=== PATIENT | female | born 1975 | race Two or more races ===

== ENCOUNTER → 2023-02-02 09:50 | Outpatient (BNVA) | payer SELFPAY | PROVIDERS: PCP Physician Assistant Medical; Visit Provider Physician Assistant Surgical | DX: Z13.89 Encounter for screening for other disorder (principal) ==

== ENCOUNTER → 2023-03-03 07:59 | Outpatient (BNVA) | payer MEDICARE, MEDICAID, SELFPAY | PROVIDERS: PCP Physician Assistant Medical; Referring Provider Physician Assistant Medical; Visit Provider Physician Assistant Surgical | DX: L98.7 Excessive and redundant skin and subcutaneous tissue (principal); E66.3 Overweight; Z68.28 Body mass index [BMI] 28.0-28.9, adult | CPT/HCPCS: 99202 ==

== ENCOUNTER → 2023-04-08 08:34 | Outpatient (BNVA) | payer MEDICARE, MEDICAID, SELFPAY | PROVIDERS: Visit Provider Physician Assistant Surgical | DX: E66.3 Overweight (principal); L98.7 Excessive and redundant skin and subcutaneous tissue; K59.00 Constipation, unspecified; Z68.27 Body mass index [BMI] 27.0-27.9, adult | CPT/HCPCS: 99212 ==

== ENCOUNTER 2023-06-01 11:57 | Outpatient (AMB) | payer MEDICARE, MEDICAID, SELFPAY ==
--- NOTE | 2023-06-01 11:58 | MHC.OFFVISWM ---
Intake VS Expanded 06/01/23 12:05 Height 5 ft 1 in Weight 144 lb 12.8 oz BMI 27.4 BP 112/64 Blood Pressure Location Rt brachial Blood Pressure Position Sitting Pulse 69 Pulse Source Pulse Oximeter Temp 98.2 F Temperature Source Temporal Artery Scan Pulse Oximetry 98 Oxygen Delivery Method Room Air Body Fat 39.6 Body Fat Percentage 27.4 Free Fat Mass 105.0 Muscle Mass 99.6 Visceral Mass 5.0 Water Mass 74.8 BMR 1,404 Intake Visit Reasons: (OV) F/U Panniculectomy Chief Controller Station Required: No Allergies acetaminophen [From Percocet] Allergy (Mild, Verified 06/01/23 12:02) OVERDOSE oxycodone [From Percocet] Allergy (Mild, Verified 06/01/23 12:02) OVERDOSE Medication List - Last Reconciled 06/01/23 by TESSA Ludwig bisacodyl (Dulcolax (bisacodyl)) 10 mg SD DAILY 2 days clonazepam 0.5 mg PO TID PRN diclofenac sodium 75 mg PO BID doxepin 50 mg PO BEDTIME famotidine 40 mg PO DAILY gabapentin 300 mg PO DAILY levalbuterol tartrate 45 mcg/actuation 0 mcg inhalation DAILY sennosides (Senna Laxative) 17.2 mg (2 x 8.6 mg) PO BEDTIME PRN 90 days HPI HPI Comments History of Present Illness Details 47 year old female presents to the office for evaluation for possible panniculectomy due to excess skin.? She underwent gastric surgery, gastric bypass on 06/16/[address] Michael Morgan at [facility] in [place], [place].? Initial weight upon presenting to their program was 217 pounds.? She has lost a total of 64.4 pounds since the surgery and as a result has excess skin.? She states she had a lowest weight of 135 pounds and maintained a steady weight for approximately 2 years.? She states that over the last 2 years she has had a 20 pound weight gain.? She had a rash in April 2022 requiring Nystatin powder but has had recurrences.? She reports she was recently in [place] and developed a rash under her pannus due to the heat and this was not only painful but itchy as well.? She applied powder and cream and the rash resolved after 4-5 days.??? The excess skin has interfered with her ADL activities such as bending over, tying shoes and putting on socks/shoes. ? The extra skin has caused a functional deficit due to the physical deformity.? She reports the extra skin to her abdomen is causing her significant difficulty with hygene of her genitals as well. The surgery is expected to restore and improve the functional deficit. She returns to the office today in follow up for the above issue.? Current weight is 144.8 pounds with a BMI of 27.3.? She has lost 9.6 pounds since her appointment.? She denies any current rashes but she applies deoderant to the skin fold under her pannus daily as well as doing her best to keep a fabric barrier between her skin folds. ? She also reports resolution of her constipation.?? Continues MVI daily? Meal plan: 2 Premier Protein shakes, (1.5 scoop in 8 oz low fat unsweetened almond milk each) First shake at 8am-10am Second shake at? 12pm-2pm Dinner at 5pm (5 forks of protein and 5 forks of salad/vegetables). welsh yogurt? at 7-9 pm Drinking 32 oz water daily Exercise plan: Walking outside 4 days per week, 30 minutes, not tracking calories.? PFSH Medical History Pulmonary embolism Right leg DVT Surgical History Hx of breast reduction, elective Hx of section Hx of gastric bypass Family History Mother Diabetes Father No problems noted. Daughter No problems noted. Son No problems noted. Son Prediabetes Social History Alcohol intake: never Patient Tobacco Use Status: Never used Tobacco Physical Exam Vital Signs: Last Vital Signs Temp 98.2 F 06/01/23 12:05 Pulse 69 06/01/23 12:05 BP 112/64 06/01/23 12:05 Pulse Ox 98 06/01/23 12:05 Oxygen Delivery Method Room Air 06/01/23 12:05 BMI result Body Mass Index 27.4 Skin Other: grade 2 pannus, no current dermatitis Assessment & Plan Assessment & Plan (1) Excess skin: Code(s): L98.7 - Excessive and redundant skin and subcutaneous tissue Plan: submit for approval for excess skin removal which is medically necessary to restore function and reduce impact on ADLs and hygiene. Coding Level of Care Code Est Pt Level 3 (39715) Diagnoses Excess skin L98.7
[2023-06-01 12:05] VITALS: BP 112/64; PULSE 69; TEMP 36.8; O2SAT 98; BMI 27.4
== END 2023-06-01 13:07 | disposition home or self-care (01) ==
PROVIDERS: PCP Physician Assistant Medical; Visit Provider Physician Assistant Surgical
DX: L98.7 Excessive and redundant skin and subcutaneous tissue (principal)
CPT/HCPCS: 99213

== ENCOUNTER → 2023-06-01 11:57 | Outpatient (BNVA) | payer MEDICARE, MEDICAID, SELFPAY | PROVIDERS: PCP Physician Assistant Medical; Visit Provider Physician Assistant Surgical | DX: L98.7 Excessive and redundant skin and subcutaneous tissue (principal); Z98.84 Bariatric surgery status | CPT/HCPCS: 99212 ==

== ENCOUNTER 2024-03-06 18:41 | Emergency (ER) | payer MEDICARE, MEDICAID, SELFPAY ==
[2024-03-06 18:58] VITALS: BP 163/64; PULSE 81; RESP 18; TEMP 36.6; O2SAT 97; BMI 28.2
[2024-03-06 20:50] LABS: MANUAL DIFF FLAG NO
[2024-03-06 20:52] LABS: Basophils Percent Auto 0.4 % (0-2); Eosinophils Absolute Auto 0.1 X10*3/uL (0.0-0.4); Eosinophils Percent Auto 1.2 % (0-4); Hematocrit 33.2 % (37.0-47.0); Hemoglobin 10.3 g/dl (12.0-16.0); Imm Gran Abs Auto 0.02 X10*3/uL (0.00-0.03); Imm Gran Pct Auto 0.2 % (0.0-0.4); Lymphocytes Absolute Auto 3.9 X10*3/uL (1.2-4.9); Lymphocytes Percent Auto 47.4 % (20-40); Mean Corpuscular Hemoglobin 27.7 pg (27.0-33.0); Mean Corpuscular Volume 89.2 fL (80.0-98.0); Mean Platelet Volume 9.2 fL (9.4-12.3); Monocytes Absolute Auto 0.7 X10*3/uL (0.1-1.2); Neutrophils Absolute Auto 3.5 x10*3/uL (2.0-8.3); Neutrophils Percent Auto 42.8 % (45-73); Platelet Count 323 X10*3/uL (160-400); Red Blood Count 3.72 X10*6/uL (4.20-5.50); Red Cell Distribution Width 16.4 % (11.0-16.0); White Blood Count 8.1 X10*3/uL (4.8-10.8)
[2024-03-06 21:12] LABS: Alanine Aminotransferase 13 U/L (0-31); Albumin Level 4.1 g/dL (3.5-5.0); Alkaline Phosphatase 93 U/L (39-117); Anion Gap 14 (12-20); Aspartate Amino Transferase 16 U/L (5-31); Bilirubin Total 0.2 mg/dL (0.0-1.0); Blood Urea Nitrogen 13 mg/dL (9-16); Calcium 9.2 mg/dL (8.4-10.2); Carbon Dioxide 19 mmol/L (22-29); Chloride 111 mmol/L (96-108); Creatinine Clr Calc Pharmacy 73.7; Estimated Glomerular Filt Rate > 60; Glucose Random 78 mg/dL (60-115); Potassium 3.8 mmol/L (3.3-5.1); Sodium 140 mmol/L (135-145); Total Protein 6.7 g/dL (6.5-8.0)
[2024-03-07 02:00] VITALS: BP 120/79; PULSE 99; RESP 15; TEMP 36.8; O2SAT 98
[2024-03-07 04:00] VITALS: BP 104/67; PULSE 81; RESP 16; TEMP 36.4; O2SAT 98
--- NOTE | 2024-03-07 04:28 | ED_ITS ---
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 burning sensation on the face multiple complaints denies any significant depression/SI Related Data Home Medications ?Medication ?Instructions ?Recorded ?Confirmed clonazepam 0.5 mg tablet 0.5 mg PO TID PRN 03/03/23 06/01/23 diclofenac sodium 75 mg 75 mg PO BID 03/03/23 06/01/23 tablet,delayed release doxepin 50 mg capsule 50 mg PO BEDTIME 03/03/23 06/01/23 famotidine 40 mg tablet 40 mg PO DAILY 03/03/23 06/01/23 gabapentin 300 mg capsule 300 mg PO DAILY 03/03/23 06/01/23 levalbuterol tartrate 45 0 mcg inhalation DAILY 03/03/23 06/01/23 mcg/actuation aerosol inhaler Previous Rx's ?Medication ?Instructions ?Recorded bisacodyl 10 mg rectal suppository 10 mg GA DAILY 2 days #12 ea 04/08/23 (Dulcolax (bisacodyl)) sennosides 8.6 mg tablet (Senna 17.2 mg (2 x 8.6 mg) PO BEDTIME 11/27/23 Laxative) PRN constipation 90 days #90 tabs Allergies Allergy/AdvReac Type Severity Reaction Status Date / Time acetaminophen [From Percocet] Allergy Mild OVERDOSE Verified 03/06/24 19:02 oxycodone [From Percocet] Allergy Mild OVERDOSE Verified 03/06/24 19:02 Review of Systems 2 Review of Systems: Yes all other systems are reviewed and are negative PMFSH Past Medical History Medical History Pulmonary embolism Right leg DVT Surgical History Hx of section Hx of breast reduction, elective Hx of gastric bypass Family History Family History Mother Diabetes Father No problems noted. Daughter No problems noted. Son No problems noted. Son Prediabetes Social History Social History Alcohol intake: never Patient Tobacco Use Status: Never used Tobacco Smoked in Last 30 Days: No Use of substances other than those prescribed or required for medical reasons: No Advance Directives: No Advance Directives Information Provided: No Do you have a plan to hurt others: No Plan Physical Exam ED Vital Signs: Vital Signs - 24 hr 03/06/24 18:58 03/07/24 02:00 03/07/24 04:00 Temperature 97.9 F 98.2 F 97.6 F Pulse Rate 81 99 81 Respiratory Rate 18 15 16 Blood Pressure 163/64 H 120/79 104/67 Pulse Oximetry 97 98 98 Oxygen Delivery Method Room Air Room Air Room Air 03/07/24 06:00 Temperature 98.2 F Pulse Rate 90 Respiratory Rate 16 Blood Pressure 111/76 Pulse Oximetry 97 Oxygen Delivery Method Room Air BMI result Body Mass Index 28.2 Appearance: Alert. Oriented X3. No acute distress. Anxious Eyes: PERRLA, No Nystagmus ENT: Pharynx normal. Oral Mucosa moist thinning of the hair in the frontal area Neck: Normal inspection. Neck supple. CVS: Normal heart rate and rhythm. Pulses normal. Respiratory: No respiratory distress. Equal air entry bilateral, no wheezing/rales/rhonchi Abdomen: Soft and nontender. Bowel sounds are present, no mass palpable, no CVA tenderness Skin: Skin warm and dry. Normal skin color. Normal skin turgor. Extremities: No lower extremity edema. No calf tenderness Neuro: Oriented X 3. Medical Decision Making Medical Decision Making MDM Narrative: Patient with increased anxiety with multiple complaints felt better after staying in the ER will discharge patient home advised to follow with therapist and PCP Lab Data MDM Lab Attestation statement: I reviewed the patient's lab results. 03/06/24 20:46 03/06/24 20:46 Labs: Lab Results 03/06/24 Range/Units 20:46 WBC 8.1 (4.8-10.8) X10*3/uL RBC 3.72 L (4.20-5.50) X10*6/uL Hgb 10.3 L (12.0-16.0) g/dl Hct 33.2 L (37.0-47.0) % MCV 89.2 (80.0-98.0) fL MCH 27.7 (27.0-33.0) pg MCHC 31.0 (31.0-35.0) g/dl RDW 16.4 H (11.0-16.0) % Plt Count 323 (160-400) X10*3/uL MPV 9.2 L (9.4-12.3) fL Immature Gran % (Auto) 0.2 (0.0-0.4) % Neut % (Auto) 42.8 L (45-73) % Lymph % (Auto) 47.4 H (20-40) % Converse % (Auto) 8.0 (2-11) % Eos % (Auto) 1.2 (0-4) % Baso % (Auto) 0.4 (0-2) % Lymph # (Auto) 3.9 (1.2-4.9) X10*3/uL Converse # (Auto) 0.7 (0.1-1.2) X10*3/uL Eos # (Auto) 0.1 (0.0-0.4) X10*3/uL Baso # (Auto) 0.0 (0.0-0.2) X10*3/uL Abs Immat Gran (auto) 0.02 (0.00-0.03) X10*3/uL Absolute Neuts (auto) 3.5 (2.0-8.3) x10*3/uL Absolute Nucleated RBC 0.000 (0.0-0.012) X10*3/uL Nucleated RBC % (auto) 0.0 (0.0-0.2) /100WBC Sodium 140 (135-145) mmol/L Potassium 3.8 (3.3-5.1) mmol/L Chloride 111 H (96-108) mmol/L Carbon Dioxide 19 L (22-29) mmol/L Anion Gap 14 (12-20) BUN 13 (9-16) mg/dL Creatinine 0.83 (0.5-1.4) mg/dL Estim Creat Clear Calc 73.7 Estimated GFR > 60 Random Glucose 78 (60-115) mg/dL Calcium 9.2 (8.4-10.2) mg/dL Total Bilirubin 0.2 (0.0-1.0) mg/dL AST 16 (5-31) U/L ALT 13 (0-31) U/L Alkaline Phosphatase 93 (39-117) U/L Total Protein 6.7 (6.5-8.0) g/dL Albumin 4.1 (3.5-5.0) g/dL Discharge Plan Discharge Clinical Impression: Anxiety Patient Disposition: Home, Self-Care Instructions: Anxiety (ED) Additional Instructions: Continue medication for anxiety as prescribed by your therapist/PCP Follow with your delivery motorcycle driver for your hair loss Prescriptions: No Action sennosides [Senna Laxative] 8.6 mg tablet 17.2 mg PO BEDTIME PRN (Reason: constipation) 90 Days Qty: 90 0RF gabapentin 300 mg capsule 300 mg PO DAILY diclofenac sodium 75 mg tablet,delayed release (DR/EC) 75 mg PO BID doxepin 50 mg capsule 50 mg PO BEDTIME famotidine 40 mg tablet 40 mg PO DAILY clonazepam 0.5 mg tablet 0.5 mg PO TID PRN levalbuterol tartrate 45 mcg/actuation HFA aerosol inhaler 0 mcg inhalation DAILY bisacodyl [Dulcolax (bisacodyl)] 10 mg suppository 10 mg GA DAILY 2 Days Qty: 12 0RF Print Language: Cambodian
[2024-03-07 06:00] VITALS: BP 111/76; PULSE 90; RESP 16; TEMP 36.8; O2SAT 97
[2024-03-07 06:41] VITALS: BP 111/76; PULSE 90; RESP 16; TEMP 36.8; O2SAT 97
== END 2024-03-07 06:41 | disposition home or self-care (01) ==
PROVIDERS: Emergency Provider Internal Medicine
DX: F41.9 Anxiety disorder, unspecified (principal); R20.8 Other disturbances of skin sensation; Z86.718 Personal history of other venous thrombosis and embolism
CPT/HCPCS: 36415; 80053; 85025; 99283; 99284

== ENCOUNTER 2024-03-09 12:37 | Outpatient (AMB) | payer MEDICARE, MEDICAID, SELFPAY ==
--- NOTE | 2024-03-09 13:30 | MHC.OFFVISWM ---
VS Expanded 03/09/24 13:37 BP 131/80 Blood Pressure Location Rt brachial Blood Pressure Position Sitting Pulse 96 Pulse Source Pulse Oximeter Temp 97.8 F Temperature Source Temporal Artery Scan Pulse Oximetry 99 Oxygen Delivery Method Room Air Height 5 ft 1 in Weight 141 lb 6.4 oz BMI 26.7 Body Fat % 25.9 Body Fat Mass 36.6 Fat Free Mass 104.8 Visceral Fat Rating 5.0 Body Water % 52.7 Body Water Mass 74.6 Muscle Mass/Score 99.4 Basal Metabolic Rate/Score 1,395 Intake Visit Reasons: (OV) Panniculectomy Consult Allergies acetaminophen [From Percocet] Allergy (Mild, Verified 03/09/24 13:33) OVERDOSE oxycodone [From Percocet] Allergy (Mild, Verified 03/09/24 13:33) OVERDOSE HPI Comments Details: 47 year old female presents to the office for evaluation for possible panniculectomy due to excess skin.? She underwent gastric surgery, gastric bypass on 06/16/[address] Michael Morgan at [facility] in [place], [place].? Initial weight upon presenting to their program was 217 pounds.? She has lost a total of 75.6 pounds since the surgery or 34.8 % total body weight loss and as a result has excess skin of her abdomen.? She reports she was recently in [place] and developed a rash under her pannus due to the heat and this was not only painful but itchy as well.? She applied powder and cream and the rash resolved after 4-5 days.???The excess skin has interfered with her ADL activities such as bending over, tying shoes and putting on socks/shoes. ? The extra skin has caused a functional deficit due to the physical deformity.? She reports the extra skin to her abdomen is causing her significant difficulty with hygene of her genitals as well. The surgery is expected to restore and improve the functional deficit. She was last seen in the office in May 2023. At that time, her weight was 144.8 lb with a BMI of 27.3. Weight today is 141.4 lb with a BMI of 26.7, indicating that she is remaining relatively stable in her weight over the last 10 months. She returns to the office today in follow up for the above issue.? She was away for the last 10 months helping her mother recover from illness in [place]. She denies any current rashes but she applies deoderant to the skin fold under her pannus daily as well as doing her best to keep a fabric barrier between her skin folds. She has been using Nystatin cream as needed when the rash recurrs. This has helped resolve the issue, only to recurr again. Worse with warmer weather andincreased activity. ? She also reports resolution of her constipation.?? Continues MVI daily? Meal plan: 2 Premier Protein shakes, (1.5 scoop in 8 oz low fat unsweetened almond milk each) First shake at 8am-10am Second shake at? 12pm-2pm Dinner at 5pm (6 forks of protein and 6 forks of salad/vegetables). Drinking 32 oz water daily Exercise plan: Walking outside 5 days per week, 20-30 minutes, not tracking calories.? PFSH Medical History Pulmonary embolism Right leg DVT Surgical History Hx of section Hx of breast reduction, elective Hx of gastric bypass Family History Mother Diabetes Father No problems noted. Daughter No problems noted. Son No problems noted. Son Prediabetes Social History Alcohol intake: never Patient Tobacco Use Status: Never used Tobacco Physical Exam Vital Signs: Last Vital Signs Temp 97.8 F 03/09/24 13:37 Pulse 96 03/09/24 13:37 BP 131/80 03/09/24 13:37 Pulse Ox 99 03/09/24 13:37 Oxygen Delivery Method Room Air 03/09/24 13:37 BMI result Body Mass Index 26.7 Const General: healthy appearing and no acute distress Resp Effort & Inspection: normal respiratory effort Auscultation: clear to auscultation bilaterally Cardio Rate: regular rate Rhythm: regular rhythm GI Auscultation: normal bowel sounds Skin Other: Grade 2 pannus without active rash. Evidence of old rash by way of slight skin discoloration underneath the abdominal pannus Extrem General: Yes normal to inspection Assessment & Plan Assessment & Plan (1) Excess skin: Code(s): L98.7 - Excessive and redundant skin and subcutaneous tissue Category: Medical Plan: Continue with p.r.n. antifungal. She has maintained a healthy and stable weight over the last 10 months and is experiencing multiple negative impacts to her ADLs with excess skin by way of grade 2 pannus. It is appropriate and medically necessary to have the excess skin surgically removed. Pictures were taken and we will submit to insurance for approval
[2024-03-09 13:37] VITALS: BP 131/80; PULSE 96; TEMP 36.6; O2SAT 99; BMI 26.7
== END 2024-03-09 14:32 | disposition home or self-care (01) ==
PROVIDERS: PCP Physician Assistant Medical; Visit Provider Physician Assistant Surgical
DX: L98.7 Excessive and redundant skin and subcutaneous tissue (principal)
CPT/HCPCS: 99213

== ENCOUNTER → 2024-03-09 12:37 | Outpatient (BNVA) | payer MEDICARE, MEDICAID, SELFPAY | PROVIDERS: PCP Physician Assistant Medical; Visit Provider Physician Assistant Surgical | DX: L98.7 Excessive and redundant skin and subcutaneous tissue (principal); E65 Localized adiposity | CPT/HCPCS: 99212 ==

== ENCOUNTER 2024-06-13 08:03 | Outpatient (AMB) | payer MEDICARE, MEDICAID, SELFPAY ==
[2024-06-13 11:56] VITALS: BMI 26.1
--- NOTE | 2024-06-13 11:56 | A.OFFVIS_ITS ---
VS Expanded 06/13/24 11:56 Height 5 ft 1 in Weight 138 lb 2 oz BMI 26.1 Intake Visit Reasons: TV Pre Op Panniculectomy 06/23/24 Allergies acetaminophen [From Percocet] Allergy (Mild, Verified 06/13/24 11:56) OVERDOSE oxycodone [From Percocet] Allergy (Mild, Verified 06/13/24 11:56) OVERDOSE Medication List - Last Reconciled 06/13/24 by Wilfrid Warren MD bisacodyl (Dulcolax (bisacodyl)) 10 mg [place] DAILY 2 days cephalexin 500 mg PO Q12H clonazepam 0.5 mg PO TID PRN diclofenac sodium 75 mg PO BID doxepin 50 mg PO BEDTIME famotidine 40 mg PO DAILY gabapentin 300 mg PO DAILY levalbuterol tartrate 45 mcg/actuation 0 mcg inhalation DAILY ondansetron 4 mg PO Q12H sennosides (Senna Laxative) 17.2 mg (2 x 8.6 mg) PO BEDTIME PRN 90 days HPI HPI TV Pre Op Panniculectomy 06/23/24: Details: Start time: 11.52am, End time: 12.22pm ?I spent 25 minutes speaking with the patient on the phone plus an additional 5 minutes reviewing and updating records for a total of 30 minutes HPI Comments Details: Overall weight loss: 78.8 lbs, or 36.3% TBWL Breakfast: eggs and toast Lunch: skips Powder Premier shake with 1% milk Dinner: meat and salad [facility] protein bar [facility] Medical History Pulmonary embolism Right leg DVT Surgical History Hx of section Hx of breast reduction, elective Hx of gastric bypass Family History Mother Diabetes Father No problems noted. Daughter No problems noted. Son No problems noted. Son Prediabetes Social History Alcohol intake: never Patient Tobacco Use Status: Never used Tobacco Physical Exam Vital Signs: BMI result Body Mass Index 26.1 Telehealth Telehealth Telehealth Platform: Telephone Location of provider rendering services: practice address Location of patient: address on file Patient Identification confirmed using: Name, : Yes Telehealth method: voice only Patient verbally consented to treatment: Yes Patient verbally consented to billing insurance company: Yes Patient informed of any privacy concerns related to visit: Yes Minutes spent on Phone/Video with Pt.: 30 Assessment & Plan Assessment & Plan (1) Excess skin: Code(s): L98.7 - Excessive and redundant skin and subcutaneous tissue Category: Medical Plan: 1. Plan for panniculectomy. Risks of infection, bleeding, asymmetry, wound dehiscence and blood clots were discussed with the patient. 2. You will have a drain the abdomen that may stay a few weeks before it may be removed 3. You will need to be doing sponge baths the first 1-2 weeks. No showers. You need to have help at home to get you up and limit your activities as much as possible for at least the 4-6 weeks after surgery 4. We will arrange for a visiting nurse to come at home to help you with dressing changes and send me pictures of the procedures. We will send at your home supplies for the dressing changes. 5. Change nutritional plan to TWO Premier shakes (HALF scoop each in 8oz almond milk) at 10am-12pm and 1pm-3pm, one [facility] protein bar at 4pm-6pm, one meal at 7pm (6 forks of protein and 6 forks of salad or vegetables) and one more [employer] protein bar at 9pm-11pm. This will improve weight loss and healing after surgery. 6. Continue all vitamins 7. Stop the Diclofenac as of today Thursday06/13/24 and the Gabapentin as of 06/20/24. 8. Do blood work not fasting any day between Thursday06/14/24 and Thursday06/17/24 and order picker the antibiotic prescription from your pharmacy 9. Risks and complications were discussed the possibility of bleeding that may require transfusion, loss of the umbilicus, wound dehiscence or infection, dog ears , flap asymmetry. We also discussed the importance of strict avoidance of weight lifting. 10. Avoid aspirin, motrin, ibuprofen, Aleve, Advil, Naproxyn. Only Tylenol is OK Orders: Orders Comprehensive Met. Panel Today K90.9 - Intestinal malabsorption, unspecified TSH reflex Free T4 Today K90.9 - Intestinal malabsorption, unspecified Vitamin A Today K90.9 - Intestinal malabsorption, unspecified Hemoglobin A1c Today K90.9 - Intestinal malabsorption, unspecified Prothrombin Time INR Today K90.9 - Intestinal malabsorption, unspecified Vitamin B1 Today K90.9 - Intestinal malabsorption, unspecified Lipid Panel Today K90.9 - Intestinal malabsorption, unspecified Type and Screen Today K90.9 - Intestinal malabsorption, unspecified Vitamin B12 Today K90.9 - Intestinal malabsorption, unspecified Partial Thromboplastin Time Today K90.9 - Intestinal malabsorption, unspecified Vitamin D 25-OH Total Today K90.9 - Intestinal malabsorption, unspecified Insulin Today K90.9 - Intestinal malabsorption, unspecified IRON PROFILE Today K90.9 - Intestinal malabsorption, unspecified C Reactive Protein Today K90.9 - Intestinal malabsorption, unspecified Complete Blood Count Auto Diff Today K90.9 - Intestinal malabsorption, unspecified Ferritin Today K90.9 - Intestinal malabsorption, unspecified Zinc Today K90.9 - Intestinal malabsorption, unspecified Medications: New cephalexin 500 mg PO Q12H 60 caps 2RF M79.3 - Panniculitis, unspecified ondansetron Only take one every 12 hours as needed if you have nausea 4 mg PO Q12H 20 tabs 0RF nausea and vomiting R11.0 - Nausea
== END 2024-06-13 12:23 | disposition home or self-care (01) ==
LOC: HO.HBS 08:03
PROVIDERS: PCP Physician Assistant Medical; Visit Provider Surgery
DX: L98.7 Excessive and redundant skin and subcutaneous tissue (principal)
CPT/HCPCS: 99499

== ENCOUNTER → 2024-06-13 08:03 | Outpatient (BNVA) | payer MEDICARE, MEDICAID, SELFPAY | PROVIDERS: PCP Physician Assistant Medical; Visit Provider Surgery ==

== ENCOUNTER 2024-06-15 10:53 | Outpatient (REF) | payer MEDICARE, MEDICAID, SELFPAY ==
[2024-06-15 11:28] LABS: MANUAL DIFF FLAG NO
[2024-06-15 11:56] LABS: Basophils Percent Auto 0.4 % (0-2); Eosinophils Absolute Auto 0.1 X10*3/uL (0.0-0.4); Eosinophils Percent Auto 0.7 % (0-4); Hematocrit 35.9 % (37.0-47.0); Imm Gran Abs Auto 0.02 X10*3/uL (0.00-0.03); Imm Gran Pct Auto 0.3 % (0.0-0.4); Lymphocytes Absolute Auto 2.6 X10*3/uL (1.2-4.9); Lymphocytes Percent Auto 36.9 % (20-40); Mean Corpuscular HGB Conc 30.6 g/dl (31.0-35.0); Mean Corpuscular Hemoglobin 26.5 pg (27.0-33.0); Mean Corpuscular Volume 86.5 fL (80.0-98.0); Mean Platelet Volume 9.2 fL (9.4-12.3); Monocytes Absolute Auto 0.5 X10*3/uL (0.1-1.2); Monocytes Percent Auto 6.9 % (2-11); Neutrophils Absolute Auto 3.8 x10*3/uL (2.0-8.3); Neutrophils Percent Auto 54.8 % (45-73); Platelet Count 472 X10*3/uL (160-400); Red Blood Count 4.15 X10*6/uL (4.20-5.50); Red Cell Distribution Width 17.4 % (11.0-16.0); White Blood Count 6.9 X10*3/uL (4.8-10.8)
[2024-06-15 12:00] LABS: Estimated Average Glucose 108 mg/dL; Hemoglobin A1c % 5.4 % (<6.0)
[2024-06-15 12:03] LABS: INTERNATIONAL NORM RATIO 0.9 (0.9-1.1); Prothrombin Time 11.1 SEC (11.1-13.3)
[2024-06-15 12:06] LABS: Partial Thromboplastin Time 29.6 SEC (26.0-36.8)
[2024-06-15 12:42] LABS: Alanine Aminotransferase 16 U/L (0-31); Albumin Level 4.1 g/dL (3.5-5.0); Alkaline Phosphatase 92 U/L (39-117); Anion Gap 13 (12-20); Aspartate Amino Transferase 19 U/L (5-31); Bilirubin Total 0.2 mg/dL (0.0-1.0); Blood Urea Nitrogen 13 mg/dL (9-16); C Reactive Protein < 0.10 mg/dL (< or = 0.50); Carbon Dioxide 23 mmol/L (22-29); Chloride 107 mmol/L (96-108); Cholesterol 201 mg/dL (<200); Estimated Glomerular Filt Rate > 60; Glucose Random 87 mg/dL (60-115); HDL Cholesterol 70 mg/dL (>40); Iron 22 mcg/dL (30-160); LDL Cholesterol Calculated 108 mg/dL (<100); Percent Iron Saturation 6 % (15-50); Potassium 3.9 mmol/L (3.3-5.1); Sodium 139 mmol/L (135-145); Total Iron Binding Capacity 381 mcg/dL (228-428); Total Protein 6.9 g/dL (6.5-8.0); Triglycerides 119 mg/dL (<150); Unsaturated Iron Binding 359 ug/dL
[2024-06-15 12:51] LABS: Ferritin 6 ng/mL (10-250); Insulin 5 uU/mL (2-29); TSH reflex Free T4 1.56 uIU/mL (0.32-4.0); Vitamin D 25-OH Total 12.6 ng/mL (>30)
[2024-06-15 12:57] LABS: Vitamin B12 304 pg/mL (200-900)
[2024-06-19 10:29] LABS: Vitamin A 69 mcg/dL (38-98)
[2024-06-20 03:09] LABS: Zinc 76 mcg/dL (60-130)
[2024-06-21 13:13] LABS: Vitamin B1 21 nmol/L (8-30)
== END 2024-06-15 10:54 | disposition home or self-care (01) ==
LOC: HO.LAB 10:53
PROVIDERS: PCP Registered Nurse; Visit Provider Surgery
DX: K90.9 Intestinal malabsorption, unspecified (principal); Z13.1 Encounter for screening for diabetes mellitus
CPT/HCPCS: 36415; 80053; 80061; 82306; 82607; 82728; 83036; 83525; 83540; 84425; 84443; 84590; 84630; 85025; 85610; 85730; 86140

== ENCOUNTER → 2024-06-16 08:35 | Outpatient (BNVA) | payer MEDICARE, MEDICAID, SELFPAY | PROVIDERS: PCP Physician Assistant Medical; Visit Provider Surgery ==

== ENCOUNTER → 2024-06-21 12:25 | Outpatient (REF) | payer MEDICARE, SELFPAY ==
--- NOTE | 2024-06-21 12:32 | ECG_ITS ---
Test Reason : PREOP Blood Pressure : / mmHG Vent. Rate : 104 BPM Atrial Rate : 104 BPM P-R Int : 150 ms QRS Dur : 080 ms QT Int : 338 ms P-R-T Axes : 047 059 025 degrees QTc Int : 444 ms Sinus tachycardia with Premature atrial complexes Otherwise normal ECG No previous ECGs available Referred By: Levi Rivera Electronically Signed By:HOWARD FARRIS
== END ==
LOC: HO.CARD 12:25
PROVIDERS: PCP Internal Medicine; Visit Provider Physician Assistant Surgical
DX: Z01.818 Encounter for other preprocedural examination (principal)
CPT/HCPCS: 93005

== ENCOUNTER 2024-06-23 09:07 | Day surgery (SDC) | payer MEDICARE, SELFPAY ==
[2024-06-14 10:32] VITALS: BMI 26.6
--- NOTE | 2024-06-21 13:49 | HO.ANESPROP2 ---
Documented by User: Gayla Kirk NP 06/21/24 13:50 [facility] Active Problems Active Problems: All Active Problems Pre-op evaluation (Acute) Constipation (Acute) Excess skin (Acute) Overweight (BMI 25.0-29.9) (Acute) Past Medical History Medical History Regularly irregular pulse rhythym Anxiety GERD (gastroesophageal reflux disease) Former smoker Pulmonary embolism Right leg DVT Family History Family History Mother Diabetes Father No problems noted. Daughter No problems noted. Son No problems noted. Son Prediabetes Surgical History Surgical History Hx of section Hx of breast reduction, elective Hx of gastric bypass Social History Social History Household Members: Family Housing: Apartment Are you a primary caregivers non medical to a significant other at home: Yes (son 15 yr old) Do you presently have visiting nurse or other home services: No Alcohol intake: never Patient Tobacco Use Status: Never used Tobacco Tobacco use type: Cigarette Smoked in Last 30 Days: No Use of substances other than those prescribed or required for medical reasons: No Have you been hit, kicked, punched, or otherwise hurt by someone within the past year? If so, by whom?: No Are you DNR?: No Advance Directives: No Advance Directives Information Provided: Yes Advance Directives on File: No Recently lost weight without trying: No Patient : No FDLMP: 06/05/2024 : No Meds Allergies Allergy/AdvReac Type Severity Reaction Status Date / Time oxycodone [From Percocet] Allergy Severe severe Verified 06/14/24 10:37 vomiting, dizziness Home Medications ?Medication ?Instructions ?Recorded ?Confirmed ?Last Taken ?Type clonazepam 0.5 mg tablet 0.5 mg PO TID PRN Anxiety 03/03/23 06/14/24 Unknown History diclofenac sodium 75 mg 75 mg PO BID 03/03/23 06/14/24 Unknown History tablet,delayed release doxepin 50 mg capsule 50 mg PO BEDTIME 03/03/23 06/14/24 Unknown History famotidine 40 mg tablet 40 mg PO DAILY 03/03/23 06/14/24 Unknown History gabapentin 300 mg capsule 300 mg PO DAILY 03/03/23 06/14/24 Unknown History levalbuterol tartrate 45 0 mcg inhalation DAILY 03/03/23 06/14/24 Unknown History mcg/actuation aerosol inhaler Exam Height,Weight and Vital Signs: Height 5 ft 1 in Weight 63.957 kg Pertinent Lab Results Pertinent Lab Results: Laboratory Tests 06/15/24 11:20 Blood Type A Positive Antibody Screen NEGATIVE Laboratory Tests 06/15/24 11:20 WBC 6.9 Hgb 11.0 L Hct 35.9 L Plt Count 472 H D Sodium 139 Potassium 3.9 Chloride 107 Carbon Dioxide 23 BUN 13 Creatinine 0.88 Narrative Narrative: EKG 06/2024 Vent. Rate : 104 BPM Atrial Rate : 104 BPM P-R Int : 150 ms QRS Dur : 080 ms QT Int : 338 ms P-R-T Axes : 047 059 025 degrees QTc Int : 444 ms Sinus tachycardia with Premature atrial complexes Otherwise normal ECG No previous ECGs available Assessment and Plan Assessment Anesthesia Assessment: Chart Reviewed Documented by User: Mirta Palma MD 06/23/24 11:36 HPI - Anesthesia Eval Consult details Narrative: panniculectomy PMFSH Past Medical History Medical History Regularly irregular pulse rhythym Anxiety GERD (gastroesophageal reflux disease) Former smoker Pulmonary embolism Right leg DVT Family History Family History Mother Diabetes Father No problems noted. Daughter No problems noted. Son No problems noted. Son Prediabetes Family history of problems with anesthesia: No Surgical History Surgical History Hx of section Hx of breast reduction, elective Hx of gastric bypass History of Problems with Anesthesia: No Social History Social History Household Members: Family Housing: Apartment Are you a primary caregivers non medical to a significant other at home: Yes (son 15 yr old) Do you presently have visiting nurse or other home services: No Alcohol intake: never Patient Tobacco Use Status: Never used Tobacco Tobacco use type: Cigarette Smoked in Last 30 Days: No Use of substances other than those prescribed or required for medical reasons: No Have you been hit, kicked, punched, or otherwise hurt by someone within the past year? If so, by whom?: No Are you DNR?: No Advance Directives: No Advance Directives Information Provided: Yes Advance Directives on File: No Recently lost weight without trying: No Patient : No FDLMP: 06/05/2024 : No Meds Allergies Allergy/AdvReac Type Severity Reaction Status Date / Time oxycodone [From Percocet] Allergy Severe severe Verified 06/14/24 10:37 vomiting, dizziness Home Medications ?Medication ?Instructions ?Recorded ?Confirmed ?Last Taken ?Type clonazepam 0.5 mg tablet 0.5 mg PO TID PRN Anxiety 03/03/23 06/14/24 Unknown History diclofenac sodium 75 mg 75 mg PO BID 03/03/23 06/14/24 Unknown History tablet,delayed release doxepin 50 mg capsule 50 mg PO BEDTIME 03/03/23 06/14/24 Unknown History famotidine 40 mg tablet 40 mg PO DAILY 03/03/23 06/14/24 Unknown History gabapentin 300 mg capsule 300 mg PO DAILY 03/03/23 06/14/24 Unknown History levalbuterol tartrate 45 0 mcg inhalation DAILY 03/03/23 06/14/24 Unknown History mcg/actuation aerosol inhaler Exam Airway Mallampati Class: II TM Dist: >3cm Neck ROM: Full Heart: rrr Lungs: cta Assessment and Plan Assessment Anesthesia Assessment: Anesthesia Plan Discussed Final Anesthetic Review Family History of Problems with Anesthesia: No History of Problems with Anesthesia: No NPO: Yes ASA Class: III Final Preanesthetic Review: No Changes in Pt Med Stat, Meds/Allgs Chart Reviewed, Consent Obtained/Reviewed and Anes Risks/Benef Reviewed Patient Risk: Intermediate Procedure Risk: Intermediate Anesthetic Plan Anesthetic Plan: GA Disposition: Standard PACU
[2024-06-23] VITALS (10 sets, daily range): BP systolic 103–122; BP diastolic 62–78; PULSE 94–111; RESP 16–18; TEMP 36.4–37; O2SAT 97–99
--- NOTE | 2024-06-23 10:51 | W.MHC.F2F ---
Service Date Service Date: 06/23/24 Encounter Date of encounter: 06/23/24 Reasons for Services Signs and symptoms assessed: s/p panniculectomy with drain placement Reason for jail: wound care Homebound: Leaving the home is medically contraindicated at this time without the asist of a device and/or another person due th the listed conditions above and below. Reason homebound: unable to drive Certification: Based on the above findings, I certify that this patient is confined to the home and needs intermittent jail care, physical therapy and/or speech therapy, or continues to need occupational therapy. The patient is under my care, and I have initiated the establishment of the plan of care. The patient will be followed by a physician who will periodically review the plan of care. Time Spent With Patient Time: Total time managing care of this patient today __30__ minutes.
[2024-06-23 11:27] LABS: UPreg QC Valid YES; Urine Pregnancy NEGATIVE (NEGATIVE)
[2024-06-23] MEDS: Aprepitant 32 MG/4.4 ML VIAL IVPUSH (11:29)
[2024-06-23] MEDS: Lactated Ringers 1,000 ML 100 ML IVCONT (11:29)
--- NOTE | 2024-06-23 11:59 | MHC.SHP ---
Pre-Procedural Eval Section A - 24 Hr Update-Section A only Date of Service: 06/23/24 The patient is an INPATIENT: No The patient has been examined within 24 hours of the surgical procedure. The History & Physical has been completed within 30 days and I have reviewed it.: Yes Section B - Complete if H&P > 30 days Chief Complaint: Excessive and redundant skin and subcutaneous tiss Relevant Family History (Specify if Yes): No Relevant Social History: None Present Medications: None Medical History: No relevant PMH History of Previous Operations: Relevant previous surgery/procedure and date(s) (laparoscopic gastric bypass) Allergies: Allergies Allergy/AdvReac Type Severity Reaction Status Date / Time oxycodone [From Percocet] Allergy Severe severe Verified 06/14/24 10:37 vomiting, dizziness Review of Systems Sugical H&P ROS: Negative: Constitution, Cardiovascular, Respiratory, Neurological, Psychiatric, Hem-Onc, Allergic/Immunologic, Gastrointestinal, Genitourinary, Musculoskeletal, Integumentary, Endocrine and Eyes/Ears/Nose/Throat Exam Surgical H&P Exam: Normal: HEENT, Normal: Heart, Normal: Lungs, Normal: Extremities, Normal: Skin and Normal: Neurological and Significant Findings: Abdomen (large abdominal pannus) Plan Diagnosis/Plan: Unchanged I have reviewed the history and physical and performed a pertinent physical examination on my patient. No changes have occurred unless specified. Time Spent With Patient Time: Total time managing care of this patient today ____ minutes.
--- NOTE | 2024-06-23 12:06 | PM.OP ---
Brief Operative Note Date of Service: 06/23/24 Pre-op diagnosis: Excess skin Post-op diagnosis: same Procedure: PROCEDURE: Panniculectomy with umbilical transposition and bilateral subcutaneous fat flaps INDICATION: This a 48 year old female who underwent laparoscopic gastric bypass elsewhere. She had an excellent result achieving a BMI of 26.1 kg/m2 with a total weight loss of 78.8lbs, or 36.3% of her TBWL. As a result, she has developed panniculitis with foul odor which has not resolved despite continuous use of clotrimazole ointment as well as skin irritation. On exam she has significant skin laxity due to massive weight loss, with the abdominal pannus completely hanging 4cm below the pubis. Panniculectomy was recommended. We discussed the two options for the panniculectomy of using a combined vertical and horizontal incisions or just a horizontal (bikini) incision. It was my recommendation to do only horizontal incision based on her body habitus and skin laxity. The patient agreed with this. Risks and complications were discussed with the patient including bleeding, infection, umbilical loss, flap necrosis, asymmetry, dehiscence, seroma, VTE. The patient understood the risks and was in agreement to proceed with surgery. PROCEDURE: The incisions were appropriately marked at the preop area with the patient standing and laying down. After induction of general anesthesia a Perea catheter and pneumatic compression devices were placed. The patient was prepped and draped in the usual sterile manner and the incisions were marked again and confirmed. The skin was infiltrated with lidocaine and epinephrine. The #10 blade scalpel was used for the large incisions and the #15 blade scalpel for the umbilicus. Cautery was used to divide the subcutaneous tissues until the fascia was identified. Then I used the cautery to separate the pannus from the fascia. The inferior incision was made initially and I mobilized the flap for a several centimeters cephalad to the umbilicus. The umbilicus was incised circumferentially and detached from the surrounding tissues all the way to the fascia while its stalk was preserved. With the patient in reflex position I confirmed that the skin flaps were appropriate and would allow for the tissues to come together with reasonable tension. At that point a horizontal incision was made 4 cm above the umbilicus. #10 blade was used for the skin, cautery for the dermis and for the remaining tissues. A subcutaneous fat flap was raised from the upper skin flap in order to fill the space under the skin and support the closure of the two flaps. In addition the inferior flap was mobilized caudally for a few centimeters to create a space for the subcutaneous fat flap as well as relieve tension from the closure. A circumferential incision was made at the area where the umbilicus would be re-implanted. The umbilicus was appropriately oriented and was delivered through the defect and was secured in place with a [place]. No bleeding was noted anywhere. One DIANE drain was placed from the left corner of the horizontal incision across the wound and was secured in place with a silk suture. A total of 7ml of Zynrelef was applied on top of the fascia and under the subcutaneous fat flaps. The subcutaneous fat flap was secured under the inferior flap with several interrupted 3.0 Monocryl sutures. The two flaps were brought together and were attached at the midline of the horizontal incision with a #3.0 Monocryl suture. At that point the umbilicus was properly oriented and was re-approximated to the skin with 8 interrupted 3.0 Monocryl sutures. In a similar fashion the skin flaps were re-approximated with multiple 3.0 Monocryl sutures. The skin was closed in all incisions and umbilicus with 4.0 Monocryl sutures. Steri-strips, xeroform gauzes and gauzes were used to cover the incisions. An abdominal binder was also placed. The was awaken and was transferred to the recover room in a stable condition. I was present and performed the entire procedure. Ms. Alexander was the first mate. Emmanuel Warren MD, PhD, FACS Surgeon: Wilfrid Warren MD Surgeon: Wilfrid Warren MD Anesthesia: GETA, local and other (7ml Zynrelef) Was an [employer] used for this Procedure?: No [employer]: Glenis Gomez Estimated blood loss (mL): 10 IV fluids (mL): 1,500 Urine output (mL): 150 Pathology: other (Abdominal pannus) Condition: stable Disposition: PACU
== END 2024-06-23 19:04 | disposition home or self-care (01) ==
PROVIDERS: Nurse Practitioner; PCP Registered Nurse; Visit Provider Surgery
PROC: 0JB80ZZ Excision of Abdomen Subcutaneous Tissue and Fascia, Open Approach (ICD-10-PCS; CPT 15830; principal; 2024-06-23 12:20)
DX: L98.7 Excessive and redundant skin and subcutaneous tissue (principal); M79.3 Panniculitis, unspecified; E65 Localized adiposity; K90.9 Intestinal malabsorption, unspecified; R11.0 Nausea; Z98.84 Bariatric surgery status; E55.9 Vitamin D deficiency, unspecified; L65.9 Nonscarring hair loss, unspecified; I26.99 Other pulmonary embolism without acute cor pulmonale; I82.5Z1 Chronic embolism and thrombosis of unspecified deep veins of right distal lower extremity; Z79.899 Other long term (current) drug therapy; Z88.5 Allergy status to narcotic agent
CPT/HCPCS: 15830; 15847; 81025; 86850; 86900; 86901; 88304; C9088; C9145; J0131; J0690; J1100; J1170; J2250; J2371; J2405; J2704; J3010; J3370

== ENCOUNTER → 2024-06-23 09:07 | Outpatient (BNV) | payer MEDICARE, SELFPAY | PROVIDERS: PCP Registered Nurse; Visit Provider Physician Assistant Surgical | DX: M79.3 Panniculitis, unspecified (principal); L98.7 Excessive and redundant skin and subcutaneous tissue | CPT/HCPCS: 15830; G0180 ==

== ENCOUNTER 2024-06-30 11:38 | Outpatient (AMB) | payer MEDICARE, SELFPAY ==
--- NOTE | 2024-06-30 11:46 | MHC.OFFVISWM ---
VS Expanded 06/30/24 12:07 BP 127/70 Blood Pressure Location Rt brachial Blood Pressure Position Sitting Pulse 97 Pulse Source Pulse Oximeter Temp 97.6 F Temperature Source Temporal Artery Scan Pulse Oximetry 95 Oxygen Delivery Method Room Air Intake Visit Reasons: (OV) s/p Panniculectomy 06/23/24 Allergies oxycodone [From Percocet] Allergy (Severe, Verified 06/30/24 12:08) severe vomiting, dizziness HPI Comments Details: Patient is a 48-year-old female who returns to the office today in follow-up. She is status post panniculectomy performed on 06/1924. She reports taking the antibiotics and following her meal plan as recommended. She did have difficulty with constipation that has since resolved. She has a longstanding history of chronic constipation for which she is going to pursue gastroenterology she reports proximally 50-60 mL of serosanguineous fluid from the collection bulb [facility] Medical History Regularly irregular pulse rhythym Anxiety GERD (gastroesophageal reflux disease) Former smoker Pulmonary embolism Right leg DVT Surgical History Hx of section Hx of breast reduction, elective Hx of gastric bypass Family History Mother Diabetes Father No problems noted. Daughter No problems noted. Son No problems noted. Son Prediabetes Social History Household Members: Family Housing: Apartment Are you a primary manager intensive care unit to a significant other at home: Yes (son 15 yr old) Do you presently have visiting nurse or other home services: No 75 years or older and lives alone: No Alcohol intake: never Patient Tobacco Use Status: Former Tobacco user Tobacco use type: Cigarette Physical Exam Vital Signs: Last Vital Signs Temp 97.6 F 06/30/24 12:07 Pulse 97 06/30/24 12:07 BP 127/70 06/30/24 12:07 Pulse Ox 95 06/30/24 12:07 Oxygen Delivery Method Room Air 06/30/24 12:07 Skin Other: Transverse abdominal incision healing very nicely. Umbilicus is viable with a very small wedge of ecchymosis in the 6 o'clock position Assessment & Plan Assessment & Plan (1) S/P panniculectomy: Code(s): Z98.890 - Other specified postprocedural states Category: Surgical Plan: Continue meal plan per Dr. Warren. Continue antibiotics. Continue dressing changes. Continue to monitor drain output. Continue to wear abdominal binder. Continue bowel regimen as she has been doing.
[2024-06-30 12:07] VITALS: BP 127/70; PULSE 97; TEMP 36.4; O2SAT 95
== END 2024-06-30 14:03 | disposition home or self-care (01) ==
PROVIDERS: PCP Registered Nurse; Visit Provider Physician Assistant Surgical
DX: Z98.890 Other specified postprocedural states (principal)
CPT/HCPCS: 99024

== ENCOUNTER → 2024-06-30 11:38 | Outpatient (BNVA) | payer MEDICARE, SELFPAY | PROVIDERS: PCP Registered Nurse; Visit Provider Physician Assistant Surgical | DX: Z48.817 Encounter for surgical aftercare following surgery on the skin and subcutaneous tissue (principal); Z98.890 Other specified postprocedural states | CPT/HCPCS: 99212 ==

== ENCOUNTER 2024-07-06 09:25 | Outpatient (AMB) | payer MEDICARE, SELFPAY ==
[2024-07-06 09:51] VITALS: BP 116/70; PULSE 95; TEMP 36.6; O2SAT 97
--- NOTE | 2024-07-06 09:51 | MHC.OFFVISWM ---
VS Expanded 07/06/24 09:51 BP 116/70 Blood Pressure Location Rt brachial Blood Pressure Position Sitting Pulse 95 Pulse Source Pulse Oximeter Temp 97.9 F Temperature Source Temporal Artery Scan Pulse Oximetry 97 Oxygen Delivery Method Room Air Intake Visit Reasons: (OV) s/p Panniculectomy 06/23/24 Allergies oxycodone [From Percocet] Allergy (Severe, Verified 07/06/24 09:52) severe vomiting, dizziness HPI Comments Details: 48-year-old female returns to the office today in follow-up. She is status post panniculectomy on 06/21/2024. She was asked to come into the office to evaluate her umbilicus which has dehisced in the 3 to 6 o'clock position, reporting 50-60 mL serosanguinois fluid in the collection bulb daily. Doing 3 ensure shakes per day. Continuing her antibiotics. [facility] Medical History Regularly irregular pulse rhythym Anxiety GERD (gastroesophageal reflux disease) Former smoker Pulmonary embolism Right leg DVT Surgical History Hx of section Hx of breast reduction, elective Hx of gastric bypass Family History Mother Diabetes Father No problems noted. Daughter No problems noted. Son No problems noted. Son Prediabetes Social History Household Members: Family Housing: Apartment Are you a primary cna caregiver to a significant other at home: Yes (son 15 yr old) Do you presently have visiting nurse or other home services: No 75 years or older and lives alone: No Alcohol intake: never Patient Tobacco Use Status: Former Tobacco user Tobacco use type: Cigarette Physical Exam Vital Signs: Last Vital Signs Temp 97.9 F 07/06/24 09:51 Pulse 95 07/06/24 09:51 BP 116/70 07/06/24 09:51 Pulse Ox 97 07/06/24 09:51 Oxygen Delivery Method Room Air 07/06/24 09:51 Skin Other: Dehisced area from 3:00 to 6:00. Umbilicus remained viable although ecchymosis noted in the 6:00 to 9:00 area. No purulent drainage. Assessment & Plan Assessment & Plan (1) S/P panniculectomy: Code(s): Z98.890 - Other specified postprocedural states Category: Surgical Plan: Continue meal plan as discussed with Dr. Warren. Encouraged to avoid any activity. Continue antibiotics. Return to the office on Thursday. (2) External incisional dehiscence: Code(s): T81.31XA - Disruption of external operation (surgical) wound, not elsewhere classified, initial encounter Category: Medical Plan: The area was prepped and draped in standard sterile surgical fashion. One 3-0 nylon vertical mattress suture was placed after infiltration of 3 cc of lidocaine with epinephrine. There was no bleeding and patient tolerated the procedure well. The patient was then dressed with Xeroform within the umbilicus, 2 x 2 gauze and tape. She was told to avoid any showers or getting the area wet. She will follow-up in the office on Thursday.
== END 2024-07-06 15:24 | disposition home or self-care (01) ==
LOC: HO.HBS 09:25
PROVIDERS: PCP Registered Nurse; Visit Provider Physician Assistant Surgical
DX: T81.31XA Disruption of external operation (surgical) wound, not elsewhere classified, initial encounter (principal); Z98.890 Other specified postprocedural states
CPT/HCPCS: 99024

== ENCOUNTER → 2024-07-06 09:25 | Outpatient (BNVA) | payer MEDICARE, SELFPAY | PROVIDERS: PCP Registered Nurse; Visit Provider Physician Assistant Surgical | DX: Z48.817 Encounter for surgical aftercare following surgery on the skin and subcutaneous tissue (principal); T81.31XA Disruption of external operation (surgical) wound, not elsewhere classified, initial encounter; S31.105A Unspecified open wound of abdominal wall, periumbilic region without penetration into peritoneal cavity, initial encounter | CPT/HCPCS: 99212 ==

== ENCOUNTER 2024-07-08 10:26 | Outpatient (AMB) | payer MEDICARE, MEDICAID, SELFPAY ==
--- NOTE | 2024-07-08 10:31 | A.OFFVIS_ITS ---
VS Expanded 07/08/24 10:36 BP 130/77 Blood Pressure Location Rt brachial Blood Pressure Position Sitting Pulse 101 H Pulse Source Pulse Oximeter Temp 98.1 F Temperature Source Temporal Artery Scan Pulse Oximetry 98 Oxygen Delivery Method Room Air Intake Visit Reasons: (OV) s/p Panniculectomy 06/23/24 Allergies oxycodone [From Percocet] Allergy (Severe, Verified 07/08/24 10:37) severe vomiting, dizziness HPI Comments Details: 48-year-old female returns to the office today in follow-up. She was last seen 2 days ago when a 3-0 nylon suture was placed at the umbilical dehiscence in the left lateral position. Since then, she reports she has been up and moving around although has tried to minimize her activity. She reports approximately 25-30 mL of drainage from the collection bulb serosanguineous fluid. She continues antibiotics and following the meal plan. She is complaining of some constipation. [facility] Medical History Regularly irregular pulse rhythym Anxiety GERD (gastroesophageal reflux disease) Former smoker Pulmonary embolism Right leg DVT Surgical History Hx of section Hx of breast reduction, elective Hx of gastric bypass Family History Mother Diabetes Father No problems noted. Daughter No problems noted. Son No problems noted. Son Prediabetes Social History Household Members: Family Housing: Apartment Are you a primary healthcare management consultant to a significant other at home: Yes (son 15 yr old) Do you presently have visiting nurse or other home services: No 75 years or older and lives alone: No Alcohol intake: never Patient Tobacco Use Status: Former Tobacco user Tobacco use type: Cigarette Physical Exam Vital Signs: Last Vital Signs Temp 98.1 F 07/08/24 10:36 Pulse 101 H 07/08/24 10:36 BP 130/77 07/08/24 10:36 Pulse Ox 98 07/08/24 10:36 Oxygen Delivery Method Room Air 07/08/24 10:36 Skin Other: Left lateral suture of the umbilicus remains in place. Umbilicus appears viable. There is dehiscence noted on the right lateral edge although no evidence of infection. Assessment & Plan Assessment & Plan (1) External incisional dehiscence: Code(s): T81.31XA - Disruption of external operation (surgical) wound, not elsewhere classified, initial encounter Category: Medical Plan: Continue current meal plan, antibiotics, abdominal binder, minimal activity. We will have her return to the office in 3 days' time. She may have the umbilical dressing change by nursing on Thursday. Encouraged to increase the Metamucil to 2 tbsp daily and increase MiraLax to 2 packets daily, increasing to 3 packets daily on Thursday or Thursday if no bowel movement.
[2024-07-08 10:36] VITALS: BP 130/77; PULSE 101; TEMP 36.7; O2SAT 98
== END 2024-07-08 10:53 | disposition home or self-care (01) ==
PROVIDERS: PCP Physician Assistant Medical; Visit Provider Physician Assistant Surgical
DX: T81.31XA Disruption of external operation (surgical) wound, not elsewhere classified, initial encounter (principal)
CPT/HCPCS: 99024

== ENCOUNTER → 2024-07-08 10:26 | Outpatient (BNVA) | payer MEDICARE, MEDICAID, SELFPAY | PROVIDERS: PCP Physician Assistant Medical; Visit Provider Physician Assistant Surgical | DX: T81.31XD Disruption of external operation (surgical) wound, not elsewhere classified, subsequent encounter (principal); X58.XXXD Exposure to other specified factors, subsequent encounter; Z79.2 Long term (current) use of antibiotics; Z98.890 Other specified postprocedural states | CPT/HCPCS: 99212 ==

== ENCOUNTER 2024-07-11 12:36 | Outpatient (AMB) | payer MEDICARE, MEDICAID, SELFPAY ==
--- NOTE | 2024-07-11 13:03 | MHC.OFFVISWM ---
VS Expanded 07/11/24 13:16 BP 122/79 Blood Pressure Location Rt brachial Blood Pressure Position Sitting Pulse 99 Pulse Source Pulse Oximeter Temp 97.6 F Temperature Source Temporal Artery Scan Pulse Oximetry 100 Oxygen Delivery Method Room Air Intake Visit Reasons: (OV) s/p Panniculectomy 06/23/24 Allergies oxycodone [From Percocet] Allergy (Severe, Verified 07/11/24 13:17) severe vomiting, dizziness HPI Comments Details: 48-year-old female returns to the office today in follow-up. She has history of panniculectomy performed on 06/1924. She had dehiscence of her umbilicus in the 9 o'clock position. Suture placed last week with reapproximation. Since being seen on Thursday, she has had proximally 30 mL of serosanguineous fluid from the collection bulb. She denies significant activity however her umbilicus appears worse. She reports that she is continuing her meal plan and taking her antibiotics. [facility] Medical History (Updated 07/06/24 @ 15:21 by TESSA Ludwig) Regularly irregular pulse rhythym Anxiety GERD (gastroesophageal reflux disease) Former smoker Pulmonary embolism Right leg DVT Surgical History (Updated 07/11/24 @ 13:17 by Sonia Long CMA) S/P panniculectomy Hx of section Hx of breast reduction, elective Hx of gastric bypass Family History Mother Diabetes Father No problems noted. Daughter No problems noted. Son No problems noted. Son Prediabetes Social History Household Members: Family Housing: Apartment Are you a primary vp care management to a significant other at home: Yes (son 15 yr old) Do you presently have visiting nurse or other home services: No 75 years or older and lives alone: No Alcohol intake: never Patient Tobacco Use Status: Former Tobacco user Tobacco use type: Cigarette Physical Exam Skin Other: New area of dehiscence in the 10-2 position, no evidence of infection. Umbilicus still appears to be viable. Assessment & Plan Assessment & Plan (1) S/P panniculectomy: Code(s): Z98.890 - Other specified postprocedural states Category: Surgical Plan: Umbilical dehiscence. Continue antibiotics, gentle packing with Xeroform, monitoring drain output. Minimal activity. Return to clinic 3 days
[2024-07-11 13:16] VITALS: BP 122/79; PULSE 99; TEMP 36.4; O2SAT 100
== END 2024-07-11 13:45 | disposition home or self-care (01) ==
PROVIDERS: PCP Physician Assistant Medical; Visit Provider Physician Assistant Surgical
DX: Z98.890 Other specified postprocedural states (principal)
CPT/HCPCS: 99024

== ENCOUNTER → 2024-07-11 12:36 | Outpatient (BNVA) | payer MEDICARE, MEDICAID, SELFPAY | PROVIDERS: PCP Physician Assistant Medical; Visit Provider Physician Assistant Surgical | DX: Z98.890 Other specified postprocedural states (principal) | CPT/HCPCS: 99212 ==

== ENCOUNTER 2024-07-14 12:54 | Outpatient (AMB) | payer MEDICARE, MEDICAID, SELFPAY ==
--- NOTE | 2024-07-14 13:20 | A.OFFVIS_ITS ---
VS Expanded 07/14/24 13:21 BP 139/83 Blood Pressure Location Rt brachial Blood Pressure Position Sitting Pulse 105 H Pulse Source Pulse Oximeter Temp 97.6 F Temperature Source Temporal Artery Scan Pulse Oximetry 95 Oxygen Delivery Method Room Air Intake Visit Reasons: (OV) s/p Panniculectomy 06/23/24 Allergies oxycodone [From Percocet] Allergy (Severe, Verified 07/14/24 13:22) severe vomiting, dizziness HPI Comments Details: 48-year-old female returns to the office today in follow-up. She has history of panniculectomy performed on 06/1924. She had dehiscence of her umbilicus in the 9 o'clock position. Suture placed with reapproximation. Since being seen on thursday, she has had approximally 25-30 mL of serosanguineous fluid from the randi ection bulb. She denies significant activity however her umbilicus appears worse. She reports that she is continuing her meal plan and taking her antibiotics. [facility] Medical History (Updated 07/06/24 @ 15:21 by TESSA Ludwig) Regularly irregular pulse rhythym Anxiety GERD (gastroesophageal reflux disease) Former smoker Pulmonary embolism Right leg DVT Surgical History (Updated 07/11/24 @ 13:17 by Sonia Long CMA) S/P panniculectomy Hx of section Hx of breast reduction, elective Hx of gastric bypass Family History Mother Diabetes Father No problems noted. Daughter No problems noted. Son No problems noted. Son Prediabetes Social History Household Members: Family Housing: Apartment Are you a primary manager care management to a significant other at home: Yes (son 15 yr old) Do you presently have visiting nurse or other home services: No 75 years or older and lives alone: No Alcohol intake: never Patient Tobacco Use Status: Former Tobacco user Tobacco use type: Cigarette Physical Exam Skin Other: Dehiscence of the original suture line around the umbilicus except at the postoperative suture placed in the 9 o'clock position. There is no evidence of infection. Granulation tissue is forming. Assessment & Plan Assessment & Plan (1) External incisional dehiscence: Code(s): T81.31XA - Disruption of external operation (surgical) wound, not elsewhere classified, initial encounter Category: Medical Plan: Continue meal plan. Continue antibiotics. Continue gentle packing with Xeroform gauze. Keep the area clean, dry, covered. Return to clinic Thursday
[2024-07-14 13:21] VITALS: BP 139/83; PULSE 105; TEMP 36.4; O2SAT 95
== END 2024-07-14 13:22 | disposition home or self-care (01) ==
PROVIDERS: PCP Physician Assistant Medical; Visit Provider Physician Assistant Surgical
DX: T81.31XA Disruption of external operation (surgical) wound, not elsewhere classified, initial encounter (principal)
CPT/HCPCS: 99024

== ENCOUNTER → 2024-07-14 12:54 | Outpatient (BNVA) | payer MEDICARE, MEDICAID, SELFPAY | PROVIDERS: PCP Physician Assistant Medical; Visit Provider Physician Assistant Surgical | DX: T81.31XA Disruption of external operation (surgical) wound, not elsewhere classified, initial encounter (principal); Z87.19 Personal history of other diseases of the digestive system; Z98.890 Other specified postprocedural states | CPT/HCPCS: 99212 ==

== ENCOUNTER 2024-07-21 11:00 | Outpatient (AMB) | payer MEDICARE, MEDICAID, SELFPAY ==
[2024-07-21 11:27] VITALS: BP 129/64; PULSE 76; TEMP 36.6; O2SAT 100
--- NOTE | 2024-07-21 11:27 | MHC.OFFVISWM ---
VS Expanded 07/21/24 11:27 BP 129/64 Blood Pressure Location Rt brachial Blood Pressure Position Sitting Pulse 76 Pulse Source Pulse Oximeter Temp 97.8 F Temperature Source Temporal Artery Scan Pulse Oximetry 100 Oxygen Delivery Method Room Air Intake Visit Reasons: (OV) s/p Panniculectomy 06/23/24 Allergies oxycodone [From Percocet] Allergy (Severe, Verified 07/21/24 11:27) severe vomiting, dizziness HPI Comments Details: 48-year-old female returns to the office today in follow-up. She is approximately 1 month post panniculectomy performed on 06/1924. She did have umbilicus dehiscence although appears to remain somewhat viable. She denies any complaints. Reports proximally 15-20 mL of serous fluid from the collection bulb on a daily basis. Continues meal plan and antibiotics as directed by Dr. Warren. [facility] Medical History (Updated 07/06/24 @ 15:21 by TESSA Ludwig) Regularly irregular pulse rhythym Anxiety GERD (gastroesophageal reflux disease) Former smoker Pulmonary embolism Right leg DVT Surgical History S/P panniculectomy Hx of section Hx of breast reduction, elective Hx of gastric bypass Family History Mother Diabetes Father No problems noted. Daughter No problems noted. Son No problems noted. Son Prediabetes Social History Household Members: Family Housing: Apartment Are you a primary intensive care specialist to a significant other at home: Yes (son 15 yr old) Do you presently have visiting nurse or other home services: No 75 years or older and lives alone: No Alcohol intake: never Patient Tobacco Use Status: Former Tobacco user Tobacco use type: Cigarette Physical Exam Vital Signs: Last Vital Signs Temp 97.8 F 07/21/24 11:27 Pulse 76 07/21/24 11:27 BP 129/64 07/21/24 11:27 Pulse Ox 100 07/21/24 11:27 Oxygen Delivery Method Room Air 07/21/24 11:27 Skin Other: Transverse abdominal incision healing nicely. Umbilicus reveals almost circumferential dehiscence with granulation tissue. Base is not easily visualized despite using hemostats to spread the tissue. No evidence of infection. Assessment & Plan Assessment & Plan (1) S/P panniculectomy: Code(s): Z98.890 - Other specified postprocedural states Category: Surgical Plan: Continue abdominal binder, drain, antibiotics, meal plan (2) External incisional dehiscence: Code(s): T81.31XA - Disruption of external operation (surgical) wound, not elsewhere classified, initial encounter Category: Medical Plan: Place quarter-inch packing strip twice daily, cover with dry clean dressing. Return to clinic 1 week.
== END 2024-07-21 11:51 | disposition home or self-care (01) ==
PROVIDERS: PCP Physician Assistant Medical; Visit Provider Physician Assistant Surgical
DX: Z98.890 Other specified postprocedural states (principal); T81.31XA Disruption of external operation (surgical) wound, not elsewhere classified, initial encounter
CPT/HCPCS: 99024

== ENCOUNTER → 2024-07-21 11:00 | Outpatient (BNVA) | payer MEDICARE, MEDICAID, SELFPAY | PROVIDERS: PCP Physician Assistant Medical; Visit Provider Physician Assistant Surgical | DX: T81.31XA Disruption of external operation (surgical) wound, not elsewhere classified, initial encounter (principal); X58.XXXA Exposure to other specified factors, initial encounter; Y93.9 Activity, unspecified; Y92.9 Unspecified place or not applicable; Y99.9 Unspecified external cause status; Z98.890 Other specified postprocedural states | CPT/HCPCS: 99212 ==

== ENCOUNTER 2024-07-28 09:36 | Outpatient (AMB) | payer MEDICARE, MEDICAID, SELFPAY ==
[2024-07-28 09:48] VITALS: BP 134/94; PULSE 110; TEMP 36.6; O2SAT 98
--- NOTE | 2024-07-28 09:48 | MHC.OFFVISWM ---
VS Expanded 07/28/24 09:48 BP 134/94 H Blood Pressure Location Rt brachial Blood Pressure Position Sitting Pulse 110 H Pulse Source Pulse Oximeter Temp 97.8 F Temperature Source Temporal Artery Scan Pulse Oximetry 98 Oxygen Delivery Method Room Air Intake Visit Reasons: (OV) s/p Panniculectomy 06/23/24 Allergies oxycodone [From Percocet] Allergy (Severe, Verified 07/28/24 09:49) severe vomiting, dizziness HPI Comments Details: Patient is a 48-year-old female who returns to the office today in follow-up. She is status post panniculectomy on 06/1924. She states that yesterday she stepped on her drain accidentally and dislodged it. It is no longer holding suction. The black dot is out of the body. She states that prior to this she was having approximately 20 mL of serous fluid in the collection bulb daily. Additionally, she continues to cover her umbilicus which had completely dehisced. It has involuted and she states she did have bleeding from the area but no significant pain. [facility] Medical History (Updated 07/06/24 @ 15:21 by TESSA Ludwig) Regularly irregular pulse rhythym Anxiety GERD (gastroesophageal reflux disease) Former smoker Pulmonary embolism Right leg DVT Surgical History S/P panniculectomy Hx of section Hx of breast reduction, elective Hx of gastric bypass Family History Mother Diabetes Father No problems noted. Daughter No problems noted. Son No problems noted. Son Prediabetes Social History Household Members: Family Housing: Apartment Are you a primary client care manager to a significant other at home: Yes (son 15 yr old) Do you presently have visiting nurse or other home services: No 75 years or older and lives alone: No Alcohol intake: never Patient Tobacco Use Status: Former Tobacco user Tobacco use type: Cigarette Physical Exam Vital Signs: Last Vital Signs Temp 97.8 F 07/28/24 09:48 Pulse 110 H 07/28/24 09:48 BP 134/94 H 07/28/24 09:48 Pulse Ox 98 07/28/24 09:48 Oxygen Delivery Method Room Air 07/28/24 09:48 Skin Other: Panniculectomy incision healing nicely. The umbilicus shows granulation tissue circumferentially although the base can not be clearly seen Assessment & Plan Assessment & Plan (1) External incisional dehiscence: Code(s): T81.31XA - Disruption of external operation (surgical) wound, not elsewhere classified, initial encounter Category: Medical Plan: Granulation tissue is coming in nicely. Continue to monitor closely. Apply wick wet to dry.
== END 2024-07-28 10:43 | disposition home or self-care (01) ==
PROVIDERS: PCP Physician Assistant Medical; Visit Provider Physician Assistant Surgical
DX: T81.31XA Disruption of external operation (surgical) wound, not elsewhere classified, initial encounter (principal)
CPT/HCPCS: 99024

== ENCOUNTER → 2024-07-28 09:36 | Outpatient (BNVA) | payer MEDICARE, MEDICAID, SELFPAY | PROVIDERS: PCP Physician Assistant Medical; Visit Provider Physician Assistant Surgical | DX: T81.31XA Disruption of external operation (surgical) wound, not elsewhere classified, initial encounter (principal); X58.XXXA Exposure to other specified factors, initial encounter; Z98.890 Other specified postprocedural states | CPT/HCPCS: 99212 ==

== ENCOUNTER 2024-08-04 09:55 | Outpatient (AMB) | payer MEDICARE, MEDICAID, SELFPAY ==
[2024-08-04 10:08] VITALS: BP 124/85; PULSE 97; TEMP 36.7; O2SAT 100
--- NOTE | 2024-08-04 10:08 | A.OFFVIS_ITS ---
VS Expanded 08/04/24 10:08 BP 124/85 Blood Pressure Location Rt brachial Blood Pressure Position Sitting Pulse 97 Pulse Source Pulse Oximeter Temp 98.1 F Temperature Source Temporal Artery Scan Pulse Oximetry 100 Oxygen Delivery Method Room Air Intake Visit Reasons: (OV) s/p Panniculectomy 06/23/24 Allergies oxycodone [From Percocet] Allergy (Severe, Verified 08/04/24 10:09) severe vomiting, dizziness HPI Comments Details: Patient is a 48-year-old female who returns to the office today in follow-up. She is status post panniculectomy on 06/1924. She did have complete dehiscence of her umbilicus. This has shown slow but steady improvement with granulation. The base of the umbilicus can not be seen and I suspect this may have involuted. There is no significant drainage per patient report. She denies any significant pain. She is continuing to place slight packing within the umbilicus. She continues the meal plan and antibiotics as directed by Dr. Warren. COUNT INCLUDES THE [facility] Medical History (Updated 07/06/24 @ 15:21 by TESSA Ludwig) Regularly irregular pulse rhythym Anxiety GERD (gastroesophageal reflux disease) Former smoker Pulmonary embolism Right leg DVT Surgical History S/P panniculectomy Hx of section Hx of breast reduction, elective Hx of gastric bypass Family History Mother Diabetes Father No problems noted. Daughter No problems noted. Son No problems noted. Son Prediabetes Social History Household Members: Family Housing: Apartment Are you a primary care information associate to a significant other at home: Yes (son 15 yr old) Do you presently have visiting nurse or other home services: No 75 years or older and lives alone: No Alcohol intake: never Patient Tobacco Use Status: Former Tobacco user Tobacco use type: Cigarette Physical Exam Vital Signs: Last Vital Signs Temp 98.1 F 08/04/24 10:08 Pulse 97 08/04/24 10:08 BP 124/85 08/04/24 10:08 Pulse Ox 100 08/04/24 10:08 Oxygen Delivery Method Room Air 08/04/24 10:08 Skin Other: Transverse abdominal incision is healing nicely. The umbilicus is granulating in, this is measuring approximately 3 x 3 mm with a depth of approximately 3 mm. No evidence of infection. Assessment & Plan Assessment & Plan (1) S/P panniculectomy: Code(s): Z98.890 - Other specified postprocedural states Category: Surgical Plan: Continue abdominal binder. Continue meal plan and antibiotics as recommended by Dr. Warren. (2) External incisional dehiscence: Code(s): T81.31XA - Disruption of external operation (surgical) wound, not elsewhere classified, initial encounter Category: Medical Plan: Healing by secondary intention with granulation. Unclear whether the [place] umbilical skin has involuted, been absorbed or granulated over. She is not having any significant drainage and no evidence of abscess formation at this point. Continue to follow clinically.
== END 2024-08-04 10:36 | disposition home or self-care (01) ==
PROVIDERS: PCP Physician Assistant Medical; Visit Provider Physician Assistant Surgical
DX: Z98.890 Other specified postprocedural states (principal); T81.31XA Disruption of external operation (surgical) wound, not elsewhere classified, initial encounter
CPT/HCPCS: 99024

== ENCOUNTER → 2024-08-04 09:55 | Outpatient (BNVA) | payer MEDICARE, MEDICAID, SELFPAY | PROVIDERS: PCP Physician Assistant Medical; Visit Provider Physician Assistant Surgical | DX: Z48.817 Encounter for surgical aftercare following surgery on the skin and subcutaneous tissue (principal); T81.31XD Disruption of external operation (surgical) wound, not elsewhere classified, subsequent encounter; Z98.890 Other specified postprocedural states | CPT/HCPCS: 99212 ==

== ENCOUNTER 2024-08-07 15:31 | Inpatient (IN) | payer MEDICARE, MEDICAID, SELFPAY ==
--- NOTE | 2024-08-07 | ECG_ITS ---
Test Reason : chest pain Blood Pressure : / mmHG Vent. Rate : 082 BPM Atrial Rate : 082 BPM P-R Int : 148 ms QRS Dur : 078 ms QT Int : 392 ms P-R-T Axes : 037 061 035 degrees QTc Int : 457 ms Sinus rhythm with Blocked Premature atrial complexes Otherwise normal ECG When compared with ECG of 21-JUN-2024 12:37, No significant change was found Referred By: Generic ED Physician Electronically Signed By:HERACLIO SOL MD
--- NOTE | ~2024-08-07 | CT_ITS ---
EXAMINATION: CT ABDOMEN AND PELVIS WITHOUT CONTRAST CLINICAL INFORMATION: Abdominal swelling. Recent pediculectomy. Evaluate for seroma. COMPARISON: None available. TECHNIQUE: Multidetector volumetric imaging was performed from the superior aspect of the liver through the pubic symphysis. Sagittal and coronal reformatted images were obtained on the technologist's workstation. This CT examination was performed using dose optimization techniques as appropriate, variously including the following: *Automated exposure control *Adjustment of mA and/or kV according to patient size (this includes techniques or standardized protocols for targeted exams where dose is matched to indication/reason for exam; i.e. extremities or head) *Use of iterative reconstruction technique DLP: 405 mGy-cm FINDINGS: LUNG BASES: The visualized lung bases are unremarkable. LIVER, GALLBLADDER, AND BILIARY TREE: The liver is normal in size, shape, and attenuation. No focal hepatic lesion or biliary ductal dilatation is present. The gallbladder is unremarkable with no evidence of radiopaque gallstones, gallbladder wall thickening, or obvious pericholecystic inflammatory changes. PANCREAS: Unremarkable. SPLEEN: Unremarkable. ADRENAL GLANDS: Unremarkable. KIDNEYS AND URETERS: Tiny 1 mm nonobstructing right renal calculus. No hydronephrosis. Kidneys otherwise unremarkable. Ureters normal. BLADDER: Unremarkable. GASTROINTESTINAL TRACT: Appendix not seen. No inflammatory changes in the right lower quadrant. Colon normal. Small bowel normal. Postsurgical changes in the stomach. ABDOMINAL WALL: There is a prominent fluid collection surrounding most of the anterior aspect of the abdominal wall beginning in the upper abdomen extending almost to the level of the symphysis pubis overlying the fascia. This fluid collection measures up to 25 cm transverse 3 cm AP and 18 cm craniocaudal There is a small fat-containing umbilical hernia. LYMPH NODES: Normal. VASCULAR: Unremarkable. PELVIC VISCERA: Unremarkable. OSSEOUS STRUCTURES: No acute abnormality. Degenerative disc changes present at the T 11-[address]/CT abdomen pelvis wo IV con IMPRESSION: 1. Large fluid collection surrounding most of the anterior aspect of the abdominal wall overlying the fascia. This could reflect a postoperative seroma. 2. Tiny nonobstructing right renal calculus. 3. Postsurgical changes in the stomach. 4. Small fat-containing umbilical hernia. Fleischner guidelines were followed. Electronically signed by: Bay Broussard MD 08/07/2024 05:01 PM TRAN [facility]
--- NOTE | ~2024-08-07 | US_ITS ---
ULTRASOUND-GUIDED DRAINAGE OF ABDOMINAL WALL SEROMA. History: Abdominal wall seroma status post panniculectomy Procedure: Ultrasound-guided drainage of abdominal wall seroma. Risks and benefits and possible complications were discussed with the patient and consent form was signed. The abdomen was prepped and draped in usual sterile fashion. 1% lidocaine was used for anesthesia. A 5 Kyrgyz Yuehe needle/catheter was inserted through the skin and soft tissues of the left abdominal wall and into the fluid collection. Clear jh fluid was aspirated. A 0.035 wire was inserted through the catheter and coiled into the abdominal wall fluid collection. The tract was serially dilated. Over the wire, a 10 Kyrgyz all-purpose drainage catheter was advanced into the abdominal wall fluid collection. A total of 350 mL of jh fluid was removed. The drainage catheter was secured to the skin with a 3-0 Ethilon suture. A dry sterile dressing was applied. The drainage catheter was then connected to a DIANE bulb. The patient tolerated the procedure well. There were no immediate complications. This procedure was performed by Alex Peacock PA-C, and directly supervised by Dr. Babcock. US/US drain soft tissue w imaging Impression: Ultrasound-guided drainage of abdominal wall fluid collection. Electronically signed by: Gavin Brooks MD 08/09/2024 01:44 PM [facility]
[2024-08-07 15:45] VITALS: BP 125/97; PULSE 116; RESP 18; TEMP 37; O2SAT 99; BMI 27.3
--- NOTE | 2024-08-07 15:45 | ED.ABDPAIN ---
HPI - Abdominal Pain General Chief Complaint: Abdominal Pain Stated Complaint: abd pain, constipation? Time Seen by Provider: 08/07/24 17:26 Source: patient and RN notes reviewed Mode of arrival: ambulatory Limitations: no limitations History of Present Illness ED Provider: Shena Myers PA-C HPI narrative: This is a 48-year-old female who presents emergency department with complaints of abdominal bloating for the last 4-5 days. Patient recently had a panniculectomy performed by Dr. Warren on 06/23. Patient has been following up with her surgeon's office, last seen on August 04. Patient reports that she noticed that since this visit, she has had increased abdominal bloating, and constipation. She has been using [id number] laxatives, suppositories without any relief. She denies any fevers, chills, chest pain, shortness of breath, vomiting or diarrhea. No bloody or black stool. She called her surgeon's office today and was told to the report to the emergency room as she may have a seroma and needs to be admitted. She is urinating without difficulty. No other complaints or concerns at this time. Onset (ago): day(s) Pain Consistency: constant Location: none Severity: moderate Quality: fullness Radiation: none Migration to: no migration Exacerbating factors: nothing Relieving factors: nothing Associated symptoms: denies other symptoms Related Data Home Medications ?Medication ?Instructions ?Recorded ?Confirmed clonazepam 0.5 mg tablet 0.5 mg PO BID PRN Anxiety 03/03/23 08/08/24 levalbuterol tartrate 45 2 puff inhalation DAILY PRN COPD 03/03/23 08/08/24 mcg/actuation aerosol inhaler buspirone 7.5 mg tablet 7.5 mg PO TID 08/08/24 08/08/24 melatonin 3 mg tablet 3 - 6 mg PO BEDTIME PRN Sleep 08/08/24 08/08/24 ondansetron 4 mg disintegrating 4 mg PO Q12H PRN nausea and 08/08/24 08/08/24 tablet vomiting Previous Rx's ?Medication ?Instructions ?Recorded ciprofloxacin HCl 500 mg tablet 500 mg PO Q12H #60 tabs 08/08/24 (Cipro) docusate sodium 100 mg capsule 100 mg PO DAILY #90 caps 08/08/24 (Dulcolax Stool Softener (docusate)) Allergies Allergy/AdvReac Type Severity Reaction Status Date / Time oxycodone [From Percocet] Allergy Severe severe Verified 08/07/24 15:51 vomiting, dizziness Review of Systems Review of Systems Yes all other systems are reviewed and are negative Constitutional: Reports as per [facility] Past Medical History Medical History (Updated 08/08/24 @ 07:51 by Wilfrid Warren MD) Regularly irregular pulse rhythym Anxiety GERD (gastroesophageal reflux disease) Former smoker Pulmonary embolism Right leg DVT Surgical History S/P panniculectomy Hx of section Hx of breast reduction, elective Hx of gastric bypass Family History Family History Mother Diabetes Father No problems noted. Daughter No problems noted. Son No problems noted. Son Prediabetes Social History Social History Household Members: Family and Children Housing: Apartment Are you a primary ocular care aide to a significant other at home: Yes (son 15 yr old) Do you presently have visiting nurse or other home services: No 75 years or older and lives alone: No Alcohol intake: never Patient Tobacco Use Status: Former Tobacco user Tobacco use type: Cigarette Second Hand Smoke Exposure: Yes service: No Physical Exam ED Vital Signs: Vital Signs - 24 hr 08/07/24 18:58 08/07/24 19:58 Temperature 97.9 F 98.0 F Pulse Rate 92 100 Respiratory Rate 18 16 Blood Pressure 95/57 L 104/57 L Pulse Oximetry 98 97 Oxygen Delivery Method Room Air Room Air BMI result Body Mass Index 27.3 Const General: cooperative, comfortable and no acute distress Orientation/consciousness: patient oriented x3 Limitations: no limitations HENMT Head: Yes normal to inspection, Yes normocephalic and Yes atraumatic Ears: hearing grossly normal bilaterally General nose exam: Normal external nose present Face and sinus: Yes normal facial exam Mouth: Normal oral and palatal mucosa present, oropharynx normal and moist mucous membranes Throat: Yes posterior oropharynx normal Eyes General: appearance normal, both eyes and all related structures Eyelids: Yes eyelids normal Conjunctivae: conjunctivae normal Sclerae: sclerae normal Pupils: Equal, round and reactive pupils present EOM: EOMs intact bilaterally Neck Neck: Yes normal visual inspection, Yes full ROM and Yes no lymphadenopathy Lymphatic: no lymphadenopathy noted Chest Chest palpation & inspection: normal inspection of the chest Resp Effort & Inspection: normal respiratory effort and able to speak in complete sentences Auscultation: clear to auscultation bilaterally, no crackles, no rales, no rhonchi and no wheezes Cardio Rate: regular rate Rhythm: regular rhythm Heart sounds: S1 normal heart sound present and S2 normal heart sound present GI Other: Transverse abdominal incision noted, well healed, no wound dehiscence. Umbilicus with granulation, no evidence of infection. Abdomen is distended and firm, no guarding or tenderness. Inspection: Yes normal to inspection Skin General skin exam: no rashes or lesions noted Trauma: no lacerations or abrasions Wounds: no wounds Neuro General: patient oriented x3 and moves all extremities Cranial nerves: Yes Equal, round and reactive pupils present Extrem General: Yes normal to inspection Right upper extremity: normal to inspection Left upper extremity: normal to inspection Right lower extremity: normal to inspection Left lower extremity: normal to inspection Medical Decision Making Medical Decision Making MDM Narrative: This is a 15-cple-gwf-female, with a hx of anxiety, GERD, PE/DVT after gastric bypass 6 years ago (not on anticoagulation), who presents to the ER with complaints of abdominal pain. Pt had a recent panniculectomy by Dr. Warren on 06/23, and has had increased swelling to abdomen. Also endorsing constipation. Had drain removed [address] Gomez called in expect requested CT abd/pelvis without contrast, CBC and CMP. There is a question on whether not patient had a seroma therefore CT scan was ordered. Labs were performed, patient has a normocytic anemia with an H&H of 9.2/29.4, chemistry revealing hyperglycemia at 131, lipase within normal limits. Beta hCG negative. CT scan revealing large fluid collection surrounding most of the anterior aspect of the abdominal wall or overlying the fascia. This could reflect a possible operative seroma. There is also a tiny nonobstructing right renal calculus. Discussed findings with patient. Dr. Paige admitting patient to his service for intervention of seroma. Patient made NPO at midnight. Transfer of care initiated Differential Diagnosis Differential Diagnoses: The differential diagnosis associated with the presentation includes Seroma, abscess, postoperative changes, constipation Admission/Observation Consideration of admission/observation: Escalation of care including admission/observation considered Patient requiring admission secondary to seroma requiring surgical intervention Consult Healthcare Provider Management of the patient was discussed with: Slitting Machine Operator Dr. Willson Lab Data [facility] Lab Attestation statement: I reviewed the patient's lab results. See [facility] 08/07/24 15:54 08/07/24 15:54 Labs: Lab Results 08/07/24 Range/Units 15:54 WBC 9.7 (4.8-10.8) X10*3/uL RBC 3.39 L (4.20-5.50) X10*6/uL Hgb 9.2 L (12.0-16.0) g/dl Hct 29.4 L (37.0-47.0) % MCV 86.7 (80.0-98.0) fL MCH 27.1 (27.0-33.0) pg MCHC 31.3 (31.0-35.0) g/dl RDW 17.9 H (11.0-16.0) % Plt Count 430 H (160-400) X10*3/uL MPV 8.7 L (9.4-12.3) fL Immature Gran % (Auto) 0.3 (0.0-0.4) % Neut % (Auto) 59.4 (45-73) % Lymph % (Auto) 30.2 (20-40) % [place] % (Auto) 9.1 (2-11) % Eos % (Auto) 0.8 (0-4) % Baso % (Auto) 0.2 (0-2) % Lymph # (Auto) 2.9 (1.2-4.9) X10*3/uL [place] # (Auto) 0.9 (0.1-1.2) X10*3/uL Eos # (Auto) 0.1 (0.0-0.4) X10*3/uL Baso # (Auto) 0.0 (0.0-0.2) X10*3/uL Abs Immat Gran (auto) 0.03 (0.00-0.03) X10*3/uL Absolute Neuts (auto) 5.7 (2.0-8.3) x10*3/uL Absolute Nucleated RBC 0.000 (0.0-0.012) X10*3/uL Nucleated RBC % (auto) 0.0 (0.0-0.2) /100WBC Sodium 141 (135-145) mmol/L Potassium 3.7 (3.3-5.1) mmol/L Chloride 106 (96-108) mmol/L Carbon Dioxide 23 (22-29) mmol/L Anion Gap 16 (12-20) BUN 12 (9-16) mg/dL Creatinine 0.89 (0.5-1.4) mg/dL Estim Creat Clear Calc 67.7 Estimated GFR > 60 Random Glucose 131 H (60-115) mg/dL Calcium 9.5 (8.4-10.2) mg/dL Total Bilirubin 0.1 (0.0-1.0) mg/dL AST 30 (5-31) U/L ALT 26 (0-31) U/L Alkaline Phosphatase 108 (39-117) U/L Total Protein 7.0 (6.5-8.0) g/dL Albumin 3.9 (3.5-5.0) g/dL Lipase 31 (8-78) U/L Beta HCG, Quant < 2 mIU/mL Radiology Impression Discussion of test interpretation with radiology: I have reviewed the radiologist's reading. Radiologist Impression: EXAMINATION: CT ABDOMEN AND PELVIS WITHOUT CONTRAST CLINICAL INFORMATION: Abdominal swelling. Recent pediculectomy. Evaluate for seroma. COMPARISON: None available. TECHNIQUE: Multidetector volumetric imaging was performed from the superior aspect of the liver through the pubic symphysis. Sagittal and coronal reformatted images were obtained on the technologist's workstation. This CT examination was performed using dose optimization techniques as appropriate, variously including the following: *Automated exposure control *Adjustment of mA and/or kV according to patient size (this includes techniques or standardized protocols for targeted exams where dose is matched to indication/reason for exam; i.e. extremities or head) *Use of iterative reconstruction technique DLP: 405 mGy-cm FINDINGS: LUNG BASES: The visualized lung bases are unremarkable. LIVER, GALLBLADDER, AND BILIARY TREE: The liver is normal in size, shape, and attenuation. No focal hepatic lesion or biliary ductal dilatation is present. The gallbladder is unremarkable with no evidence of radiopaque gallstones, gallbladder wall thickening, or obvious pericholecystic inflammatory changes. PANCREAS: Unremarkable. SPLEEN: Unremarkable. ADRENAL GLANDS: Unremarkable. KIDNEYS AND URETERS: Tiny 1 mm nonobstructing right renal calculus. No hydronephrosis. Kidneys otherwise unremarkable. Ureters normal. BLADDER: Unremarkable. GASTROINTESTINAL TRACT: Appendix not seen. No inflammatory changes in the right lower quadrant. Colon normal. Small bowel normal. Postsurgical changes in the stomach. ABDOMINAL WALL: There is a prominent fluid collection surrounding most of the anterior aspect of the abdominal wall beginning in the upper abdomen extending almost to the level of the symphysis pubis overlying the fascia. This fluid collection measures up to 25 cm transverse 3 cm AP and 18 cm craniocaudal There is a small fat-containing umbilical hernia. LYMPH NODES: Normal. VASCULAR: Unremarkable. PELVIC VISCERA: Unremarkable. OSSEOUS STRUCTURES: No acute abnormality. Degenerative disc changes present at the T 11-[address]/CT abdomen pelvis wo IV con IMPRESSION: 1. Large fluid collection surrounding most of the anterior aspect of the abdominal wall overlying the fascia. This could reflect a postoperative seroma. 2. Tiny nonobstructing right renal calculus. 3. Postsurgical changes in the stomach. 4. Small fat-containing umbilical hernia. Fleischner guidelines were followed. Electronically signed by: Bay Broussard MD 08/07/2024 05:01 PM [facility] Dictated By: Bay Broussard MD Medications Administered Discontinued Medications Generic Name Dose Route Start Last Admin Trade Name Freq PRN Reason Stop Dose Admin Clonazepam 0.5 mg 08/07/24 23:59 08/08/24 00:16 Clonazepam 0.5 Mg Tablet PO 0.5 mg BEDTIME PRN Administration Anxiety Lactated Ringer's 1,000 mls @ 100 mls/hr 08/07/24 17:00 08/08/24 11:54 Lr IVCONT 100 mls/hr .Q10H [facility] Infusion Cefazolin Sodium/Dextrose 2 gm in 50 mls @ 100 mls/hr 08/07/24 18:46 08/07/24 21:09 Ancef IV Infused Q8H [facility] Infusion Acetaminophen 1,000 mg in 100 mls @ 400 mls/hr 08/07/24 18:45 08/08/24 06:52 Ofirmev IV Infused Q6H [facility] Infusion Cefazolin Sodium/Dextrose 2 gm in 50 mls @ 100 mls/hr 08/08/24 03:00 08/08/24 11:54 Ancef IV Infused Q8H [facility] Infusion Lidocaine HCl 10 ml 08/08/24 11:05 08/08/24 11:05 Lidocaine Hcl 1 % Mpf 5 Ml Vial SUBCUT 08/08/24 11:06 10 ml ONCE ONE Administration Sodium Chloride 3 ml 08/08/24 00:00 08/08/24 09:20 0.9 % Sodium Chloride Flush 3 Ml Syringe IVFLUSH Not Given QSHIFT [facility] Discharge Plan Discharge Clinical Impression: Abdominal wall seroma Qualifiers: Encounter type: initial encounter Qualified Code(s): S30.1XXA - Contusion of abdominal wall, initial encounter Patient Disposition: Admitted As Inpatient Interventions: Admission Worksheet (ED) Last Done: 08/07/24 20:34 Discharge Date/Time: 08/08/24 03:25
[2024-08-07 15:56] LABS: MANUAL DIFF FLAG NO
[2024-08-07 16:06] LABS: Basophils Percent Auto 0.2 % (0-2); Eosinophils Absolute Auto 0.1 X10*3/uL (0.0-0.4); Eosinophils Percent Auto 0.8 % (0-4); Hematocrit 29.4 % (37.0-47.0); Hemoglobin 9.2 g/dl (12.0-16.0); Imm Gran Abs Auto 0.03 X10*3/uL (0.00-0.03); Imm Gran Pct Auto 0.3 % (0.0-0.4); Lymphocytes Absolute Auto 2.9 X10*3/uL (1.2-4.9); Lymphocytes Percent Auto 30.2 % (20-40); Mean Corpuscular HGB Conc 31.3 g/dl (31.0-35.0); Mean Corpuscular Hemoglobin 27.1 pg (27.0-33.0); Mean Corpuscular Volume 86.7 fL (80.0-98.0); Mean Platelet Volume 8.7 fL (9.4-12.3); Monocytes Absolute Auto 0.9 X10*3/uL (0.1-1.2); Monocytes Percent Auto 9.1 % (2-11); Neutrophils Absolute Auto 5.7 x10*3/uL (2.0-8.3); Neutrophils Percent Auto 59.4 % (45-73); Platelet Count 430 X10*3/uL (160-400); Red Blood Count 3.39 X10*6/uL (4.20-5.50); Red Cell Distribution Width 17.9 % (11.0-16.0); White Blood Count 9.7 X10*3/uL (4.8-10.8)
[2024-08-07 16:13] LABS: Alanine Aminotransferase 26 U/L (0-31); Albumin Level 3.9 g/dL (3.5-5.0); Alkaline Phosphatase 108 U/L (39-117); Anion Gap 16 (12-20); Aspartate Amino Transferase 30 U/L (5-31); Bilirubin Total 0.1 mg/dL (0.0-1.0); Blood Urea Nitrogen 12 mg/dL (9-16); Calcium 9.5 mg/dL (8.4-10.2); Carbon Dioxide 23 mmol/L (22-29); Chloride 106 mmol/L (96-108); Creatinine Clr Calc Pharmacy 67.7; Estimated Glomerular Filt Rate > 60; Glucose Random 131 mg/dL (60-115); Lipase 31 U/L (8-78); Potassium 3.7 mmol/L (3.3-5.1); Sodium 141 mmol/L (135-145)
[2024-08-07 16:44] LABS: HCG Quantitative < 2 mIU/mL
[2024-08-07] MEDS: Lactated Ringers 1,000 ML 100 ML IVCONT (18:04)
[2024-08-07 18:58] VITALS: BP 95/57; PULSE 92; RESP 18; TEMP 36.6; O2SAT 98
[2024-08-07] MEDS: ceFAZolin Sodium/Dextrose,Iso 2 GM/50 ML PIGGYBACK IV (19:04)
[2024-08-07] MEDS: Acetaminophen 1,000 MG/100 ML PIGGYBACK 400 MG IV (19:04)
[2024-08-07 19:58] VITALS: BP 104/57; PULSE 100; RESP 16; TEMP 36.7; O2SAT 97
[2024-08-07 21:49] VITALS: BP 119/77; PULSE 98; RESP 18; TEMP 36.8; O2SAT 97
[2024-08-07 22:12] LABS: Partial Thromboplastin Time 33.8 SEC (26.0-36.8)
--- NOTE | 2024-08-08 | MHC.EDTECH ---
This pct assumed care of Patient at 2300 ,Patient c/o of chest Pain ,ekg taken and was read by Provider ,Patient was hooked up to environmental monitoring technician ,vitals Taken ,Call karimi within Pt reach .
[2024-08-08] MEDS: clonazePAM 0.5 MG TABLET PO (00:16)
[2024-08-08] MEDS: Acetaminophen 1,000 MG/100 ML PIGGYBACK 400 MG IV ×2 (00:18→06:31)
--- NOTE | 2024-08-08 00:23 | PC.NURSE ---
Took over care from LIZ Lugo, medicated per dec, pt reposition for comfort. Plan is to plan drain in am.
[2024-08-08 01:00] VITALS: BP 95/59; PULSE 77; RESP 18; TEMP 36.8; O2SAT 97
--- NOTE | 2024-08-08 02:30 | PC.NURSE ---
Medicated per mar.
[2024-08-08] MEDS: Lactated Ringers 1,000 ML 100 ML IVCONT (02:34)
[2024-08-08] MEDS: ceFAZolin Sodium/Dextrose,Iso 2 GM/50 ML PIGGYBACK IV ×2 (02:34→11:12)
--- NOTE | 2024-08-08 02:38 | PC.NURSE ---
pt reports tingling in hands and feet, neuro intact and appropriate extremely movement. pt abd distended hypactive bowel, last bowel movement was two days ago small scant amount of diarrhea.
[2024-08-08 03:12] VITALS: BP 97/56; PULSE 53; RESP 16; TEMP 36; O2SAT 95
[2024-08-08 03:27] VITALS: BMI 28.6
--- NOTE | 2024-08-08 05:39 | PC.NURSE ---
Pt came from the ED around 4am, , alert and oriented, verbalized feeling tired and sleepy, NPO instructed and understood, IVF cont'd.
--- NOTE | 2024-08-08 07:46 | P.HPGS_ITS ---
History of Present Illness History of Present Illness Date of Service: 08/08/24 Chief complaint: Seroma Narrative: Ashley Boggs is a 48 year old female who is s/p panniculectomy. Unfortunately she has not been very compliant with her treatment. Initially she did not follow the proper nutritional plan I recommended and was consuming salty foods that let to edema and eventual separation of the umbilicus. This has now healed but recently she dislodged the drain which came out and additionally she went to work althouh we had recommended home rest. As a result she has noticed a significant increase of the abdominal girth and discomfort over the last 2-3 days suggestive of seroma. Denies any fever or erythema. Review of Systems Constitutional: Constitutional: Reports as per HPI Gastrointestinal: Gastrointestinal: Reports other (increased abdominal girth) [facility] Past Medical History Medical History (Updated 08/08/24 @ 07:51 by Wilfrid Warren MD) Regularly irregular pulse rhythym Anxiety GERD (gastroesophageal reflux disease) Former smoker Pulmonary embolism Right leg DVT Family History Family History Mother Diabetes Father No problems noted. Daughter No problems noted. Son No problems noted. Son Prediabetes Surgical History Surgical History S/P panniculectomy Hx of section Hx of breast reduction, elective Hx of gastric bypass Social History Social History Household Members: Family and Children Housing: Apartment Are you a primary senior care manager to a significant other at home: Yes (son 15 yr old) Do you presently have visiting nurse or other home services: No Alcohol intake: never Patient Tobacco Use Status: Former Tobacco user Tobacco use type: Cigarette Smoked in Last 30 Days: No Patient Interested in Nicotine Replacement: No Patient Given Instructions on How to Stop Smoking: No Second Hand Smoke Exposure: Yes Use of substances other than those prescribed or required for medical reasons: No Currently Displaying Signs/Symptoms of Drug Intoxication Withdrawal: No Any prior treatment program specific to substance use: No Have you been hit, kicked, punched, or otherwise hurt by someone within the past year? If so, by whom?: No Do you feel safe in your current relationship?: Yes Is there a partner from a previous relationship who is making you feel unsafe now?: No Are you made to feel afraid or neglected: No Advance Directives: No Advance Directives Information Provided: Yes Do you have a plan to hurt others: No Plan Recently lost weight without trying: No Eating poorly because of decreased appetite: No Nutrition Risks: No Nutritional Risk Patient : No : No Poor oral hygiene: No Meds Allergies Allergy/AdvReac Type Severity Reaction Status Date / Time oxycodone [From Percocet] Allergy Severe severe Verified 08/07/24 15:51 vomiting, dizziness Active Medications: Current Medications Clonazepam (Clonazepam 0.5 Mg Tablet) 0.5 mg PO BEDTIME PRN PRN Reason: Anxiety Last Admin: 08/08/24 00:16 Dose: 0.5 mg Lactated Ringer's (Lr) 1,000 mls @ 100 mls/hr IVCONT .Q10H [facility] Last Admin: 08/08/24 02:34 Dose: 100 mls/hr Acetaminophen (Ofirmev) 1,000 mg in 100 mls @ 400 mls/hr IV Q6H [facility] Last Infusion: 08/08/24 06:52 Dose: Infused Cefazolin Sodium/Dextrose (Ancef) 2 gm in 50 mls @ 100 mls/hr IV Q8H [facility] Last Infusion: 08/08/24 03:19 Dose: Infused Sodium Chloride (0.9 % Sodium Chloride Flush 3 Ml Syringe) 3 ml IVFLUSH QSHIFT [facility] Last Admin: 08/08/24 02:16 Dose: Not Given Home Medications ?Medication ?Instructions ?Recorded ?Confirmed ?Last Taken ?Type clonazepam 0.5 mg tablet 0.5 mg PO TID PRN Anxiety 03/03/23 06/14/24 Unknown History diclofenac sodium 75 mg 75 mg PO BID 03/03/23 06/14/24 Unknown History tablet,delayed release doxepin 50 mg capsule 50 mg PO BEDTIME 03/03/23 06/14/24 Unknown History famotidine 40 mg tablet 40 mg PO DAILY 03/03/23 06/14/24 Unknown History gabapentin 300 mg capsule 300 mg PO DAILY 03/03/23 06/14/24 Unknown History levalbuterol tartrate 45 0 mcg inhalation DAILY 03/03/23 06/14/24 Unknown History mcg/actuation aerosol inhaler Physical Exam Vital Signs: Vital Signs: Last Vital Signs Temp 96.8 F 08/08/24 03:12 Pulse 53 08/08/24 03:12 Resp 16 08/08/24 03:12 BP 97/56 L 08/08/24 03:12 Pulse Ox 95 08/08/24 03:12 O2 Del Method Room Air 08/08/24 03:12 BMI result Body Mass Index 28.6 GI: Inspection: Yes incision (well healed) and Yes other (umbilical area completely closed) Palpation (GI): Soft to palpation (fluid palpated under the skin throughout the area of panniculectomy) Results Results Labs: Short CBC 08/07/24 Range/Units 15:54 WBC 9.7 (4.8-10.8) X10*3/uL Hgb 9.2 L (12.0-16.0) g/dl Hct 29.4 L (37.0-47.0) % Plt Count 430 H (160-400) X10*3/uL BMP 08/07/24 15:54 Sodium 141 Potassium 3.7 Chloride 106 Carbon Dioxide 23 BUN 12 Creatinine 0.89 Calcium 9.5 Liver Function 08/07/24 Range/Units 15:54 Total Bilirubin 0.1 (0.0-1.0) mg/dL AST 30 (5-31) U/L ALT 26 (0-31) U/L Alkaline Phosphatase 108 (39-117) U/L Albumin 3.9 (3.5-5.0) g/dL Abdomen CT scan report/results: report reviewed and image reviewed Assessment and Plan (1) Seroma of skin or subcutaneous tissue after non-dermatologic procedure: Status: Acute Plan IR was consulted for a drain placement. The patient could be discharged if she tolerates the procedure well. IV antibiotics Plan was discussed with the patient and her nurse Total time managing care of this patient today: 30 minutes. Quality Stroke Does the patient have a stroke diagnosis?: No VTE Prior VTE?: No VTE Risk Level:: Surgical - low VTE Device Contraindication: N/A - Device Ordered VTE Drug Contraindication: Treatment Not Indicated Procedures Date of Service Date of Service: 08/08/24
[2024-08-08 07:51] VITALS: BP 106/58; PULSE 87; RESP 18; TEMP 36.8; O2SAT 98
--- NOTE | 2024-08-08 09:15 | PHA.MEDREC ---
Addendum entered by Joann Stroud [facility] 08/08/24 11:29: Reviewed by [facility]. Addendum entered by Ben Pozo 08/08/24 11:11: Spoke with patient and confirmed she is still taking Busprione 7.5mg 1 tab TID, Melatonin 3mg tab 1-2 tab as needed for sleep and I confirmed the patient is now taking her Clonazepam 0.5mg tab BID. Original Note: Pharmacy Consult ? Medication Reconciliation Pharmacy has completed the medication reconciliation. Confirmed medications with patient. Patient confirmed she is taking Dulcolax tablets and states in the last 2 days she has taken 10 of those tablets and has not gotten any relief from using them. She states she is not taking the Cephalexin 500mg tabs anymore even tho it was filled 07/13 for 30 days or the Diclofenac Sodium 75mg tab which was filled 07/28 for 30 days and states she has not taken them in about a month. She confirmed she stopped the Doxepin 50mg tab 6 days ago on her own due to her feeling like she does not need to take it as much. She also stated she has Gabapentin 300mg tabs at home but has not taken them since 07/23 due to a surgery she had and she has not gotten a chance to see her Dr to be put back on it. She confirmed she has not taken any medications in about 2 days she thinks.
[2024-08-08] MEDS: Lidocaine HCl 1 % MPF 5 ML VIAL 10 ML SUBCUT (11:05)
[2024-08-08 11:44] VITALS: BP 121/73; PULSE 86; RESP 17; TEMP 36.6; O2SAT 96
--- NOTE | 2024-08-08 12:49 | MHC.CM.PN ---
Patient s/p Paniculectomy She is independent with all functional mobility. She lives with her spouse. She is discharged to home today self care. Her spouse is providing transportation home.
--- NOTE | 2024-09-07 13:39 | P.DS_ITS ---
DS: Providers Provider Date of Service: 08/08/24 Date of admission: 08/07/24 20:06 Primary care physician: TESSA Ludwig DS: Diagnosis Discharge Diagnosis (1) Seroma of skin or subcutaneous tissue after non-dermatologic procedure: Status: Acute DS: Summary Hospital Course Hospital Course: Ashley Boggs is a 48 year old female who is s/p panniculectomy. Unfortunately she has not been very compliant with her treatment. Initially she did not follow the proper nutritional plan I recommended and was consuming salty foods that let to edema and eventual separation of the umbilicus. This has now healed but recently she dislodged the drain which came out and additionally she went to work althouh we had recommended home rest. As a result she has noticed a significant increase of the abdominal girth and discomfort over the last 2-3 days suggestive of seroma. She was admitted to the hospital, IR was consulted for pigtail drain placement. This was performed on 08/08 24 and she was discharged home that day. Time Attestation Total time managing care of this patient today: 20 mintues. Discharge Coordination Time (in mins): 25 Quality: Safe Use of Opioids Does Pt have an Active Cancer Diagnosis on the Problem List?: No Quality: Stroke Does the patient have a stroke diagnosis?: No Physical Exam Vital Signs: Vital Signs: Last Vital Signs Temp 97.9 F 08/08/24 11:44 Pulse 86 08/08/24 11:44 Resp 17 08/08/24 11:44 BP 121/73 08/08/24 11:44 Pulse Ox 96 08/08/24 11:44 O2 Del Method Room Air 08/08/24 11:44 BMI result Body Mass Index 28.6 DS: Data Data Completed and Pending Completed studies during hospitalization [Text1]: Procedures Drainage of Abdominal Wall with Drainage Device, Percutaneous Approach (08/07/24) Discharge Plan Discharge Anticipated Discharge Date/Time: 08/08/24 12:08 Patient Disposition: Home, Self-Care Discharge Diagnosis: Abdominal wall seroma Referrals: Levi Rivera PA [Primary Care Provider] - 1 Week Discharge Medications: Continued docusate sodium [Dulcolax Stool Softener (dss)] 100 mg capsule 100 mg PO DAILY Qty: 90 0RF ciprofloxacin HCl [Cipro] 500 mg tablet 500 mg PO Q12H Qty: 60 2RF melatonin 3 mg tablet 3 - 6 mg PO BEDTIME PRN (Reason: Sleep) buspirone 7.5 mg tablet 7.5 mg PO TID ondansetron 4 mg tablet,disintegrating 4 mg PO Q12H PRN (Reason: nausea and vomiting) Rx Instructions: Only take one every 12 hours as needed if you have nausea clonazepam 0.5 mg tablet 0.5 mg PO BID PRN (Reason: Anxiety) levalbuterol tartrate 45 mcg/actuation HFA aerosol inhaler 2 puff inhalation DAILY PRN (Reason: COPD) Discharge Orders: Discharge Order (Routine); Ordered 08/08/24 Ordered By: Wilfrid Warren Activity on Discharge: Rest with bed elevated Stand Alone Forms: Patient Portal Discharge page Print Language: Estonian Care Plan Goals: Home rest to help prevent seroma recurrence Health Concerns: Seroma recurrence Plan of Treatment: 1) Continue antibiotics as prescribed 2) Colace for the constipation 3) No physical activities and work 4) Continue f/up appointments at my office as previously scheduled 5) Measure drain output daily 6) Follow the specific nutritional plan that we discussed Assessment: She feels better after 350ml of fluids were drained Discharge Date/Time: 08/08/24 13:13
== END 2024-08-08 13:13 | disposition home or self-care (01) | DRG 921 ==
LOC: HO.ED 19:16 → HO.EDOVER 20:08 → HO.S3 08-08 01:23
PROVIDERS: Physician Assistant Medical; Admitting Provider Surgery; Emergency Provider Emergency Medicine; PCP Physician Assistant Surgical; Visit Provider Surgery
DX: L76.33 Postprocedural seroma of skin and subcutaneous tissue following a dermatologic procedure (principal); Z87.891 Personal history of nicotine dependence; Z98.84 Bariatric surgery status; Z91.199 Patient's noncompliance with other medical treatment and regimen due to unspecified reason; Z79.899 Other long term (current) drug therapy
CPT/HCPCS: 10030; 36415; 74176; 80053; 83690; 84702; 85025; 85610; 85730; 93005; 99212; 99285; J0131; J0690; J2003; J7120; Q4186

== ENCOUNTER 2024-08-07 20:06 | Outpatient (BNV) | payer MEDICARE, MEDICAID, SELFPAY | END 2024-08-08 09:30 | PROVIDERS: Admitting Provider Surgery; Emergency Provider Emergency Medicine; PCP Physician Assistant Surgical; Visit Provider Physician Assistant Surgical | DX: L76.34 Postprocedural seroma of skin and subcutaneous tissue following other procedure (principal) | CPT/HCPCS: 10030 ==

== ENCOUNTER 2024-08-07 20:06 | Outpatient (BNV) | payer MEDICARE, MEDICAID, SELFPAY | END 2024-08-07 23:42 | PROVIDERS: Admitting Provider Surgery; Emergency Provider Emergency Medicine; PCP Physician Assistant Surgical; Visit Provider Internal Medicine Cardiovascular Disease | DX: R07.9 Chest pain, unspecified (principal) | CPT/HCPCS: 93010 ==

== ENCOUNTER → 2024-08-07 20:06 | Outpatient (BNV) | payer MEDICARE, MEDICAID, SELFPAY | PROVIDERS: Admitting Provider Surgery; Emergency Provider Emergency Medicine; PCP Physician Assistant Surgical; Visit Provider Surgery | DX: L76.34 Postprocedural seroma of skin and subcutaneous tissue following other procedure (principal) | CPT/HCPCS: 99222; 99238 ==

== ENCOUNTER 2024-08-11 09:36 | Outpatient (AMB) | payer MEDICARE, MEDICAID, SELFPAY ==
[2024-08-11 10:00] VITALS: BP 130/81; PULSE 109; TEMP 37; O2SAT 98
--- NOTE | 2024-08-11 10:00 | A.OFFVIS_ITS ---
VS Expanded 08/11/24 10:00 BP 130/81 Blood Pressure Location Rt brachial Blood Pressure Position Sitting Pulse 109 H Pulse Source Pulse Oximeter Temp 98.6 F Temperature Source Temporal Artery Scan Pulse Oximetry 98 Oxygen Delivery Method Room Air Intake Visit Reasons: (OV) s/p Panniculectomy 06/23/24 Allergies oxycodone [From Percocet] Allergy (Severe, Verified 08/11/24 10:00) severe vomiting, dizziness HPI Comments Details: 48-year-old female returns to the office today status post panniculectomy. She did have her drain dislodged accidentally at home prior to it being ready to be removed. As a result, she developed a seroma. She was admitted to the hospital with abdominal distention and subsequent IR placement of drain. She states that she had a proximally 120 mL 2 days ago and 80 mL yesterday. She continues meal plan and antibiotics as recommended by Dr. Warren. She offers no complaints. Her umbilicus has healed nicely. [facility] Medical History (Updated 08/11/24 @ 10:08 by Sonia Long CMA) Regularly irregular pulse rhythym Anxiety GERD (gastroesophageal reflux disease) Former smoker Pulmonary embolism Right leg DVT Surgical History S/P panniculectomy Hx of section Hx of breast reduction, elective Hx of gastric bypass Family History Mother Diabetes Father No problems noted. Daughter No problems noted. Son No problems noted. Son Prediabetes Social History Household Members: Family and Children Housing: Apartment Are you a primary progressive care manager to a significant other at home: Yes (son 15 yr old) Do you presently have visiting nurse or other home services: No 75 years or older and lives alone: No Alcohol intake: never Patient Tobacco Use Status: Former Tobacco user Tobacco use type: Cigarette Second Hand Smoke Exposure: Yes service: No Physical Exam Vital Signs: Last Vital Signs Temp 98.6 F 08/11/24 10:00 Pulse 109 H 08/11/24 10:00 BP 130/81 08/11/24 10:00 Pulse Ox 98 08/11/24 10:00 Oxygen Delivery Method Room Air 11/07/24 10:00 Skin Other: Umbilicus remained scabbed over. Transverse abdominal incision has healed nicely. The drain is in place with a proximally 35 mL serous fluid within the collection bulb Assessment & Plan Assessment & Plan (1) Seroma of skin or subcutaneous tissue after non-dermatologic procedure: Code(s): L76.34 - Postprocedural seroma of skin and subcutaneous tissue following other procedure Category: Medical Plan: Patient was educated on dressing changes and making sure there was no tension on the drain. Continue to monitor output. Return to clinic 1 week.
== END 2024-08-11 10:39 | disposition home or self-care (01) ==
LOC: HO.HBS 09:36
PROVIDERS: PCP Physician Assistant Surgical; Visit Provider Physician Assistant Surgical
DX: L76.34 Postprocedural seroma of skin and subcutaneous tissue following other procedure (principal)
CPT/HCPCS: 99024

== ENCOUNTER → 2024-08-11 09:36 | Outpatient (BNVA) | payer MEDICARE, MEDICAID, SELFPAY | PROVIDERS: PCP Physician Assistant Surgical; Visit Provider Physician Assistant Surgical | DX: L76.34 Postprocedural seroma of skin and subcutaneous tissue following other procedure (principal); Z98.890 Other specified postprocedural states | CPT/HCPCS: 99212 ==

== ENCOUNTER 2024-08-12 08:25 | Outpatient (AMB) | payer MEDICARE, MEDICAID, SELFPAY ==
[2024-08-12 08:34] VITALS: BP 131/94; PULSE 104; TEMP 36.3; O2SAT 97
--- NOTE | 2024-08-12 08:34 | MHC.OFFVISWM ---
VS Expanded 08/12/24 08:34 BP 131/94 H Blood Pressure Location Rt brachial Blood Pressure Position Sitting Pulse 104 H Temp 97.4 F Temperature Source Temporal Artery Scan Pulse Oximetry 97 Oxygen Delivery Method Room Air Intake Visit Reasons: (OV) s/p Panniculectomy 06/23/24 Allergies oxycodone [From Percocet] Allergy (Severe, Verified 08/11/24 10:00) severe vomiting, dizziness HPI Comments Details: 48-year-old female status post panniculectomy on 06/21/2024. She was seen in the office yesterday although reports increased abdominal distention and inability to sleep due to this over the last 24 hours. She has noted approximately 80 mL of serous fluid from the collection bulb. Given the significant increase in distention, we will repeat CT scan this morning. She continues antibiotics and meal plan per Dr. Warren. [facility] Medical History (Updated 08/12/24 @ 00:03 by Background Danickolas) Regularly irregular pulse rhythym Anxiety GERD (gastroesophageal reflux disease) Former smoker Pulmonary embolism Right leg DVT Surgical History (Updated 08/12/24 @ 00:03 by Background Danickolas) S/P panniculectomy Hx of section Hx of breast reduction, elective Hx of gastric bypass Family History Mother Diabetes Father No problems noted. Daughter No problems noted. Son No problems noted. Son Prediabetes Social History Household Members: Family and Children Housing: Apartment Are you a primary manager home healthcare to a significant other at home: Yes (son 15 yr old) Do you presently have visiting nurse or other home services: No 75 years or older and lives alone: No Alcohol intake: never Patient Tobacco Use Status: Former Tobacco user Tobacco use type: Cigarette Second Hand Smoke Exposure: Yes service: No Physical Exam Vital Signs: Last Vital Signs Temp 97.4 F 08/12/24 08:34 Pulse 104 H 08/12/24 08:34 BP 131/94 H 08/12/24 08:34 Pulse Ox 97 08/12/24 08:34 Oxygen Delivery Method Room Air 08/12/24 08:34 Skin Other: Firm this and fluctuance noted underneath the midline abdomen. Approximately 25 mL serous fluid within the collection bulb. Assessment & Plan Assessment & Plan (1) Seroma of skin or subcutaneous tissue after non-dermatologic procedure: Code(s): L76.34 - Postprocedural seroma of skin and subcutaneous tissue following other procedure Category: Medical Plan: Stat CT scan for evaluation of the abdominal seroma, may need IR intervention for manipulation of the drain. Orders: Orders CT abdomen pelvis wo IV con Today L76.34 - Postprocedural seroma of skin and subcutaneous tissue following other procedure, S30.1XXA - Contusion of abdominal wall, initial encounter, Z98.890 - Other specified postprocedural states
== END 2024-08-12 08:48 | disposition home or self-care (01) ==
LOC: HO.HBS 08:25
PROVIDERS: PCP Physician Assistant Surgical; Visit Provider Physician Assistant Surgical
DX: L76.34 Postprocedural seroma of skin and subcutaneous tissue following other procedure (principal)
CPT/HCPCS: 99024

== ENCOUNTER 2024-08-12 09:28 | Outpatient (REF) | payer MEDICARE, SELFPAY ==
--- NOTE | ~2024-08-12 | CT_ITS ---
EXAMINATION: CT ABDOMEN AND PELVIS WITHOUT CONTRAST CLINICAL INFORMATION: Postprocedural seroma of the skin and subcutaneous tissues. Recent panniculectomy. COMPARISON: CT abdomen/pelvis dated 08/07/2024 and ultrasound-guided soft tissue drain placement dated 08/07/2024. TECHNIQUE: Multidetector volumetric imaging was performed from the superior aspect of the liver through the pubic symphysis. Sagittal and coronal reformatted images were obtained on the technologist's workstation. This CT examination was performed using dose optimization techniques as appropriate, variously including the following: *Automated exposure control *Adjustment of mA and/or kV according to patient size (this includes techniques or standardized protocols for targeted exams where dose is matched to indication/reason for exam; i.e. extremities or head) *Use of iterative reconstruction technique DLP: 393 mGy-cm FINDINGS: LUNG BASES: The visualized lung bases are unremarkable. LIVER, GALLBLADDER, AND BILIARY TREE: The liver is normal in size, shape, and attenuation. No focal hepatic lesion or biliary ductal dilatation is present. The gallbladder is unremarkable with no evidence of radiopaque gallstones, gallbladder wall thickening, or obvious pericholecystic inflammatory changes. PANCREAS: Unremarkable. SPLEEN: Unremarkable. ADRENAL GLANDS: Unremarkable. KIDNEYS AND URETERS: The kidneys are normal in size, shape, and attenuation. Redemonstration of right-sided renal stones measuring up to 0.2 cm within the lower pole, unchanged. No ureteral stone. No hydronephrosis or hydroureter. BLADDER: Nondistended. GASTROINTESTINAL TRACT: Postsurgical change consistent with sleeve gastrectomy. Unremarkable gastrojejunal and jejunojejunal anastomoses. No small or large bowel obstruction. No bowel wall thickening or inflammatory change. Moderate stool burden throughout the colon. Unremarkable appendix. PERITONEAL CAVITY: No intra-abdominal free air or free fluid. ABDOMINAL WALL: Redemonstration of postsurgical change along the lower anterior abdominal wall. Interval placement of a subcutaneous surgical drain from the left side. Complete resolution of the previously seen soft tissue fluid collection along the anterior lower pelvic wall. No persistent fluid collection. No evidence of abscess formation. No soft tissue mass. LYMPH NODES: No significant lymphadenopathy. Evaluation somewhat limited without contrast. VASCULAR: Unremarkable. PELVIC VISCERA: The uterus and adnexa are unremarkable. OSSEOUS STRUCTURES: Unremarkable. CT/CT abdomen pelvis wo IV con IMPRESSION: 1. Redemonstration of postsurgical change along the lower anterior abdominal wall. Interval placement of a subcutaneous surgical drain from the left side. Complete resolution of the previously seen soft tissue fluid collection along the anterior lower pelvic wall. No persistent fluid collection. No evidence of abscess formation. No soft tissue mass. 2. Additional chronic findings are unchanged. Fleischner guidelines were followed. Electronically signed by: Jame Mitchell MD 08/12/2024 11:37 AM TRAN [facility]
== END 2024-08-12 09:29 | disposition home or self-care (01) ==
LOC: HO.CT 09:28
PROVIDERS: Visit Provider Physician Assistant Surgical
DX: L76.34 Postprocedural seroma of skin and subcutaneous tissue following other procedure (principal); S30.1XXA Contusion of abdominal wall, initial encounter; Z98.890 Other specified postprocedural states
CPT/HCPCS: 74176; 99212

== ENCOUNTER 2024-08-24 12:49 | Outpatient (AMB) | payer MEDICARE, SELFPAY ==
[2024-08-24 13:12] VITALS: BP 120/78; PULSE 97; TEMP 37.5; O2SAT 97
--- NOTE | 2024-08-24 13:12 | A.OFFVIS_ITS ---
VS Expanded 08/24/24 13:12 BP 120/78 Blood Pressure Location Rt brachial Blood Pressure Position Sitting Pulse 97 Pulse Source Pulse Oximeter Temp 99.5 F Temperature Source Temporal Artery Scan Pulse Oximetry 97 Oxygen Delivery Method Room Air Intake Visit Reasons: (OV) s/p Panniculectomy 06/23/24 -see note Allergies oxycodone [From Percocet] Allergy (Severe, Verified 08/24/24 13:14) severe vomiting, dizziness HPI Comments Details: Patient is a pleasant 48-year-old female who returns to the office today in follow-up. She is status post panniculectomy on 06/1924. She did have a drain that she had dislodged accidentally with reaccumulation of fluid requiring IR placement of a pigtail catheter. She reports 20th 30 mL serous fluid on a daily basis. She denies any pain. She denies any abdominal distention. [facility] Medical History (Updated 08/12/24 @ 00:03 by Dante Daanthonyon) Regularly irregular pulse rhythym Anxiety GERD (gastroesophageal reflux disease) Former smoker Pulmonary embolism Right leg DVT Surgical History S/P panniculectomy Hx of section Hx of breast reduction, elective Hx of gastric bypass Family History Mother Diabetes Father No problems noted. Daughter No problems noted. Son No problems noted. Son Prediabetes Social History Household Members: Family and Children Housing: Apartment Are you a primary home care coordinator to a significant other at home: Yes (son 15 yr old) Do you presently have visiting nurse or other home services: No 75 years or older and lives alone: No Alcohol intake: never Patient Tobacco Use Status: Former Tobacco user Tobacco use type: Cigarette Second Hand Smoke Exposure: Yes service: No Physical Exam Vital Signs: Last Vital Signs Temp 99.5 F 08/24/24 13:12 Pulse 97 08/24/24 13:12 BP 120/78 08/24/24 13:12 Pulse Ox 97 08/24/24 13:12 Oxygen Delivery Method Room Air 08/24/24 13:12 GI Other: Incision is healed nicely. Umbilicus has healed as well. There continues to be approximately 22 mL of serous fluid within the collection bulb. Assessment & Plan Assessment & Plan (1) Seroma of skin or subcutaneous tissue after non-dermatologic procedure: Code(s): L76.34 - Postprocedural seroma of skin and subcutaneous tissue following other procedure Category: Medical Plan: Continue monitoring drain output. Continue antibiotics. Continue meal plan. Return to the office in 1 week.
== END 2024-08-24 13:57 | disposition home or self-care (01) ==
PROVIDERS: PCP Physician Assistant Surgical; Visit Provider Physician Assistant Surgical
DX: L76.34 Postprocedural seroma of skin and subcutaneous tissue following other procedure (principal)
CPT/HCPCS: 99024

== ENCOUNTER → 2024-08-24 12:49 | Outpatient (BNVA) | payer MEDICARE, SELFPAY | PROVIDERS: PCP Physician Assistant Surgical; Visit Provider Physician Assistant Surgical | DX: L76.34 Postprocedural seroma of skin and subcutaneous tissue following other procedure (principal) | CPT/HCPCS: 99212 ==

== ENCOUNTER 2024-09-19 11:54 | Inpatient (IN) | payer MEDICARE, MEDICAID, SELFPAY ==
[2024-09-19] VITALS (9 sets, daily range): BP systolic 106–145; BP diastolic 65–84; PULSE 91–104; RESP 16–25; TEMP 36.2–37.3; O2SAT 99–100; BMI 26.4
--- NOTE | ~2024-09-19 | CT_ITS ---
EXAMINATION: CT ABDOMEN AND PELVIS WITHOUT CONTRAST CLINICAL INFORMATION: abdominal wall fluid drainage c/o fullness, s/p surgical procedure COMPARISON: CT abdomen/pelvis 09/19/2024 TECHNIQUE: Multidetector volumetric imaging was performed from the superior aspect of the liver through the pubic symphysis. Sagittal and coronal reformatted images were obtained on the technologist's workstation. This CT examination was performed using dose optimization techniques as appropriate, variously including the following: *Automated exposure control *Adjustment of mA and/or kV according to patient size (this includes techniques or standardized protocols for targeted exams where dose is matched to indication/reason for exam; i.e. extremities or head) *Use of iterative reconstruction technique DLP: 919 mGy-cm FINDINGS: LUNG BASES: The visualized lung bases are unremarkable. LIVER, GALLBLADDER, AND BILIARY TREE: The liver is normal in size, shape, and attenuation. No focal hepatic lesion or biliary ductal dilatation is present. The gallbladder is unremarkable with no evidence of radiopaque gallstones, gallbladder wall thickening, or obvious pericholecystic inflammatory changes. PANCREAS: Unremarkable. SPLEEN: Unremarkable. ADRENAL GLANDS: Unremarkable. KIDNEYS AND URETERS: There is a nonobstructing right renal interpole 0.2 cm calculus. The kidneys are normal in size, shape, and attenuation. No hydronephrosis, hydroureter, or left-sided calculi seen. No perinephric stranding. BLADDER: Unremarkable. GASTROINTESTINAL TRACT: William-en-Y gastric bypass anatomy with intact anastomotic sutures. The small and large bowel are nondilated. Normal appendix. ABDOMINAL WALL: There is a 7 x 0.5 x 11 cm collection along the anterior abdominal wall adjacent to the abdominal wall musculature without evidence for peritoneal extension, improved from 1.5 cm in AP dimension on 09/19/2024. Status post repositioning of the drainage catheter so that the pigtail is positioned across midline within the inferior aspect of the collection. No significant hernia is appreciated. LYMPH NODES: Normal. VASCULAR: Unremarkable. PELVIC VISCERA: Normal CT appearance of the uterus. Right ovarian 2.9 cm cystic lesion. Findings are overwhelmingly likely to represent a benign functional cyst and no followup imaging recommended. OSSEOUS STRUCTURES: Unremarkable. CT/CT abdomen pelvis wo IV con IMPRESSION: Anterior abdominal wall fluid collection is smaller status post repositioning of the drainage pigtail catheter. William-en-Y gastric bypass anatomy. No acute abnormality in the abdomen or pelvis. Fleischner guidelines were followed. Electronically signed by: Dina Lam DO 09/21/2024 01:06 PM TRAN RAMÍREZ
--- NOTE | ~2024-09-19 | CT_ITS ---
EXAMINATION: CT ABDOMEN AND PELVIS WITHOUT CONTRAST CLINICAL INFORMATION: Abdominal distention. History of seroma. COMPARISON: CT abdomen and pelvis August 12, 2024 TECHNIQUE: Multidetector volumetric imaging was performed from the superior aspect of the liver through the pubic symphysis. Sagittal and coronal reformatted images were obtained on the technologist's workstation. This CT examination was performed using dose optimization techniques as appropriate, variously including the following: *Automated exposure control *Adjustment of mA and/or kV according to patient size (this includes techniques or standardized protocols for targeted exams where dose is matched to indication/reason for exam; i.e. extremities or head) *Use of iterative reconstruction technique DLP: 550 mGy-cm FINDINGS: LUNG BASES: The visualized lung bases are unremarkable. LIVER, GALLBLADDER, AND BILIARY TREE: The liver is normal in size, shape, and attenuation. No focal hepatic lesion or biliary ductal dilatation is present. The gallbladder is unremarkable with no evidence of radiopaque gallstones, gallbladder wall thickening, or obvious pericholecystic inflammatory changes. PANCREAS: Unremarkable. SPLEEN: Unremarkable. ADRENAL GLANDS: Unremarkable. KIDNEYS AND URETERS: There is a 1 mm nonobstructive stone in the mid lower pole of the right kidney. No ureteral calculi. No hydronephrosis. No renal mass. BLADDER: Unremarkable. GASTROINTESTINAL TRACT: Status post gastric surgery, gastric bypass. There is no acute abnormality of the bowel. No bowel obstruction. No bowel wall thickening or edema. Moderate volume of stool in the colon. The appendix is not visualized. ABDOMINAL WALL: Fluid collection in the anterior abdominal wall just superficial to the abdominal wall musculature at the midline is a drainage catheter in place at the margin of the collection. This collection measures approximately 11 cm superior-inferior by 7 cm transverse by 1.5 cm AP. The volume of fluid has increased since CAT scan August 12, 2024. LYMPH NODES: Normal. VASCULAR: Unremarkable. PELVIC VISCERA: The uterus is anteverted. Hypodensity in the adnexa bilaterally related to the ovaries. These measure 2.5 cm bilaterally likely due to ovarian follicle. No further follow-up recommended. OSSEOUS STRUCTURES: Unremarkable. CT/CT abdomen pelvis wo IV con IMPRESSION: 1. Fluid collection in the anterior abdominal wall just superficial to the abdominal wall musculature at the midline. There is a drainage catheter in place at the margin of the collection. The volume of fluid has increased since CAT scan August 12, 2024. 2. Status post gastric bypass. No acute abnormality of the bowel. 3. Nonobstructive right renal calculus. Fleischner guidelines were followed. Electronically signed by: Elan Byrne MD 09/19/2024 03:50 PM EST RP
--- NOTE | ~2024-09-19 | US_ITS ---
Ultrasound-guided drain placement History: 48-year-old female status post percutaneous drainage of an abdominal wall seroma 1 month ago. The drain is partially and imaging. Patient presents for replacement of the drain. Procedure: Ultrasound-guided abdominal wall drainage catheter exchange. Risks and benefits and possible complications were discussed with the patient and consent form was signed. Preliminary ultrasound imaging demonstrated the distal end of the drainage catheter within the abdominal wall seroma.The abdomen was prepped and draped in usual sterile fashion. 1% lidocaine was used for anesthesia. The catheter was cut, and a 0.035 stiff Glidewire was inserted through the catheter and advanced into the wall fluid collection. The drainage catheter was removed over the wire. [id number], a new 10 Prydeinig drainage catheter was advanced the wire and positioned with the tip of the catheter located centrally in the abdominal wall fluid collection, under ultrasound guidance. The wire was removed. A total of 50 mL of nonclotting blood tinged fluid was then aspirated from the drainage catheter. Postprocedure imaging demonstrated near decompression of the abdominal wall fluid collection. The drainage catheter was then secured to the skin with a 3-0 Ethilon suture. A dressing was applied. The catheter was then connected to a DIANE bulb. The patient tolerated the procedure well. This procedure was performed by Alex Peacock PA-C, and directly supervised by Dr. Gómez. US/US drain soft tissue w imaging Impression: Ultrasound-guided replacement of abdominal wall seroma drain. Electronically signed by: Levi Gómez MD 09/26/2024 05:24 PM TRAN
--- NOTE | 2024-09-19 12:01 | ED_ITS ---
HPI - Abdominal Pain General Chief Complaint: General Medical Stated Complaint: abd pain, pressure Time Seen by Provider: 09/19/24 14:30 Related Data Home Medications ?Medication ?Instructions ?Recorded ?Confirmed clonazepam 0.5 mg tablet 0.5 mg PO BID PRN Anxiety 03/03/23 09/19/24 levalbuterol tartrate 45 2 puff inhalation TID PRN COPD 03/03/23 09/19/24 mcg/actuation aerosol inhaler buspirone 7.5 mg tablet 7.5 mg PO TID 08/08/24 09/19/24 melatonin 3 mg tablet 3 - 6 mg PO BEDTIME PRN Sleep 08/08/24 09/19/24 Previous Rx's ?Medication ?Instructions ?Recorded bisacodyl 10 mg/30 mL enema (Fleet 10 mg (30 mL) [place] DAILY PRN 09/17/24 Bisacodyl) constipation #90 mL ciprofloxacin HCl 500 mg tablet 500 mg PO BID 30 days #60 tabs 09/22/24 docusate sodium 100 mg capsule 100 mg PO BID Constipation 90 days 09/22/24 (Dulcolax Stool Softener #180 caps (docusate)) peg 3350-electrolytes 236 240 ml PO Q10M #4,000 mL 09/22/24 gram-22.74 gram-6.74 gram-5.86 gram solution (GaviLyte-G) psyllium husk 3.4 gram/5.4 gram 1 tbsp PO DAILY #660 grams 09/22/24 oral powder (Metamucil) Allergies Allergy/AdvReac Type Severity Reaction Status Date / Time oxycodone [From Percocet] Allergy Severe severe Verified 09/19/24 12:07 vomiting, dizziness PMFSH Past Medical History Medical History Regularly irregular pulse rhythym Anxiety GERD (gastroesophageal reflux disease) Former smoker Pulmonary embolism Right leg DVT Surgical History S/P panniculectomy Hx of section Hx of breast reduction, elective Hx of gastric bypass Family History Family History Mother Diabetes Father No problems noted. Daughter No problems noted. Son No problems noted. Son Prediabetes Social History Social History Household Members: Spouse Housing: Apartment Are you a primary career technical supervisor to a significant other at home: Yes (son 15 yr old) Do you presently have visiting nurse or other home services: No 75 years or older and lives alone: No Alcohol intake: never Patient Tobacco Use Status: Former Tobacco user Tobacco use type: Cigarette Second Hand Smoke Exposure: Yes service: No Physical Exam ED Vital Signs: Vital Signs - 24 hr 09/19/24 12:05 Temperature 97.3 F Pulse Rate 101 H Respiratory Rate 18 Blood Pressure 145/78 H Pulse Oximetry 99 Oxygen Delivery Method Room Air BMI result Body Mass Index 26.4 Course Course Course Narrative: This is an RME: Additional HPI, ROS, PE not included below will be deferred to primary provider. RME assessment and note performed by: Shena Myers PA-C This is a 15-shg[age]-mgo-female, hx of anxiety, GERD, PE/DVT after gastric bypass 6 years ago (not on anticoagulation), who presents to the ER with complaints to the ER with complaints of abdominal bloating and concerns for increased drainage from surgical site. Patient recently had a panniculectomy performed by Dr. Warren on 06/23. Patient has been following up with her surgeon's office. She was admitted on 08/07 for large seroma and had pigtail catheter placed on 08/08. She has been seeing Levi Rivera outpatient. Reports that 3-4 days ago she pulled on the catheter and she noticed bloody discharge in the catheter. Dr. Strauss's PA called, instructing to obtain CT abd/pelvis w/o contrast Plan: Labs, UA, further ER eval needed Reevaluation(s) Reevaluation #1: See note from primary provider, Dr. Conner. Medical Decision Making Lab Data 09/22/24 05:32 09/22/24 05:32 Labs: Lab Results 09/19/24 Range/Units 12:23 WBC 12.8 H (4.8-10.8) X10*3/uL RBC 4.08 L D (4.20-5.50) X10*6/uL Hgb 10.7 L (12.0-16.0) g/dl Hct 34.8 L (37.0-47.0) % MCV 85.3 (80.0-98.0) fL MCH 26.2 L (27.0-33.0) pg MCHC 30.7 L (31.0-35.0) g/dl RDW 17.2 H (11.0-16.0) % Plt Count 506 H (160-400) X10*3/uL MPV 8.7 L (9.4-12.3) fL Immature Gran % (Auto) 0.3 (0.0-0.4) % Neut % (Auto) 71.2 (45-73) % Lymph % (Auto) 20.9 (20-40) % [place] % (Auto) 6.9 (2-11) % Eos % (Auto) 0.4 (0-4) % Baso % (Auto) 0.3 (0-2) % Lymph # (Auto) 2.7 (1.2-4.9) X10*3/uL [place] # (Auto) 0.9 (0.1-1.2) X10*3/uL Eos # (Auto) 0.1 (0.0-0.4) X10*3/uL Baso # (Auto) 0.0 (0.0-0.2) X10*3/uL Abs Immat Gran (auto) 0.04 H (0.00-0.03) X10*3/uL Absolute Neuts (auto) 9.1 H (2.0-8.3) x10*3/uL Absolute Nucleated RBC 0.000 (0.0-0.012) X10*3/uL Nucleated RBC % (auto) 0.0 (0.0-0.2) /100WBC Sodium 135 (135-145) mmol/L Potassium 2.4 L* D (3.3-5.1) mmol/L Chloride 111 H (96-108) mmol/L Carbon Dioxide 15 L (22-29) mmol/L Anion Gap 11 L (12-20) BUN 9 (9-16) mg/dL Creatinine 1.61 H (0.5-1.4) mg/dL Estim Creat Clear Calc 36.8 Estimated GFR 34 Random Glucose 170 H (60-115) mg/dL Calcium 8.7 D (8.4-10.2) mg/dL Magnesium 2.1 (1.6-2.6) mg/dL Total Bilirubin 0.3 (0.0-1.0) mg/dL AST 19 (5-31) U/L ALT 17 (0-31) U/L Alkaline Phosphatase 132 H (39-117) U/L Total Protein 7.9 (6.5-8.0) g/dL Albumin 4.2 (3.5-5.0) g/dL Lipase 30 (8-78) U/L Beta HCG, Quant < 2 mIU/mL Independent Interpretation I performed an independent interpretation of an: EKG Interpretation: NSR 100BPM with normal intervals, without ischemic changes Medications Administered Discontinued Medications Generic Name Dose Route Start Last Admin Trade Name Freq PRN Reason Stop Dose Admin Acetaminophen 650 mg 09/19/24 15:19 09/21/24 02:53 Acetaminophen 325 Mg Tablet PO 650 mg Q6H PRN Administration Pain, Mild (Pain Scale 1-3), fever or headache Buspirone HCl 7.5 mg 09/19/24 21:00 09/22/24 08:01 Buspirone Hcl 5 Mg Tablet PO 7.5 mg TID MULUGETA Administration Clonazepam 0.5 mg 09/19/24 15:35 09/21/24 21:23 Clonazepam 0.5 Mg Tablet PO 0.5 mg BID PRN Administration Anxiety Furosemide 10 mg 09/21/24 21:45 09/21/24 22:32 Furosemide 20 Mg/2 Ml Vial IVPUSH 09/21/24 21:46 10 mg ONCE ONE Administration Protocol Sodium Chloride 1,000 mls @ 999 mls/hr 09/19/24 14:45 09/19/24 16:34 Ns IV 09/19/24 15:45 Infused .Q1H1M MULUGETA Infusion Potassium Chloride 10 meq in 100 mls @ 100 mls/hr 09/19/24 14:45 09/19/24 21:42 Potassium Chloride/H20 IV 09/19/24 18:44 Infused Q1H MULUGETA Infusion Sodium Chloride 1,000 mls @ 100 mls/hr 09/19/24 15:30 09/20/24 07:31 Ns IVCONT Infused .Q10H MULUGETA Infusion Thiamine HCl 100 mg/ Sodium 101 mls @ 202 mls/hr 09/19/24 15:25 09/19/24 17:34 Chloride IV 09/19/24 15:54 Infused ONCE ONE Infusion Folic Acid 1 mg/ Sodium 50.2 mls @ 100.4 mls/hr 09/19/24 17:00 09/19/24 18:30 Chloride IV 09/19/24 17:29 Infused ONCE ONE Infusion Piperacillin Sod/Tazobactam 50 mls @ 100 mls/hr 09/19/24 16:00 09/22/24 08:36 Sod 3.375 gm/ Sodium Chloride IV Infused Q8H MULUGETA Infusion Potassium Chloride/Sodium Chloride 40 meq in 1,000 mls @ 100 mls/hr 09/20/24 07:30 09/22/24 04:27 Kcl 40 Meq In 0.9 % Sodium Chl IVCONT 100 mls/hr .Q10H MULUGETA Administration Potassium Chloride 10 meq in 100 mls @ 100 mls/hr 09/20/24 08:30 09/20/24 11:57 Potassium Chloride/H20 IV 09/20/24 10:29 Infused Q1H MULUGETA Infusion Potassium Chloride 10 meq in 100 mls @ 100 mls/hr 09/21/24 07:31 09/21/24 11:37 Potassium Chloride/H20 IV 09/21/24 08:30 Infused ONCE ONE Infusion Iron Sucrose 200 mg 09/20/24 12:30 09/20/24 12:52 Iron Sucrose Complex 200 Mg/10 Ml Vial IVPUSH 09/20/24 12:31 200 mg ONCE ONE Administration Lidocaine HCl 5 ml 09/20/24 14:18 09/20/24 14:18 Lidocaine Hcl 1 % Mpf 5 Ml Vial SUBCUT 09/20/24 14:19 5 ml ONCE ONE Administration Melatonin 3 mg 09/19/24 15:35 09/21/24 21:32 Melatonin 3 Mg Tablet PO 3 mg BEDTIME MRX1 PRN Administration Sleep Pantoprazole Sodium 40 mg 09/19/24 16:00 09/22/24 06:14 Pantoprazole Sodium 40 Mg/10 Ml Vial IVPUSH 40 mg DAILY@0630 MULUGETA Administration Polyethylene Glycol 17 gm 09/20/24 09:00 09/22/24 08:01 Polyethylene Glycol 3350 17 Gm Powd.Pack PO 17 gm DAILY MULUGETA Administration Polyethylene Glycol/Electrolytes 240 ml 09/21/24 21:45 09/21/24 23:53 Peg 3350/Na Sulf,Bicarb,Cl/Kcl 4,000 Ml Soln.Recon PO 09/21/24 22:36 240 ml Q10M MULUGETA Administration Sodium Chloride 3 ml 09/19/24 16:00 09/22/24 07:28 0.9 % Sodium Chloride Flush 3 Ml Syringe IVFLUSH Not Given QSHIFT [facility] Discharge Plan Discharge Clinical Impression: Acute hypokalemia, MAGI (acute kidney injury), Abdominal pain Patient Disposition: Admitted As Inpatient Interventions: Admission Worksheet (ED) Last Done: 09/19/24 19:30 Discharge Date/Time: 09/19/24 20:35
[2024-09-19 12:29] LABS: MANUAL DIFF FLAG NO
[2024-09-19 12:32] LABS: Basophils Percent Auto 0.3 % (0-2); Eosinophils Absolute Auto 0.1 X10*3/uL (0.0-0.4); Eosinophils Percent Auto 0.4 % (0-4); Hematocrit 34.8 % (37.0-47.0); Hemoglobin 10.7 g/dl (12.0-16.0); Imm Gran Abs Auto 0.04 X10*3/uL (0.00-0.03); Imm Gran Pct Auto 0.3 % (0.0-0.4); Lymphocytes Absolute Auto 2.7 X10*3/uL (1.2-4.9); Lymphocytes Percent Auto 20.9 % (20-40); Mean Corpuscular HGB Conc 30.7 g/dl (31.0-35.0); Mean Corpuscular Hemoglobin 26.2 pg (27.0-33.0); Mean Corpuscular Volume 85.3 fL (80.0-98.0); Mean Platelet Volume 8.7 fL (9.4-12.3); Monocytes Absolute Auto 0.9 X10*3/uL (0.1-1.2); Monocytes Percent Auto 6.9 % (2-11); Neutrophils Absolute Auto 9.1 x10*3/uL (2.0-8.3); Neutrophils Percent Auto 71.2 % (45-73); Platelet Count 506 X10*3/uL (160-400); Red Blood Count 4.08 X10*6/uL (4.20-5.50); Red Cell Distribution Width 17.2 % (11.0-16.0); White Blood Count 12.8 X10*3/uL (4.8-10.8)
[2024-09-19 12:49] LABS: Alanine Aminotransferase 17 U/L (0-31); Albumin Level 4.2 g/dL (3.5-5.0); Alkaline Phosphatase 132 U/L (39-117); Anion Gap 11 (12-20); Aspartate Amino Transferase 19 U/L (5-31); Bilirubin Total 0.3 mg/dL (0.0-1.0); Blood Urea Nitrogen 9 mg/dL (9-16); Calcium 8.7 mg/dL (8.4-10.2); Carbon Dioxide 15 mmol/L (22-29); Chloride 111 mmol/L (96-108); Creatinine Clr Calc Pharmacy 36.8; Estimated Glomerular Filt Rate 34; Glucose Random 170 mg/dL (60-115); Lipase 30 U/L (8-78); Magnesium 2.1 mg/dL (1.6-2.6); Potassium 2.4 mmol/L (3.3-5.1); Sodium 135 mmol/L (135-145); Total Protein 7.9 g/dL (6.5-8.0)
--- NOTE | 2024-09-19 12:50 | ECG_ITS ---
Test Reason : hypokalemia Blood Pressure : / mmHG Vent. Rate : 100 BPM Atrial Rate : 100 BPM P-R Int : 142 ms QRS Dur : 080 ms QT Int : 310 ms P-R-T Axes : 049 054 263 degrees QTc Int : 399 ms Normal sinus rhythm Nonspecific ST and T wave abnormality Abnormal ECG When compared with ECG of 07-AUG-2024 23:42, Premature atrial complexes are no longer Present Nonspecific T wave abnormality, worse in Inferior leads Nonspecific T wave abnormality, worse in Lateral leads Referred By: Shena Myers Electronically Signed By:JOSELIN CROCKER
[2024-09-19 12:52] LABS: HCG Quantitative < 2 mIU/mL
--- NOTE | 2024-09-19 14:30 | ED.GENADULT ---
HPI - General Adult General Chief complaint: General Medical Stated complaint: abd pain, pressure Time Seen by Provider: 09/19/24 14:30 History of Present Illness ED Provider: Dr. Conner HPI narrative: 48 y/o F patient; [facility] panniculoectomy on 06/2024; presents from home with report of abdominal pain, bloating and increased drainage. Chart review - patient was last seen by the Bariatric Surgery Department in this hospital on 09/07/2024. The patient had an IR placed pigtail drain placed 08/08/2024 for seroma. Related Data Home Medications ?Medication ?Instructions ?Recorded ?Confirmed clonazepam 0.5 mg tablet 0.5 mg PO BID PRN Anxiety 03/03/23 09/19/24 levalbuterol tartrate 45 2 puff inhalation TID PRN COPD 03/03/23 09/19/24 mcg/actuation aerosol inhaler buspirone 7.5 mg tablet 7.5 mg PO TID 08/08/24 09/19/24 melatonin 3 mg tablet 3 - 6 mg PO BEDTIME PRN Sleep 08/08/24 09/19/24 diclofenac sodium 75 mg 75 mg PO DAILY 09/19/24 09/19/24 tablet,delayed release docusate sodium 100 mg capsule 100 mg PO BEDTIME PRN Constipation 09/19/24 09/19/24 (Dulcolax Stool Softener (docusate)) Previous Rx's ?Medication ?Instructions ?Recorded bisacodyl 10 mg/30 mL enema (Fleet 10 mg (30 mL) [place] DAILY PRN 09/17/24 Bisacodyl) constipation #90 mL Allergies Allergy/AdvReac Type Severity Reaction Status Date / Time oxycodone [From Percocet] Allergy Severe severe Verified 09/19/24 12:07 vomiting, dizziness Review of Systems Review of Systems: Yes all other systems are reviewed and are negative PMFSH Past Medical History Attestation statement: The following information was validated with the patient. Source: old records reviewed Medical History (Updated 09/19/24 @ 15:23 by TESSA Ludwig) Regularly irregular pulse rhythym Anxiety GERD (gastroesophageal reflux disease) Former smoker Pulmonary embolism Right leg DVT Surgical History (Updated 09/19/24 @ 15:26 by TESSA Ludwig) S/P panniculectomy Hx of section Hx of breast reduction, elective Hx of gastric bypass Family History Family History Mother Diabetes Father No problems noted. Daughter No problems noted. Son No problems noted. Son Prediabetes Social History Social History Household Members: Family and Children Housing: Apartment Are you a primary campground caretaker to a significant other at home: Yes (son 15 yr old) Do you presently have visiting nurse or other home services: No Alcohol intake: never Patient Tobacco Use Status: Former Tobacco user Tobacco use type: Cigarette Smoked in Last 30 Days: No Second Hand Smoke Exposure: Yes Use of substances other than those prescribed or required for medical reasons: No Advance Directives: No Advance Directives Information Provided: Yes Do you have a plan to hurt others: No Plan Nutrition Risks: No Nutritional Risk service: No Physical Exam ED Vital Signs: Vital Signs - 24 hr 09/19/24 12:05 Temperature 97.3 F Pulse Rate 101 H Respiratory Rate 18 Blood Pressure 145/78 H Pulse Oximetry 99 Oxygen Delivery Method Room Air BMI result Body Mass Index 26.4 Patient is afebrile, tachycardic to 101, and mildly hypertensive. Const General: cooperative Orientation/consciousness: patient oriented x3 HENME Head: Yes normal to inspection and Yes atraumatic Eyes General: appearance normal, both eyes and all related structures Neck Neck: Yes normal visual inspection, Yes full ROM, Yes supple and No tender Chest Chest palpation & inspection: normal inspection of the chest and normal palpation of entire chest wall Resp Effort & Inspection: normal respiratory effort, able to speak in complete sentences, no cough and no respiratory distress Auscultation: clear to auscultation bilaterally Cardio Rate: tachycardic Rhythm: regular rhythm Peripheral pulses: Peripheral pulses 2+ throughout GI Inspection: Yes normal to inspection, No Abdominal wall edema and No distended Palpation (GI): Soft to palpation, Tenderness to palpation present (GI), no guarding and not rigid Auscultation: normal bowel sounds Back/Spine/Pelvis Back: No back tenderness Neuro General: patient oriented x3 Course Course Course Narrative: Patient is afebrile, tachycardic, and mildly hypertensive. Reviewed triage work up. Leukocytosis 12.8. Baseline anemia Hgb 10.7. Hypokalemia 2.4. Bicarb 15. Cr 1.61. (baseline 0.89). Consistent with MAGI. Given dehydration, MAGI, and abdominal pain - will plan on admission to bariatric surgery service. Condition: Stable Medications Administered Generic Name Dose Route Start Last Admin Trade Name Freq PRN Reason Stop Dose Admin Potassium Chloride 10 meq in 100 mls @ 100 mls/hr 09/19/24 14:45 09/19/24 15:02 Potassium Chloride/H20 IV 09/19/24 18:44 100 mls/hr Q1H MULUGETA Administration Discontinued Medications Generic Name Dose Route Start Last Admin Trade Name Freq PRN Reason Stop Dose Admin Sodium Chloride 1,000 mls @ 999 mls/hr 09/19/24 14:45 09/19/24 14:59 Ns IV 09/19/24 15:45 999 mls/hr .Q1H1M MULUGETA Administration Medical Decision Making Lab Data 09/19/24 12:23 09/19/24 12:23 Labs: Lab Results 09/19/24 Range/Units 12:23 WBC 12.8 H (4.8-10.8) X10*3/uL RBC 4.08 L D (4.20-5.50) X10*6/uL Hgb 10.7 L (12.0-16.0) g/dl Hct 34.8 L (37.0-47.0) % MCV 85.3 (80.0-98.0) fL MCH 26.2 L (27.0-33.0) pg MCHC 30.7 L (31.0-35.0) g/dl RDW 17.2 H (11.0-16.0) % Plt Count 506 H (160-400) X10*3/uL MPV 8.7 L (9.4-12.3) fL Immature Gran % (Auto) 0.3 (0.0-0.4) % Neut % (Auto) 71.2 (45-73) % Lymph % (Auto) 20.9 (20-40) % [place] % (Auto) 6.9 (2-11) % Eos % (Auto) 0.4 (0-4) % Baso % (Auto) 0.3 (0-2) % Lymph # (Auto) 2.7 (1.2-4.9) X10*3/uL [place] # (Auto) 0.9 (0.1-1.2) X10*3/uL Eos # (Auto) 0.1 (0.0-0.4) X10*3/uL Baso # (Auto) 0.0 (0.0-0.2) X10*3/uL Abs Immat Gran (auto) 0.04 H (0.00-0.03) X10*3/uL Absolute Neuts (auto) 9.1 H (2.0-8.3) x10*3/uL Absolute Nucleated RBC 0.000 (0.0-0.012) X10*3/uL Nucleated RBC % (auto) 0.0 (0.0-0.2) /100WBC Sodium 135 (135-145) mmol/L Potassium 2.4 L* D (3.3-5.1) mmol/L Chloride 111 H (96-108) mmol/L Carbon Dioxide 15 L (22-29) mmol/L Anion Gap 11 L (12-20) BUN 9 (9-16) mg/dL Creatinine 1.61 H (0.5-1.4) mg/dL Estim Creat Clear Calc 36.8 Estimated GFR 34 Random Glucose 170 H (60-115) mg/dL Calcium 8.7 D (8.4-10.2) mg/dL Magnesium 2.1 (1.6-2.6) mg/dL Total Bilirubin 0.3 (0.0-1.0) mg/dL AST 19 (5-31) U/L ALT 17 (0-31) U/L Alkaline Phosphatase 132 H (39-117) U/L Total Protein 7.9 (6.5-8.0) g/dL Albumin 4.2 (3.5-5.0) g/dL Lipase 30 (8-78) U/L Beta HCG, Quant < 2 mIU/mL Discharge Plan Discharge Clinical Impression: Acute hypokalemia, MAGI (acute kidney injury), Abdominal pain Patient Disposition: Admitted As Inpatient
[2024-09-19] MEDS: 0.9 % Sodium Chloride 1,000 ML 999 ML IV (14:59)
[2024-09-19] MEDS: Potassium Chloride/H20 10 MEQ/100 ML PIGGYBACK 100 MEQ IV ×2 (15:02→16:22)
--- NOTE | 2024-09-19 15:20 | PHA.MEDREC ---
Addendum entered by Rhina Gonzalez RPh 09/19/24 16:15: Med rec was reviewed by [facility]. Original Note: Pharmacy Consult ? Medication Reconciliation Pharmacy has completed the medication reconciliation. Spoke with patient and confirmed medications with her. She confirmed she finished the Antibiotic regimen she was taking 5 days ago. She also confirmed she is still taking the Bisacodyl Enema and states she uses it as needed but has not had to use it in a bit . She confirmed she has been taking her Diclofenac Sodium 75mg tab once daily instead of twice daily and its been working fine for her. She also confirmed she takes a Docusate 100mg tab at bedtime as needed and states she takes it with the Melatonin 3mg tab as needed and confirmed with the Melatonin 3mg tab she takes 1-2 tablets as needed for sleep. She confirmed she has been taking her Levalbuterol Tartrate 45mcg three times a days needed for the last few days and its been helping her. She states she took her morning medication this morning @0830.
--- NOTE | 2024-09-19 15:30 | PM.HPGS ---
History of Present Illness History of Present Illness Date of Service: 09/19/24 Chief complaint: hypokalemia Narrative: Ashley Boggs is a 48 year old female presenting to the hospital today with a several day history of abdominal fullness. She states that several days ago she did have an accidental pull on her drain with some bloody drainage. She discussed with Dr. Warren her constipation which she has had chronically, over the weekend, milk of magnesia and enemas were recommended. States she had multiple bowel movements since yesterday but abdominal fullness persists and she was instructed go to the emergency room for CT scan of her abdomen. In the emergency room she was found to have acute hypokalemia and acute kidney injury. Decision was made to admit her to the hospital for several days for fluid resuscitation, blood transfusion and antibiotics. She is status post panniculectomy on 06/1924. She did have a drain that she had dislodged accidentally with reaccumulation of fluid requiring IR placement of a pigtail catheter on 08/08/24. [facility] Past Medical History Medical History (Updated 09/19/24 @ 15:23 by TESSA Ludwig) Regularly irregular pulse rhythym Anxiety GERD (gastroesophageal reflux disease) Former smoker Pulmonary embolism Right leg DVT Family History Family History Mother Diabetes Father No problems noted. Daughter No problems noted. Son No problems noted. Son Prediabetes Surgical History Surgical History (Updated 09/19/24 @ 15:26 by TESSA Ludwig) S/P panniculectomy Hx of section Hx of breast reduction, elective Hx of gastric bypass Social History Social History Household Members: Family and Children Housing: Apartment Are you a primary spiritual care coordinator to a significant other at home: Yes (son 15 yr old) Do you presently have visiting nurse or other home services: No Alcohol intake: never Patient Tobacco Use Status: Former Tobacco user Tobacco use type: Cigarette Second Hand Smoke Exposure: Yes service: No Meds Allergies Allergy/AdvReac Type Severity Reaction Status Date / Time oxycodone [From Percocet] Allergy Severe severe Verified 09/19/24 12:07 vomiting, dizziness Active Medications: Current Medications Acetaminophen (Acetaminophen 325 Mg Tablet) 650 mg PO Q6H PRN PRN Reason: Pain, Mild (Pain Scale 1-3), fever or headache Cyanocobalamin (Cyanocobalamin (Vitamin B-12) 1,000 Mcg/Ml Vial) 1,000 mcg IM ONCE MULUGETA Diphenhydramine HCl (Diphenhydramine Hcl 50 Mg/Ml Vial) 25 mg IVPUSH ONCE PRN PRN Reason: Infusion reaction Sodium Chloride (Ns) 1,000 mls @ 999 mls/hr IV .Q1H1M MULUGETA Stop: 09/19/24 15:45 Last Admin: 09/19/24 14:59 Dose: 999 mls/hr Potassium Chloride (Potassium Chloride/H20) 10 meq in 100 mls @ 100 mls/hr IV Q1H MULUGETA Stop: 09/19/24 18:44 Last Admin: 09/19/24 15:02 Dose: 100 mls/hr Sodium Chloride (Ns) 1,000 mls @ 100 mls/hr IVCONT .Q10H MULUGETA Thiamine HCl 100 mg/ Sodium (Chloride) 101 mls @ 202 mls/hr IV ONCE ONE Stop: 09/19/24 15:54 Folic Acid 1 mg/ Sodium (Chloride) 50.2 mls @ 100.4 mls/hr IV ONCE ONE Stop: 09/19/24 15:54 Ondansetron HCl (Ondansetron Hcl 4 Mg/2 Ml Vial) 4 mg IVPUSH Q8H PRN PRN Reason: Nausea and Vomiting Polyethylene Glycol (Polyethylene Glycol 3350 17 Gm Powd.Pack) 17 gm PO DAILY MULUGETA Sodium Chloride (0.9 % Sodium Chloride Flush 3 Ml Syringe) 3 ml IVFLUSH QSHIFT MULUGETA Sodium Chloride (0.9 % Sodium Chloride Flush 10 Ml Syringe) 5 ml IVFLUSH ONCE PRN PRN Reason: Infusion Center Home Medications ?Medication ?Instructions ?Recorded ?Confirmed ?Last Taken ?Type clonazepam 0.5 mg tablet 0.5 mg PO BID PRN Anxiety 03/03/23 09/19/24 09/19/24 08:30 History levalbuterol tartrate 45 2 puff inhalation TID PRN COPD 03/03/23 09/19/24 09/18/24 History mcg/actuation aerosol inhaler buspirone 7.5 mg tablet 7.5 mg PO TID 1109/19/24 09/19/24 08:30 History melatonin 3 mg tablet 3 - 6 mg PO BEDTIME PRN Sleep 08/08/24 09/19/24 2 Days Ago History ~08/06/24 diclofenac sodium 75 mg 75 mg PO DAILY 09/19/24 09/19/24 09/19/24 08:30 History tablet,delayed release docusate sodium 100 mg capsule 100 mg PO BEDTIME PRN Constipation 09/19/24 09/19/24 Unknown History (Dulcolax Stool Softener (docusate)) Physical Exam Vital Signs: Vital Signs: Last Vital Signs Temp 97.6 F 09/19/24 15:18 Pulse 96 09/19/24 15:18 Resp 20 09/19/24 15:18 BP 120/80 09/19/24 15:18 Pulse Ox 100 09/19/24 15:18 O2 Del Method Room Air 09/19/24 15:18 BMI result Body Mass Index 26.4 Const: General: cooperative, healthy appearing and no acute distress Orientation/consciousness: patient oriented x3 HEENT: Head: Yes normal to inspection Ears: hearing grossly normal bilaterally General nose exam: Normal external nose present Face and sinus: Yes normal facial exam Eyes: General: appearance normal, both eyes and all related structures Resp: Effort & Inspection: normal respiratory effort Auscultation: clear to auscultation bilaterally Cardio: Rate: regular rate Rhythm: regular rhythm Heart sounds: S1 normal heart sound present and S2 normal heart sound present GI: Other: Drain with serosanguineous collection within the bulb Palpation (GI): Soft to palpation, Tenderness to palpation present (GI) (Mild infraumbilical tenderness) and no guarding Auscultation: normal bowel sounds Skin: General skin exam: no rashes or lesions noted Neuro: General: patient oriented x3 Extrem: General: No edema Psych: Appearance: grossly normal Mental Status: mental status grossly normal Speech and movement: Normal speech and movement present Affect: normal affect Attitude: cooperative Results Results Labs: Short CBC 09/19/24 Range/Units 12:23 WBC 12.8 H (4.8-10.8) X10*3/uL Hgb 10.7 L (12.0-16.0) g/dl Hct 34.8 L (37.0-47.0) % Plt Count 506 H (160-400) X10*3/uL BMP 09/19/24 12:23 Sodium 135 Potassium 2.4 L* D Chloride 111 H Carbon Dioxide 15 L BUN 9 Creatinine 1.61 H Calcium 8.7 D Liver Function 09/19/24 Range/Units 12:23 Total Bilirubin 0.3 (0.0-1.0) mg/dL AST 19 (5-31) U/L ALT 17 (0-31) U/L Alkaline Phosphatase 132 H (39-117) U/L Albumin 4.2 (3.5-5.0) g/dL Assessment and Plan (1) Abdominal pain: Status: Acute Likely in the setting of chronic constipation. Multiple bowel movements within the last 24 hours, we will continue to monitor closely. Certainly there is the consideration for reaccumulation of fluid within the previously noted seroma post panniculectomy. It appears as though the drain has dislodged somewhat and is not specifically within what appears to be some fluid reaccumulation. We will consult Interventional Radiology for evaluation of drain and possible repositioning. Patient has been getting Cipro as an outpatient. We will add Zosyn 3.375 IV q.8 hours. (2) Anemia: Status: Acute Likely with hemoconcentration given MAGI. Transfuse 2 units packed red cells, repeat CBC in the morning (3) MAGI (acute kidney injury): Status: Acute In the setting of dehydration. Patient will be given 2 units packed red cells, IV fluids, repeat labs in the morning. (4) Acute hypokalemia: Status: Acute Likely in the setting of multiple bowel movements. Replace IV. (5) Hx of gastric bypass: Status: Acute Add PPI. Shakes b.i.d.. Add B12 1000 mcg IM x1, thiamine 100 mg IV daily, folic acid 1 mg IV daily. Plan Discussed in entirety with Dr. Warren. Quality Stroke Does the patient have a stroke diagnosis?: No VTE Prior VTE?: No VTE Risk Level:: Medical - low VTE Device Contraindication: N/A - Device Ordered VTE Drug Contraindication: Treatment Not Indicated Procedures Date of Service Date of Service: 09/19/24
[2024-09-19] MEDS: 0.9 % Sodium Chloride Flush 3 ML SYRINGE IVFLUSH (16:26)
[2024-09-19] MEDS: 0.9 % Sodium Chloride 1,000 ML 100 ML IVCONT (16:26)
[2024-09-19] MEDS: Pantoprazole Sodium 40 MG/10 ML VIAL IVPUSH (16:26)
[2024-09-19] MEDS: Thiamine HCL 100 MG in 0.9 % Sodium Chloride 100 ML 202 MG IV (16:32)
[2024-09-19 16:55] LABS: Appearance Urine Clear; Color Urine Yellow; Glucose Urine UA 250 mg/dL (Negative); Leukocyte Esterase Urine Negative (Negative); Nitrite Urine Negative (Negative); PH 5.5 (5.0-9.0); UMIC TRIGGER UACC YES; Urine Blood Small (1+) (Negative); Urine Ketones Negative (Negative); Urine Protein 100 (2+) mg/dL (Neg-Trace)
[2024-09-19 17:16] LABS: Bacteria Urine None Seen (None Seen); Granular Casts Urine Present; RBC Urine 0-2 /HPF (0-2); WBC Urine 0-5 /HPF (0-5)
[2024-09-19 17:18] LABS: Folate 12.7 ng/mL (> or = 4.0); Vitamin B12 329 pg/mL (200-900)
--- NOTE | 2024-09-19 17:20 | PC.NURSE ---
abx delayed d/t needing to confirm with admitted provider no BC needed, Levi Rivera responded no need for BC at this time. Will hang abx
[2024-09-19] MEDS: Piperacillin Sodium/Tazobactam 3.375 GM in 0.9 % Sodium Chloride 50 ML IV ×2 (17:26→23:51)
[2024-09-19] MEDS: Folic Acid 1 MG in 0.9 % Sodium Chloride 50 ML 100.4 MG IV (17:33)
[2024-09-19] MEDS: Potassium Chloride/H20 10 MEQ/100 ML PIGGYBACK 60 MEQ IV ×2 (17:56→19:34)
[2024-09-19] MEDS: clonazePAM 0.5 MG TABLET PO (21:45)
[2024-09-19] MEDS: Melatonin 3 MG TABLET PO (21:45)
[2024-09-19] MEDS: busPIRone HCl 5 MG TABLET 7.5 MG PO (21:45)
[2024-09-20] VITALS (7 sets, daily range): BP systolic 107–126; BP diastolic 58–80; PULSE 63–100; RESP 16–18; TEMP 36.4–37.4; O2SAT 97–98
[2024-09-20] MEDS: Acetaminophen 325 MG TABLET 650 MG PO ×2 (03:46→10:35)
[2024-09-20] MEDS: Pantoprazole Sodium 40 MG/10 ML VIAL IVPUSH (05:45)
[2024-09-20 06:04] LABS: MANUAL DIFF FLAG NO
[2024-09-20 06:06] LABS: Basophils Percent Auto 0.3 % (0-2); Eosinophils Absolute Auto 0.1 X10*3/uL (0.0-0.4); Eosinophils Percent Auto 0.6 % (0-4); Hematocrit 33.5 % (37.0-47.0); Hemoglobin 11.1 g/dl (12.0-16.0); Imm Gran Abs Auto 0.03 X10*3/uL (0.00-0.03); Imm Gran Pct Auto 0.3 % (0.0-0.4); Lymphocytes Absolute Auto 2.7 X10*3/uL (1.2-4.9); Lymphocytes Percent Auto 27.5 % (20-40); Mean Corpuscular HGB Conc 33.1 g/dl (31.0-35.0); Mean Corpuscular Hemoglobin 27.5 pg (27.0-33.0); Mean Corpuscular Volume 82.9 fL (80.0-98.0); Mean Platelet Volume 9.4 fL (9.4-12.3); Monocytes Absolute Auto 0.8 X10*3/uL (0.1-1.2); Monocytes Percent Auto 8.4 % (2-11); Neutrophils Absolute Auto 6.1 x10*3/uL (2.0-8.3); Neutrophils Percent Auto 62.9 % (45-73); Platelet Count 301 X10*3/uL (160-400); Red Blood Count 4.04 X10*6/uL (4.20-5.50); Red Cell Distribution Width 17.1 % (11.0-16.0); White Blood Count 9.7 X10*3/uL (4.8-10.8)
[2024-09-20] MEDS: 0.9 % Sodium Chloride 1,000 ML 100 ML IVCONT (06:26)
[2024-09-20 06:32] LABS: Anion Gap 10 (12-20); Blood Urea Nitrogen 7 mg/dL (9-16); Calcium 7.2 mg/dL (8.4-10.2); Carbon Dioxide 15 mmol/L (22-29); Chloride 116 mmol/L (96-108); Creatinine Clr Calc Pharmacy 57.6; Estimated Glomerular Filt Rate 57; Glucose Random 104 mg/dL (60-115); Potassium 2.6 mmol/L (3.3-5.1); Sodium 138 mmol/L (135-145)
[2024-09-20] MEDS: Piperacillin Sodium/Tazobactam 3.375 GM in 0.9 % Sodium Chloride 50 ML IV ×3 (08:14→23:42)
[2024-09-20] MEDS: polyethylene glycoL 3350 17 GM POWD.PACK PO (08:15)
[2024-09-20] MEDS: busPIRone HCl 5 MG TABLET 7.5 MG PO ×3 (08:15→20:49)
[2024-09-20] MEDS: KCl 40 mEq in 0.9 % Sodium Chl 40 MEQ/1,000 ML IV.SOLN 125 MEQ IVCONT (08:16)
[2024-09-20] MEDS: 0.9 % Sodium Chloride Flush 3 ML SYRINGE IVFLUSH (08:28)
--- NOTE | 2024-09-20 08:38 | P.PNGS_ITS ---
Subjective Subjective Date of Service: 09/20/24 Interval history: Was admitted yesterday due to severe hypokalemia of 2.4. In addition she was anemic and it seems that the drain tip has moved to the periphery of the fluid collection and it is not well draining the fluid which has increased. I reviewed yeserday's and today's blood work as well as the CT. Received also 2 units of PRBCs. Patient feels better today and the fullness in the lower abdomen has improved. Physical Exam 2 Vital Signs: Vital Signs: Last Vital Signs Temp 99.1 F 09/20/24 07:23 Pulse 93 09/20/24 07:23 Resp 16 09/20/24 07:23 BP 119/67 09/20/24 07:23 Pulse Ox 97 09/20/24 07:23 O2 Del Method Room Air 09/20/24 07:23 BMI result Body Mass Index 26.4 GI: Inspection: Yes incision (well healed) and Yes other (drain with serosanguinous fluid) Palpation (GI): Other GI palpation findings present (some firmness at the midline inferior to umbilicus at the suprapubic region) Objective Data Active Medications Acetaminophen (Acetaminophen 325 Mg Tablet) 650 mg PO Q6H PRN PRN Reason: Pain, Mild (Pain Scale 1-3), fever or headache Last Admin: 09/20/24 03:46 Dose: 650 mg Documented By: JAKOB Buspirone HCl (Buspirone Hcl 5 Mg Tablet) 7.5 mg PO TID MULUGETA Last Admin: 09/20/24 08:15 Dose: 7.5 mg Documented By: COLTEN Clonazepam (Clonazepam 0.5 Mg Tablet) 0.5 mg PO BID PRN PRN Reason: Anxiety Last Admin: 09/19/24 21:45 Dose: 0.5 mg Documented By: JAKOB Cyanocobalamin (Cyanocobalamin (Vitamin B-12) 1,000 Mcg/Ml Vial) 1,000 mcg IM ONCE MULUGETA Diphenhydramine HCl (Diphenhydramine Hcl 50 Mg/Ml Vial) 25 mg IVPUSH ONCE PRN PRN Reason: Infusion reaction Docusate Sodium (Docusate Sodium 100 Mg Capsule) 100 mg PO BEDTIME PRN PRN Reason: Constipation Piperacillin Sod/Tazobactam (Sod 3.375 gm/ Sodium Chloride) 50 mls @ 100 mls/hr IV Q8H [facility] Last Admin: 09/20/24 08:14 Dose: 100 mls/hr Documented By: COLTEN Potassium Chloride/Sodium Chloride (Kcl 40 Meq In 0.9 % Sodium Chl) 40 meq in 1,000 mls @ 125 mls/hr IVCONT .Q8H [facility] Last Admin: 09/20/24 08:16 Dose: 125 mls/hr Documented By: COLTEN Potassium Chloride (Potassium Chloride/H20) 10 meq in 100 mls @ 100 mls/hr IV Q1H [facility] Stop: 09/20/24 10:29 Melatonin (Melatonin 3 Mg Tablet) 3 mg PO BEDTIME MRX1 PRN PRN Reason: Sleep Last Admin: 09/19/24 21:45 Dose: 3 mg Documented By: JAKOB Pt Own (Levalbuterol Tartrate 45 Mcg/Actuation Hfa Aerosol Inhaler) 2 puff INHALE TID PRN PRN Reason: COPD Ondansetron HCl (Ondansetron Hcl 4 Mg/2 Ml Vial) 4 mg IVPUSH Q8H PRN PRN Reason: Nausea and Vomiting Pantoprazole Sodium (Pantoprazole Sodium 40 Mg/10 Ml Vial) 40 mg IVPUSH DAILY@0630 [facility] Last Admin: 09/20/24 05:45 Dose: 40 mg Documented By: JAKOB Polyethylene Glycol (Polyethylene Glycol 3350 17 Gm Powd.Pack) 17 gm PO DAILY [facility] Last Admin: 09/20/24 08:15 Dose: 17 gm Documented By: COLTEN Sodium Chloride (0.9 % Sodium Chloride Flush 3 Ml Syringe) 3 ml IVFLUSH QSHIFT [facility] Last Admin: 09/20/24 08:28 Dose: 3 ml Documented By: COLTEN Sodium Chloride (0.9 % Sodium Chloride Flush 10 Ml Syringe) 5 ml IVFLUSH ONCE PRN PRN Reason: Infusion Center Labs 09/20/24 05:43 09/20/24 05:43 Labs: Laboratory Results - last 24 hr 09/19/24 09/19/24 09/19/24 12:23 16:11 16:37 MCV 85.3 MCH 26.2 L MCHC 30.7 L RDW 17.2 H Plt Count 506 H MPV 8.7 L Immature Gran % (Auto) 0.3 Neut % (Auto) 71.2 Lymph % (Auto) 20.9 [place] % (Auto) 6.9 Eos % (Auto) 0.4 Baso % (Auto) 0.3 Lymph # (Auto) 2.7 [place] # (Auto) 0.9 Eos # (Auto) 0.1 Baso # (Auto) 0.0 Abs Immat Gran (auto) 0.04 H Absolute Neuts (auto) 9.1 H Absolute Nucleated RBC 0.000 Nucleated RBC % (auto) 0.0 Anion Gap 11 L Estim Creat Clear Calc 36.8 Estimated GFR 34 Random Glucose 170 H Calcium 8.7 D Magnesium 2.1 Total Bilirubin 0.3 AST 19 ALT 17 Alkaline Phosphatase 132 H Total Protein 7.9 Albumin 4.2 Lipase 30 Vitamin B12 329 Folate 12.7 Beta HCG, Quant < 2 Urine Color Yellow Urine Appearance Clear Urine pH 5.5 Ur Specific [place] 1.010 Urine Protein 100 (2+) H Urine Glucose (UA) 250 H Urine Ketones Negative Urine Blood Small (1+) H Urine Nitrite Negative Ur Leukocyte Esterase Negative Urine RBC 0-2 Urine WBC 0-5 Ur Squamous Epith Cells 3-5 Urine Bacteria None Seen Hyaline Casts 3-5 Granular Casts Present Blood Type A Positive Antibody Screen NEGATIVE Crossmatch See Detail 09/20/24 05:43 MCV 82.9 MCH 27.5 MCHC 33.1 RDW 17.1 H Plt Count 301 D MPV 9.4 Immature Gran % (Auto) 0.3 Neut % (Auto) 62.9 Lymph % (Auto) 27.5 [place] % (Auto) 8.4 Eos % (Auto) 0.6 Baso % (Auto) 0.3 Lymph # (Auto) 2.7 [place] # (Auto) 0.8 Eos # (Auto) 0.1 Baso # (Auto) 0.0 Abs Immat Gran (auto) 0.03 Absolute Neuts (auto) 6.1 Absolute Nucleated RBC 0.000 Nucleated RBC % (auto) 0.0 Anion Gap 10 L Estim Creat Clear Calc 57.6 Estimated GFR 57 Random Glucose 104 Calcium 7.2 L D Magnesium Total Bilirubin AST ALT Alkaline Phosphatase Total Protein Albumin Lipase Vitamin B12 Folate Beta HCG, Quant Urine Color Urine Appearance Urine pH Ur Specific [place] Urine Protein Urine Glucose (UA) Urine Ketones Urine Blood Urine Nitrite Ur Leukocyte Esterase Urine RBC Urine WBC Ur Squamous Epith Cells Urine Bacteria Hyaline Casts Granular Casts Blood Type Antibody Screen Crossmatch Procedures Date of Service Date of Service: 09/20/24 Progress Note: A&P Assessment and plan (1) Acute hypokalemia: Status: Acute Plan 1) Change IV fluids to normal saline with 40meq of KCl 2) 20meq of KCl bolus 3) IV iron 4) Interventional Radiology to reposition the drain 5) Continue IV antibiotics 6) Bed rest as much as possible Plan was discussed with the patient in detail and she is in agreement. Time Spent With Patient Time: Total time managing care of this patient today ____ minutes. Quality Stroke Does the patient have a stroke diagnosis?: No VTE Prior VTE?: No VTE Risk Level:: Medical - low VTE Device Contraindication: N/A - Device Ordered VTE Drug Contraindication: Treatment Not Indicated
[2024-09-20] MEDS: Potassium Chloride/H20 10 MEQ/100 ML PIGGYBACK 100 MEQ IV ×2 (09:36→10:45)
[2024-09-20] MEDS: clonazePAM 0.5 MG TABLET PO (10:35)
[2024-09-20] MEDS: Iron Sucrose Complex 200 MG/10 ML VIAL IVPUSH (12:52)
--- NOTE | 2024-09-20 13:41 | PC.NURSE ---
Approximately 1300- patient picked up for transport to IR.
--- NOTE | 2024-09-20 13:55 | PM.PROC ---
Brief Operative Note Date of procedure: 09/20/24 Pre-op diagnosis: Poorly draining abdominal wall drain, ? dislodged Post-op diagnosis: same Procedure: US abdominal wall drainage catheter exchanged. US demonstrates drainage catheter has partially dislodged, however, drain is still within seroma cavity. Drainage catheter exchanged under US with a new 10 fr catheter. 50 cc serosanguinous fluid aspirated with near resolution of the fluid collection. No immediate complications. Anesthesia: local
[2024-09-20] MEDS: Lidocaine HCl 1 % MPF 5 ML VIAL SUBCUT (14:18)
--- NOTE | 2024-09-20 14:50 | MHC.CM.PN ---
IMM DELIVERED PT LIVES WITH FAMILY. INDEPENDENT WITH MOBILITY. NO SERVICES BUT OPEN TO [facility] IF REQUESTED. FIRST CHOICE [facility]. DECLINES NAMING A HCP AT THIS TIME. PCP AT THE [facility]: HOME VS HOME WITH SERVICES, FIRST CHOICE [facility]. PT HAS OWN RIDE HOME. CM WILL CONTINUE TO FOLLOW FOR ANY CHANGE TO DC PLAN/NEEDS.
--- NOTE | 2024-09-20 16:38 | PC.NURSE ---
Pt states her K IV is burning, IV running without s/s infiltrate. Educated that medication is strong. Pt stated I'm going to rip out the IV. This senior technical writer educated the patient not to rip out IV. Primary RN notified.
--- NOTE | 2024-09-20 17:06 | PC.NURSE ---
Patient complaining of burning at IV site with [id number] 0.9% of NS. TESSA Rivera notified. Okayed to administer concurrent bag of 0.9% NS for patient comfort. IV site intact.
[2024-09-20 18:58] LABS: Anion Gap 9 (12-20); Blood Urea Nitrogen 7 mg/dL (9-16); Calcium 7.8 mg/dL (8.4-10.2); Carbon Dioxide 19 mmol/L (22-29); Chloride 116 mmol/L (96-108); Creatinine Clr Calc Pharmacy 51.2; Estimated Glomerular Filt Rate 50; Glucose Random 88 mg/dL (60-115); Potassium 3.2 mmol/L (3.3-5.1); Sodium 141 mmol/L (135-145)
[2024-09-20] MEDS: KCl 40 mEq in 0.9 % Sodium Chl 40 MEQ/1,000 ML IV.SOLN 100 MEQ IVCONT (19:09)
[2024-09-21] MEDS: Acetaminophen 325 MG TABLET 650 MG PO (02:53)
[2024-09-21] MEDS: Pantoprazole Sodium 40 MG/10 ML VIAL IVPUSH (05:37)
[2024-09-21] MEDS: KCl 40 mEq in 0.9 % Sodium Chl 40 MEQ/1,000 ML IV.SOLN 100 MEQ IVCONT ×2 (05:37→18:42)
[2024-09-21 06:46] LABS: MANUAL DIFF FLAG NO
[2024-09-21 06:49] LABS: Basophils Percent Auto 0.2 % (0-2); Eosinophils Absolute Auto 0.1 X10*3/uL (0.0-0.4); Eosinophils Percent Auto 0.8 % (0-4); Hematocrit 33.4 % (37.0-47.0); Hemoglobin 10.9 g/dl (12.0-16.0); Imm Gran Abs Auto 0.02 X10*3/uL (0.00-0.03); Imm Gran Pct Auto 0.2 % (0.0-0.4); Lymphocytes Absolute Auto 3.5 X10*3/uL (1.2-4.9); Lymphocytes Percent Auto 38.4 % (20-40); Mean Corpuscular HGB Conc 32.6 g/dl (31.0-35.0); Mean Corpuscular Hemoglobin 27.7 pg (27.0-33.0); Mean Platelet Volume 9.4 fL (9.4-12.3); Monocytes Absolute Auto 0.8 X10*3/uL (0.1-1.2); Monocytes Percent Auto 8.4 % (2-11); Neutrophils Absolute Auto 4.8 x10*3/uL (2.0-8.3); Platelet Count 392 X10*3/uL (160-400); Red Blood Count 3.93 X10*6/uL (4.20-5.50); White Blood Count 9.1 X10*3/uL (4.8-10.8)
[2024-09-21 07:10] LABS: Anion Gap 10 (12-20); Blood Urea Nitrogen 3 mg/dL (9-16); Calcium 7.9 mg/dL (8.4-10.2); Carbon Dioxide 18 mmol/L (22-29); Chloride 115 mmol/L (96-108); Creatinine Clr Calc Pharmacy 60.5; Estimated Glomerular Filt Rate > 60; Glucose Random 68 mg/dL (60-115); Potassium 3.1 mmol/L (3.3-5.1); Sodium 140 mmol/L (135-145)
[2024-09-21 07:26] VITALS: BP 113/78; PULSE 79; RESP 17; TEMP 36.9; O2SAT 99
--- NOTE | 2024-09-21 08:06 | P.PNGS_ITS ---
Subjective Subjective Date of Service: 09/21/24 Interval history: s/p abdominal wall fluid drainage yesterday. Initially she felt better but feels bloated since last night. However she was given regular diet and inappropriate salty foods. Potassium was low again today Physical Exam 2 Vital Signs: Vital Signs: Last Vital Signs Temp 98.4 F 09/21/24 07:26 Pulse 79 09/21/24 07:26 Resp 17 09/21/24 07:26 BP 113/78 09/21/24 07:26 Pulse Ox 99 09/21/24 07:26 O2 Del Method Room Air 09/21/24 07:26 BMI result Body Mass Index 26.4 GI: Inspection: Yes normal to inspection, Yes incision (well healed), Yes obesity and Yes other (drain with serosanguinous fluid) Palpation (GI): F irmness to palpation present (GI) (firmness along the midline below the umbilicus) Objective Data Active Medications Acetaminophen (Acetaminophen 325 Mg Tablet) 650 mg PO Q6H PRN PRN Reason: Pain, Mild (Pain Scale 1-3), fever or headache Last Admin: 09/21/24 02:53 Dose: 650 mg Documented By: JAKOB Buspirone HCl (Buspirone Hcl 5 Mg Tablet) 7.5 mg PO TID [facility] Last Admin: 09/20/24 20:49 Dose: 7.5 mg Documented By: JAKOB Clonazepam (Clonazepam 0.5 Mg Tablet) 0.5 mg PO BID PRN PRN Reason: Anxiety Last Admin: 09/20/24 10:35 Dose: 0.5 mg Documented By: COLTEN Cyanocobalamin (Cyanocobalamin (Vitamin B-12) 1,000 Mcg/Ml Vial) 1,000 mcg IM ONCE [facility] Diphenhydramine HCl (Diphenhydramine Hcl 50 Mg/Ml Vial) 25 mg IVPUSH ONCE PRN PRN Reason: Infusion reaction Docusate Sodium (Docusate Sodium 100 Mg Capsule) 100 mg PO BEDTIME PRN PRN Reason: Constipation Piperacillin Sod/Tazobactam (Sod 3.375 gm/ Sodium Chloride) 50 mls @ 100 mls/hr IV Q8H [facility] Last Infusion: 09/21/24 00:13 Dose: Infused Documented By: JAKOB Potassium Chloride/Sodium Chloride (Kcl 40 Meq In 0.9 % Sodium Chl) 40 meq in 1,000 mls @ 100 mls/hr IVCONT .Q10H [facility] Last Admin: 09/21/24 05:37 Dose: 100 mls/hr Documented By: JAKOB Potassium Chloride (Potassium Chloride/H20) 10 meq in 100 mls @ 100 mls/hr IV ONCE ONE Stop: 09/21/24 08:30 Melatonin (Melatonin 3 Mg Tablet) 3 mg PO BEDTIME MRX1 PRN PRN Reason: Sleep Last Admin: 09/19/24 21:45 Dose: 3 mg Documented By: JAKOB Pt Own (Levalbuterol Tartrate 45 Mcg/Actuation Hfa Aerosol Inhaler) 2 puff INHALE TID PRN PRN Reason: COPD Ondansetron HCl (Ondansetron Hcl 4 Mg/2 Ml Vial) 4 mg IVPUSH Q8H PRN PRN Reason: Nausea and Vomiting Pantoprazole Sodium (Pantoprazole Sodium 40 Mg/10 Ml Vial) 40 mg IVPUSH DAILY@0630 [facility] Last Admin: 09/21/24 05:37 Dose: 40 mg Documented By: JAKOB Polyethylene Glycol (Polyethylene Glycol 3350 17 Gm Powd.Pack) 17 gm PO DAILY [facility] Last Admin: 09/20/24 08:15 Dose: 17 gm Documented By: COLTEN Sodium Chloride (0.9 % Sodium Chloride Flush 3 Ml Syringe) 3 ml IVFLUSH QSHIFT [facility] Last Admin: 09/21/24 00:05 Dose: Not Given Documented By: JAKOB Non-Admin Reason: IV Running Sodium Chloride (0.9 % Sodium Chloride Flush 10 Ml Syringe) 5 ml IVFLUSH ONCE PRN PRN Reason: Infusion Center Labs 09/21/24 05:24 09/21/24 05:24 Labs: Laboratory Results - last 24 hr 09/20/24 09/21/24 17:56 05:24 MCV 85.0 MCH 27.7 MCHC 32.6 RDW 18.0 H Plt Count 392 D MPV 9.4 Immature Gran % (Auto) 0.2 Neut % (Auto) 52.0 Lymph % (Auto) 38.4 [place] % (Auto) 8.4 Eos % (Auto) 0.8 Baso % (Auto) 0.2 Lymph # (Auto) 3.5 [place] # (Auto) 0.8 Eos # (Auto) 0.1 Baso # (Auto) 0.0 Abs Immat Gran (auto) 0.02 Absolute Neuts (auto) 4.8 Absolute Nucleated RBC 0.000 Nucleated RBC % (auto) 0.0 Anion Gap 9 L 10 L Estim Creat Clear Calc 51.2 60.5 Estimated GFR 50 > 60 Random Glucose 88 68 Calcium 7.8 L D 7.9 L Procedures Date of Service Date of Service: 09/21/24 Progress Note: A&P Assessment and plan (1) Abdominal wall seroma: Status: Acute Plan 1) Repeat CT abdomen/pelvis without contrast to reassess drain position and fluid collection 2) 10 meq KCl x2 iv 3) D/C regular diet. Switch to phase 3 bariatric diet. Time Spent With Patient Time: Total time managing care of this patient today ____ minutes. Quality Stroke Does the patient have a stroke diagnosis?: No VTE Prior VTE?: No VTE Risk Level:: Medical - low VTE Device Contraindication: N/A - Device Ordered VTE Drug Contraindication: Treatment Not Indicated
[2024-09-21] MEDS: Piperacillin Sodium/Tazobactam 3.375 GM in 0.9 % Sodium Chloride 50 ML IV ×2 (08:35→15:25)
[2024-09-21] MEDS: busPIRone HCl 5 MG TABLET 7.5 MG PO ×3 (08:35→21:12)
[2024-09-21] MEDS: polyethylene glycoL 3350 17 GM POWD.PACK PO (08:37)
[2024-09-21] MEDS: clonazePAM 0.5 MG TABLET PO ×2 (08:45→21:23)
[2024-09-21] MEDS: Potassium Chloride/H20 10 MEQ/100 ML PIGGYBACK 100 MEQ IV (09:14)
--- NOTE | 2024-09-21 11:52 | MHC.CM.PN ---
PATIENT NOT MEDICALLY CLEARED FOR DC. NO CHANGE TO DC PLAN - HOME SELF CARE VS HOME W/ [facility] IF NEEDED. CM WILL CONTINUE TO FOLLOW.
[2024-09-21 15:07] VITALS: BP 117/68; PULSE 93; RESP 17; TEMP 36.9; O2SAT 99
[2024-09-21] MEDS: 0.9 % Sodium Chloride Flush 3 ML SYRINGE IVFLUSH (15:14)
[2024-09-21 17:07] LABS: Anion Gap 9 (12-20); Blood Urea Nitrogen 5 mg/dL (9-16); Calcium 7.9 mg/dL (8.4-10.2); Carbon Dioxide 17 mmol/L (22-29); Chloride 119 mmol/L (96-108); Creatinine Clr Calc Pharmacy 67.4; Estimated Glomerular Filt Rate > 60; Glucose Random 85 mg/dL (60-115); Potassium 3.6 mmol/L (3.3-5.1); Sodium 141 mmol/L (135-145)
[2024-09-21] MEDS: Melatonin 3 MG TABLET PO (21:32)
[2024-09-21 22:32] VITALS: BP 124/70
[2024-09-21] MEDS: Furosemide 20 MG/2 ML VIAL 10 MG IVPUSH (22:32)
[2024-09-21] MEDS: PEG 3350/Na Sulf,Bicarb,Cl/KCL 4,000 ML SOLN.RECON 240 ML PO ×6 (22:33→23:53)
[2024-09-21 23:34] VITALS: BP 117/78; PULSE 80; RESP 18; TEMP 36.9; O2SAT 100
[2024-09-22] MEDS: Piperacillin Sodium/Tazobactam 3.375 GM in 0.9 % Sodium Chloride 50 ML IV ×2 (00:05→08:01)
[2024-09-22] MEDS: 0.9 % Sodium Chloride Flush 3 ML SYRINGE IVFLUSH (01:10)
[2024-09-22] MEDS: KCl 40 mEq in 0.9 % Sodium Chl 40 MEQ/1,000 ML IV.SOLN 100 MEQ IVCONT (04:27)
--- NOTE | 2024-09-22 04:39 | PC.NURSE ---
Gavilyte Drink ordered and given as directed by MD orders, pt tolerated well. She was able to consume the prescribed 6 cups of 240ml, and then continued with just about half of the preparation. Patient passed urine fine and started with liquid clear stool as per pt and then able to pass a moderate amount light brown, elena colored soft stool. Patient stated to feel somewhat better and abdomen not as firm on left side. ivf, iv lasix, and ivabx all as ordered, no complaints of nausea, but start to feel some gi upset from the drink. DIANE drain intact LLQ and draining serosang drng, emptied for 5ml, dressing c-d-i at site. Will continue to monitor.
--- NOTE | 2024-09-22 04:55 | PC.NURSE ---
[id number]- Patient alerted this creative writer to say she had a large light brown soft stool at this time, will again continue to monitor
[2024-09-22] MEDS: Pantoprazole Sodium 40 MG/10 ML VIAL IVPUSH (06:14)
[2024-09-22 06:24] LABS: MANUAL DIFF FLAG NO
[2024-09-22 06:46] LABS: Anion Gap 9 (12-20); Blood Urea Nitrogen 7 mg/dL (9-16); Calcium 7.8 mg/dL (8.4-10.2); Carbon Dioxide 17 mmol/L (22-29); Chloride 120 mmol/L (96-108); Creatinine Clr Calc Pharmacy 68.2; Estimated Glomerular Filt Rate > 60; Glucose Random 75 mg/dL (60-115); Potassium 3.6 mmol/L (3.3-5.1); Sodium 142 mmol/L (135-145)
[2024-09-22 07:17] LABS: Basophils Percent Auto 0.4 % (0-2); Eosinophils Absolute Auto 0.1 X10*3/uL (0.0-0.4); Eosinophils Percent Auto 0.9 % (0-4); Hematocrit 32.8 % (37.0-47.0); Hemoglobin 10.5 g/dl (12.0-16.0); Imm Gran Abs Auto 0.02 X10*3/uL (0.00-0.03); Imm Gran Pct Auto 0.3 % (0.0-0.4); Lymphocytes Absolute Auto 3.1 X10*3/uL (1.2-4.9); Lymphocytes Percent Auto 39.6 % (20-40); Mean Corpuscular Hemoglobin 27.8 pg (27.0-33.0); Mean Corpuscular Volume 86.8 fL (80.0-98.0); Mean Platelet Volume 9.1 fL (9.4-12.3); Monocytes Absolute Auto 0.5 X10*3/uL (0.1-1.2); Monocytes Percent Auto 6.8 % (2-11); NRBC Pct Auto 0.3 /100WBC (0.0-0.2); Platelet Count 369 X10*3/uL (160-400); Red Blood Count 3.78 X10*6/uL (4.20-5.50); White Blood Count 7.8 X10*3/uL (4.8-10.8)
[2024-09-22 07:28] VITALS: BP 127/82; PULSE 84; RESP 18; TEMP 36.8; O2SAT 100
[2024-09-22] MEDS: busPIRone HCl 5 MG TABLET 7.5 MG PO (08:01)
[2024-09-22] MEDS: polyethylene glycoL 3350 17 GM POWD.PACK PO (08:01)
[2024-09-22 08:11] LABS: C Reactive Protein 0.58 mg/dL (< or = 0.50)
--- NOTE | 2024-09-22 08:18 | PM.DS ---
DS: Providers Provider Date of Service: 09/22/24 Date of admission: 09/19/24 15:18 Primary care physician: Unknown Physician DS: Diagnosis Discharge Diagnosis (1) Abdominal wall seroma: Status: Acute DS: Summary Hospital Course Hospital Course: Patient is a 48-year-old female who has a history panniculectomy on 06/1924. Due to series of circumstances her drain fell out prematurely, she developed a seroma requiring IR placement of catheter in August, this was also dislodged approximately 3 days prior to admission. She developed abdominal fullness and was found to have reaccumulation of fluid. She was admitted to the hospital for further care. While in the hospital, she had a new drain placed by Interventional Radiology with successful removal of approximately 50 cc of serosanguineous fluid. She additionally had difficulty with hypokalemia requiring potassium supplementation. She had constipation treated with a GoLYTELY prep with resolution. She has since shown improvement and is going to be discharged home with clear instructions to follow a very specific meal plan utilizing protein shakes, protein bars, fiber and stool softeners. Time Attestation Total time managing care of this patient today: 25 mintues. Discharge Coordination Time (in mins): 25 Quality: Safe Use of Opioids Does Pt have an Active Cancer Diagnosis on the Problem List?: No Quality: Stroke Does the patient have a stroke diagnosis?: No Physical Exam Vital Signs: Vital Signs: Last Vital Signs Temp 98.2 F 09/22/24 07:28 Pulse 84 09/22/24 07:28 Resp 18 09/22/24 07:28 BP 127/82 09/22/24 07:28 Pulse Ox 100 09/22/24 07:28 O2 Del Method Room Air 09/22/24 07:28 BMI result Body Mass Index 26.4 Const: General: cooperative, healthy appearing and no acute distress Orientation/consciousness: patient oriented x3 HEENT: Head: Yes normal to inspection Ears: hearing grossly normal bilaterally General nose exam: Normal external nose present Face and sinus: Yes normal facial exam Eyes: General: appearance normal, both eyes and all related structures Resp: Effort & Inspection: normal respiratory effort Auscultation: clear to auscultation bilaterally Cardio: Rate: regular rate Rhythm: regular rhythm Heart sounds: S1 normal heart sound present and S2 normal heart sound present GI: Other: Drain exiting from the lower left abdomen. Scant serous fluid within the collection bulb Inspection: Yes normal to inspection, No distended and Yes obesity Palpation (GI): Soft to palpation, nontender and no guarding Auscultation: normal bowel sounds Skin: General skin exam: no rashes or lesions noted Neuro: General: patient oriented x3 Extrem: General: No edema Psych: Appearance: grossly normal Mental Status: mental status grossly normal Speech and movement: Normal speech and movement present Affect: normal affect Attitude: cooperative DS: Data Data Completed and Pending Completed studies during hospitalization [Text1]: Procedures Drainage of Abdominal Wall with Drainage Device, Percutaneous Approach (08/07/24) Labs on day of discharge: Laboratory Results - last 24 hr 09/19/24 09/21/24 09/22/24 16:11 16:42 05:32 WBC 7.8 RBC 3.78 L Hgb 10.5 L Hct 32.8 L MCV 86.8 MCH 27.8 MCHC 32.0 RDW 19.0 H Plt Count 369 MPV 9.1 L Immature Gran % (Auto) 0.3 Neut % (Auto) 52.0 Lymph % (Auto) 39.6 [place] % (Auto) 6.8 Eos % (Auto) 0.9 Baso % (Auto) 0.4 Lymph # (Auto) 3.1 [place] # (Auto) 0.5 Eos # (Auto) 0.1 Baso # (Auto) 0.0 Abs Immat Gran (auto) 0.02 Absolute Neuts (auto) 4.0 Absolute Nucleated RBC 0.020 H Nucleated RBC % (auto) 0.3 H Sodium 141 142 Potassium 3.6 3.6 Chloride 119 H 120 H Carbon Dioxide 17 L 17 L Anion Gap 9 L 9 L BUN 5 L 7 L Creatinine 0.88 0.87 Estim Creat Clear Calc 67.4 68.2 Estimated GFR > 60 > 60 Random Glucose 85 75 Calcium 7.9 L 7.8 L C-Reactive Protein 0.58 H Crossmatch See Detail Discharge Plan Discharge Anticipated Discharge Date/Time: 09/22/24 14:00 Patient Disposition: Home, Self-Care Discharge Diagnosis: hypokalemia, dasha, abdominal pain Referrals: Physician,Unknown J [Primary Care Provider] - 1 Week Discharge Medications: New peg 3350-electrolytes [GaviLyte-G] [id number] -5.86 gram recon soln 240 ml PO Q10M Qty: 4000 0RF Rx Instructions: take as instructed by Dr Warren Metamucil 3.4 gram/5.4 gram powder 1 tbsp PO DAILY Qty: 660 0RF Rx Instructions: mix into at least 8 oz of water or juice before administering ciprofloxacin HCl 500 mg tablet 500 mg PO BID 30 Days Qty: 60 0RF Continued Fleet Bisacodyl 10 mg/30 mL enema 10 mg [place] DAILY PRN (Reason: constipation) Qty: 90 1RF melatonin 3 mg tablet 3 - 6 mg PO BEDTIME PRN (Reason: Sleep) buspirone 7.5 mg tablet 7.5 mg PO TID clonazepam 0.5 mg tablet 0.5 mg PO BID PRN (Reason: Anxiety) levalbuterol tartrate 45 mcg/actuation HFA aerosol inhaler 2 puff inhalation TID PRN (Reason: COPD) Changed docusate sodium [Dulcolax Stool Softener (dss)] 100 mg capsule 100 mg PO BID 90 Days Qty: 180 3RF Discontinued diclofenac sodium 75 mg tablet,delayed release (DR/EC) 75 mg PO DAILY Discharge Orders: Discharge Order (Routine); Ordered 09/22/24 Ordered By: Wilfrid Warren Activity on Discharge: No heavy lifting Stand Alone Forms: Patient Portal Discharge page Print Language: Turkmen Activity Restrictions/Additional Instructions: 1. Communicate by text with Dr. Warren as instructed. Send weight measurements weekly. Follow meal plan exactly. Send pictures of the plate of food that you prepared. 2. On October 06, go to [employer] and see which protein bars are covered by food stamps and look for 1 with a protein content of 12-15 g per bar and send a picture of this to Dr. Warren. 3. Purchase low-fat, unsweetened, 30 calorie almond milk to use as a liquid to mix your powdered protein shakes. 4. Be very careful to secure the tubing for the drain and use the safety pin to secure the collection bulb to your clothing. Avoid any tension in the tubing of the drain at the skin or between the tube and the drain bulb/ 5. Take the Colace and Metamucil daily WITHOUT STOPPING THEM and only use the GoLYTELY as needed using eight 8oz cups per day until you go. 6. It is very important to maintain weekly communication by text to prevent rehospitalization. 7. It is very important to be sure you follow-up and do not miss any of your appointments 8. You will have a follow-up appointment in our office with Levi Rivera on 09/26/24 at 11:00 am. 9. Please follow this nutritional plan exactly: 2oz of Equate shake mixed with 6oz almond milk at 9am-11am 2oz of Equate shake mixed with 6oz almond milk at 12pm-2pm 2oz of Equate shake mixed with 6oz almond milk at 3pm-5pm Dinner at 6pm: 6 forkfuls of meat or fish and 6 forkfuls of salad or vegetables 2oz of Equate shake mixed with 6oz almond milk at 8pm-10pm 10. Avoid salty foods especially soups, and pre-packaged processed foods. 11. Continue the Cipro daily. You should not stop it until the drain comes out. 12. Call the office for fever>101F, change in the color of the drain fluid, increasing abdominal pain, or swelling. 13. Take one multivitamin per day, daily. Care Plan Goals: Improved constipation and monitoring of drain output from abdominal seroma Health Concerns: Abdominal pain, hypokalemia, abdominal seroma Plan of Treatment: Instructions as above Assessment: Stable, status post potassium replacement, IV fluid hydration, re insertion of drain to abdominal seroma Discharge Date/Time: 09/22/24 14:00
--- NOTE | 2024-09-22 13:02 | P.PNGS_ITS ---
Subjective Subjective Date of Service: 09/22/24 Interval history: Feels better today. 8 cups of Golytely last night was adequate to relieve the constipation. The patient had several bowel movements. Less tension in the abdomen. Patient has more energy. CRP was 0.58. Physical Exam 2 Vital Signs: Vital Signs: Last Vital Signs Temp 98.2 F 09/22/24 07:28 Pulse 84 09/22/24 07:28 Resp 18 09/22/24 07:28 BP 127/82 09/22/24 07:28 Pulse Ox 100 09/22/24 07:28 O2 Del Method Room Air 09/22/24 07:28 BMI result Body Mass Index 26.4 GI: Inspection: Yes normal to inspection, Yes incision (well healed), Yes obesity and Yes other (drain with serosanguinous fluid) Palpation (GI): Soft to palpation (softer than yesterday) Objective Data Active Medications Acetaminophen (Acetaminophen 325 Mg Tablet) 650 mg PO Q6H PRN PRN Reason: Pain, Mild (Pain Scale 1-3), fever or headache Last Admin: 09/21/24 02:53 Dose: 650 mg Documented By: JAKOB Buspirone HCl (Buspirone Hcl 5 Mg Tablet) 7.5 mg PO TID [facility] Last Admin: 09/22/24 08:01 Dose: 7.5 mg Documented By: RUSS Clonazepam (Clonazepam 0.5 Mg Tablet) 0.5 mg PO BID PRN PRN Reason: Anxiety Last Admin: 09/21/24 21:23 Dose: 0.5 mg Documented By: RON Cyanocobalamin (Cyanocobalamin (Vitamin B-12) 1,000 Mcg/Ml Vial) 1,000 mcg IM ONCE [facility] Diphenhydramine HCl (Diphenhydramine Hcl 50 Mg/Ml Vial) 25 mg IVPUSH ONCE PRN PRN Reason: Infusion reaction Docusate Sodium (Docusate Sodium 100 Mg Capsule) 100 mg PO BEDTIME PRN PRN Reason: Constipation Piperacillin Sod/Tazobactam (Sod 3.375 gm/ Sodium Chloride) 50 mls @ 100 mls/hr IV Q8H [facility] Last Infusion: 09/22/24 08:36 Dose: Infused Documented By: RUSS Potassium Chloride/Sodium Chloride (Kcl 40 Meq In 0.9 % Sodium Chl) 40 meq in 1,000 mls @ 100 mls/hr IVCONT .Q10H [facility] Last Admin: 09/22/24 04:27 Dose: 100 mls/hr Documented By: RON Melatonin (Melatonin 3 Mg Tablet) 3 mg PO BEDTIME MRX1 PRN PRN Reason: Sleep Last Admin: 09/21/24 21:32 Dose: 3 mg Documented By: RON Pt Own (Levalbuterol Tartrate 45 Mcg/Actuation Hfa Aerosol Inhaler) 2 puff INHALE TID PRN PRN Reason: COPD Ondansetron HCl (Ondansetron Hcl 4 Mg/2 Ml Vial) 4 mg IVPUSH Q8H PRN PRN Reason: Nausea and Vomiting Pantoprazole Sodium (Pantoprazole Sodium 40 Mg/10 Ml Vial) 40 mg IVPUSH DAILY@0630 [facility] Last Admin: 09/22/24 06:14 Dose: 40 mg Documented By: RON Polyethylene Glycol (Polyethylene Glycol 3350 17 Gm Powd.Pack) 17 gm PO DAILY [facility] Last Admin: 09/22/24 08:01 Dose: 17 gm Documented By: RUSS Sodium Chloride (0.9 % Sodium Chloride Flush 3 Ml Syringe) 3 ml IVFLUSH QSHIFT [facility] Last Admin: 09/22/24 07:28 Dose: Not Given Documented By: RUSS Non-Admin Reason: IV Running Sodium Chloride (0.9 % Sodium Chloride Flush 10 Ml Syringe) 5 ml IVFLUSH ONCE PRN PRN Reason: Infusion Center Labs 09/22/24 05:32 09/22/24 05:32 Labs: Laboratory Results - last 24 hr 09/19/24 09/21/24 09/22/24 16:11 16:42 05:32 MCV 86.8 MCH 27.8 MCHC 32.0 RDW 19.0 H Plt Count 369 MPV 9.1 L Immature Gran % (Auto) 0.3 Neut % (Auto) 52.0 Lymph % (Auto) 39.6 [place] % (Auto) 6.8 Eos % (Auto) 0.9 Baso % (Auto) 0.4 Lymph # (Auto) 3.1 [place] # (Auto) 0.5 Eos # (Auto) 0.1 Baso # (Auto) 0.0 Abs Immat Gran (auto) 0.02 Absolute Neuts (auto) 4.0 Absolute Nucleated RBC 0.020 H Nucleated RBC % (auto) 0.3 H Anion Gap 9 L 9 L Estim Creat Clear Calc 67.4 68.2 Estimated GFR > 60 > 60 Random Glucose 85 75 Calcium 7.9 L 7.8 L C-Reactive Protein 0.58 H Crossmatch See Detail Procedures Date of Service Date of Service: 09/22/24 Progress Note: A&P Assessment and plan (1) Abdominal wall seroma: Status: Acute Assessment and Plan: 1. I explained to her how to care about the drain 2. Emphasized the importance of proper nutrition and to follow the plan I will provide today 3. She needs to send me weight measurements weekly Time Spent With Patient Time: Total time managing care of this patient today ____ minutes. Quality Stroke Does the patient have a stroke diagnosis?: No VTE Prior VTE?: No VTE Risk Level:: Medical - low VTE Device Contraindication: N/A - Device Ordered VTE Drug Contraindication: Treatment Not Indicated
--- NOTE | 2024-09-22 14:13 | MHC.CM.PN ---
Patient medically cleared for dc home self care, private transport
== END 2024-09-22 14:00 | disposition home or self-care (01) | DRG 920 ==
LOC: HO.ED 14:46 → HO.EDOVER 15:37 → HO.S3 19:27
PROVIDERS: Physician Assistant Medical; Surgery; Admitting Provider Physician Assistant Surgical; Emergency Provider Emergency Medicine; PCP Physician Assistant Medical; Visit Provider Physician Assistant Surgical
DX: T85.628A Displacement of other specified internal prosthetic devices, implants and grafts, initial encounter (principal); L76.34 Postprocedural seroma of skin and subcutaneous tissue following other procedure; N17.9 Acute kidney failure, unspecified; Y81.8 Miscellaneous general- and plastic-surgery devices associated with adverse incidents, not elsewhere classified; E87.6 Hypokalemia; K59.09 Other constipation; D64.9 Anemia, unspecified; Z87.891 Personal history of nicotine dependence; Z79.899 Other long term (current) drug therapy
CPT/HCPCS: 10030; 36415; 74176; 80048; 80053; 81001; 82607; 82746; 83690; 83735; 84702; 85025; 86140; 86850; 86900; 86901; 86923; 93005; 99285; J1756; J1940; J2003; J2470; J2543; J3411; J3480; P9016; Q4186

== ENCOUNTER → 2024-09-19 12:50 | Outpatient (BNV) | payer MEDICARE, SELFPAY | PROVIDERS: Admitting Provider Physician Assistant Surgical; Emergency Provider Emergency Medicine; Visit Provider Internal Medicine | DX: R94.31 Abnormal electrocardiogram [ECG] [EKG] (principal) | CPT/HCPCS: 93010 ==

== ENCOUNTER → 2024-09-19 15:18 | Outpatient (BNV) | payer MEDICARE, MEDICAID, SELFPAY | PROVIDERS: Admitting Provider Physician Assistant Surgical; Emergency Provider Emergency Medicine; Visit Provider Physician Assistant Surgical | DX: E87.6 Hypokalemia (principal) | CPT/HCPCS: 47536 ==

== ENCOUNTER → 2024-09-19 15:18 | Outpatient (BNV) | payer MEDICARE, SELFPAY | PROVIDERS: Admitting Provider Physician Assistant Surgical; Emergency Provider Emergency Medicine; Visit Provider Physician Assistant Surgical | DX: S30.1XXA Contusion of abdominal wall, initial encounter (principal); E87.6 Hypokalemia | CPT/HCPCS: 99222; 99232 ==

== ENCOUNTER 2024-10-10 10:35 | Outpatient (AMB) | payer MEDICARE, MEDICAID, SELFPAY ==
--- NOTE | 2024-10-10 10:38 | MHC.OFFVISWM ---
VS Expanded 10/10/24 10:40 Blood Pressure Location Lt brachial Blood Pressure Position Sitting Height 5 ft 1 in Weight 136 lb 6.4 oz BMI 25.8 Body Fat % 25.7 Body Fat Mass 35.0 Fat Free Mass 101.2 Visceral Fat Rating 5.0 Body Water % 52.9 Body Water Mass 72.0 Muscle Mass/Score 96.2 Basal Metabolic Rate/Score 1,350 Intake Visit Reasons: (OV) s/p Panniculectomy 06/23/24 Intake Note: Ashley presents in the office as a follow up Pannicuectomy. CC: Allergies oxycodone [From Percocet] Allergy (Severe, Verified 10/10/24 10:42) severe vomiting, dizziness HPI Comments Details: 48-year-old female who has a history panniculectomy on 06/1924. Due to series of circumstances her drain fell out prematurely, she developed a seroma requiring IR placement of catheter in August, this was also dislodged approximately 09/19/24. She developed abdominal fullness and was found to have reaccumulation of fluid. She was admitted to the hospital for further care 09/19/24-09/22/24. While in the hospital, she had a new drain placed by Interventional Radiology with successful removal of approximately 50 cc of serosanguineous fluid. She had not followed up in the office due to a series of circumstances at home since her discharge from the hospital. She returns today. She reports that she has had approximately 10 mL of fluid or less from the collection bulb on a daily basis. [facility] Medical History (Updated 09/30/24 @ 00:01 by Background Ernie) Pre-op evaluation Excess skin Regularly irregular pulse rhythym Anxiety GERD (gastroesophageal reflux disease) Former smoker Pulmonary embolism Right leg DVT Surgical History (Updated 09/30/24 @ 00:01 by Background Daemon) S/P panniculectomy Hx of section Hx of breast reduction, elective Hx of gastric bypass Family History Mother Diabetes Father No problems noted. Daughter No problems noted. Son No problems noted. Son Prediabetes Social History Household Members: Spouse Housing: Apartment Are you a primary resident care provider to a significant other at home: Yes (son 15 yr old) Do you presently have visiting nurse or other home services: No 75 years or older and lives alone: No Alcohol intake: never Patient Tobacco Use Status: Former Tobacco user Tobacco use type: Cigarette Second Hand Smoke Exposure: Yes service: No Physical Exam Vital Signs: BMI result Body Mass Index 25.8 GI Other: Approximately 10 mL of serosanguineous fluid within the collection bulb Palpation (GI): Soft to palpation and nontender Assessment & Plan Assessment & Plan (1) Seroma of skin or subcutaneous tissue after non-dermatologic procedure: Code(s): L76.34 - Postprocedural seroma of skin and subcutaneous tissue following other procedure Category: Medical Plan: Given patient's need for recurrent interventional procedures to place drain, we will maintain the drain for 1 more week, monitor output and potentially remove it next week. She has been encouraged to have 1-1/2 Premier protein shakes per day, ready to drink, split in 3 portions, and a meal with 4 forks of protein and 3 forks of vegetables
[2024-10-10 10:40] VITALS: BMI 25.8
== END 2024-10-10 11:22 | disposition home or self-care (01) ==
PROVIDERS: PCP Physician Assistant Medical; Visit Provider Physician Assistant Surgical
DX: L76.34 Postprocedural seroma of skin and subcutaneous tissue following other procedure (principal)
CPT/HCPCS: 99213

== ENCOUNTER → 2024-10-10 10:35 | Outpatient (BNVA) | payer MEDICARE, MEDICAID, SELFPAY | PROVIDERS: PCP Physician Assistant Medical; Visit Provider Physician Assistant Surgical | DX: L76.34 Postprocedural seroma of skin and subcutaneous tissue following other procedure (principal) | CPT/HCPCS: 99212 ==

== ENCOUNTER 2024-10-19 14:16 | Outpatient (AMB) | payer MEDICARE, MEDICAID, SELFPAY ==
[2024-10-19 14:24] VITALS: BP 120/72; PULSE 93; TEMP 36.3; O2SAT 100
--- NOTE | 2024-10-19 14:24 | A.OFFVIS_ITS ---
VS Expanded 10/19/24 14:24 BP 120/72 Blood Pressure Location Rt brachial Blood Pressure Position Sitting Pulse 93 Pulse Source Pulse Oximeter Temp 97.4 F Temperature Source Temporal Artery Scan Pulse Oximetry 100 Oxygen Delivery Method Room Air Intake Visit Reasons: (OV) s/p Panniculectomy 06/23/24 Allergies oxycodone [From Percocet] Allergy (Severe, Verified 10/19/24 14:25) severe vomiting, dizziness HPI Comments Details: 48-year-old female who has a history panniculectomy on 06/1924. Due to series of circumstances her drain fell out prematurely, she developed a seroma requiring IR placement of catheter in August, this was also dislodged approximately 09/19/24. She developed abdominal fullness and was found to have reaccumulation of fluid. She was admitted to the hospital for further care 09/19/24-09/22/24. While in the hospital, she had a new drain placed by Interventional Radiology with successful removal of approximately 50 cc of serosanguineous fluid. She had missed her appointment yesterday as she had over slept. She was able to be seen today. Reports 5 mL of serous fluid from the collection bulb on a daily basis. Would like to have it removed. Additionally reports constipation. [facility] Medical History (Updated 09/30/24 @ 00:01 by Dante Klein) Pre-op evaluation Excess skin Regularly irregular pulse rhythym Anxiety GERD (gastroesophageal reflux disease) Former smoker Pulmonary embolism Right leg DVT Surgical History S/P panniculectomy Hx of section Hx of breast reduction, elective Hx of gastric bypass Family History Mother Diabetes Father No problems noted. Daughter No problems noted. Son No problems noted. Son Prediabetes Social History Household Members: Spouse Housing: Apartment Are you a primary child day care provider to a significant other at home: Yes (son 15 yr old) Do you presently have visiting nurse or other home services: No 75 years or older and lives alone: No Alcohol intake: never Patient Tobacco Use Status: Former Tobacco user Tobacco use type: Cigarette Second Hand Smoke Exposure: Yes service: No Physical Exam Vital Signs: Last Vital Signs Temp 97.4 F 10/19/24 14:24 Pulse 93 10/19/24 14:24 BP 120/72 10/19/24 14:24 Pulse Ox 100 10/19/24 14:24 Oxygen Delivery Method Room Air 10/19/24 14:24 GI Inspection: Yes incision (Well healed.) Assessment & Plan Assessment & Plan (1) Abdominal wall seroma: Code(s): S30.1XXA - Contusion of abdominal wall, initial encounter Category: Medical Qualifiers: Encounter type: initial encounter Qualified Code(s): S30.1XXA - Contusion of abdominal wall, initial encounter Plan: Appears to have resolved. Drain was removed without difficulty. Dry clean dressing was placed. Told to leave the dressing in place for 48 hours. Return to the office as needed.
== END 2024-10-19 14:38 | disposition home or self-care (01) ==
PROVIDERS: PCP Physician Assistant Medical; Visit Provider Physician Assistant Surgical
DX: S30.1XXA Contusion of abdominal wall, initial encounter (principal)
CPT/HCPCS: 99213

== ENCOUNTER → 2024-10-19 14:16 | Outpatient (BNVA) | payer MEDICARE, MEDICAID, SELFPAY | PROVIDERS: PCP Physician Assistant Medical; Visit Provider Physician Assistant Surgical | DX: S30.1XXD Contusion of abdominal wall, subsequent encounter (principal); K59.00 Constipation, unspecified; X58.XXXD Exposure to other specified factors, subsequent encounter; Z98.890 Other specified postprocedural states | CPT/HCPCS: 99212 ==

== ENCOUNTER 2024-12-28 15:03 | Outpatient (AMB) | payer MEDICARE, MEDICAID, SELFPAY ==
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
[2024-12-28 15:13] VITALS: BP 119/82; PULSE 97; TEMP 36.4; BMI 25.8
--- OUTSIDE RECORDS SUMMARY | 2024-12-28 18:05 | XMS_ITS | Encounter Summary ---
Author Organization [facility] Address [address] [place] [address] Care Team Providers Care Panel Coverer Name Role Phone Wendy Wing PA-C Primary Care Provider + [phone] Encounter Details Date Type Department Care Team (Late st Contact Info) Description 06/15/2024 Interim Notes [facility] [address] [place] [phone] Cuauhtemoc Garcia, RN [address] [place] [address] Tuberculosis screening (Primary Dx) Social History Tobacco Use Types Packs/Day Years Used Date Smoking Tobacco: Former Cigarettes Q uit: 2021 Smokeless Tobacco: Never Comments:also vapes Alcohol Use Standard Drinks/Week Comments Never 0 (1 standard drink = 0.6 oz pur e alcohol) Social Connections Answer Date Recorded Connectedness 1 03/16/2024 Financial Resource Strain Answer Date R ecorded Financial Resource Strain 1 2023 Stress Answer Date Recorded Stress 1 03/16/2024 Physical Activity Answer Date Recorded Physical Activity 0 09/04/2021 Food Insecurity Answer Date Recorded Food 1 03/16/2024 Transportation Needs Answer Date Record ed Transportation 1 03/16/2024 Housing Stability Answer Date Recorded Housing 1 03/16/2024 Safety and Environment Answer Date Lazaro rded Safety 1 03/16/2024 Utilities Answer Date Recorded Utilities 1 03/16/2024 Employment Answer Date Recorded Stress 0 12/23/2021 Comments No Sex and Gender Information Value Date Recorded Sex Assigned at Female 09/11/2021 10:34 AM PST Legal Sex Female 1:04 PM PDT Gender Identity Female 09/11/2021 10:34 AM PST Sexual Orientation Straight 09/11/2021 10 :34 AM PST COVID-19 Exposure Response Date Recorded In the last 10 days, have marie u been in contact with someone who was confirmed or suspected to have Coronavirus/COVID-19? No / Unsure 05/30/2024 9:05 AM EDT documented as of this encounter Plan of Treatment Scheduled Orders Name Type Priority Associated Diagnoses Orde r Schedule QUANTIFERON-TB GOLD PLUS Lab Routine Tuberculosis screening 1 Occurrences starting 06/15/2024 until 12/12/2024 documented as of this encounter Visit Diagnoses Diagnosis Tuberculosis screening- Primary Screening examination for pulmonary tuberculosis documented in this encounter Additional Health Concerns Assessment Noted Time PHQ-9 Depression Total Score: 0 03/16/20 24 11:12 AM PDT documented as of this encounter Care Teams Panel Coverer Relationship Specialty Start Date End Date Wendy Wing PA-C [facility] [place] [address] PCP - General FAMILY MEDICINETESSA 05/08/22 documented as of this encounter
--- OUTSIDE RECORDS SUMMARY | 2024-12-28 18:05 | XMS_ITS | Encounter Summary ---
Author Organization [facility] Address [address] [place] [address] Care Team Providers Care Meat Loiner Name Role Phone Wendy Wing PA-C Primary Care Provider [phone] Encounter Details Date Type Department Care Team (Late st Contact Info) Description 03/13/2022 Dental Interim Note [facility] [address] [place] [address] Tania Romero, S [address] [place] [address] Social History Tobacco Use Types Packs/Day Years Used Date Smoking Tobacco: Former Cigarettes Q uit: 2021 Smokeless Tobacco: Never Comments:also vapes Alcohol Use Standard Drinks/Week Comments Never 0 (1 standard drink = 0.6 oz pur e alcohol) Social Connections Answer Date Recorded Social Connections and Isolation 1 12/10/2021 Financial Resource Strain Answer Date R ecorded Financial Resource Strain 1 2021 Stress Answer Date Recorded Stress 1 12/10/2021 Physical Activity Answer Date Recorded Physical Activity 0 09/04/2021 Food Insecurity Answer Date Recorded Food 1 12/10/2021 Transportation Needs Answer Date Record ed Transportation 1 12/10/2021 Housing Stability Answer Date Recorded Housing 2 12/10/2021 Safety and Environment Answer Date Lazaro rded Safety 1 12/10/2021 Utilities Answer Date Recorded Utilities 1 12/10/2021 Employment Answer Date Recorded Stress 0 12/23/2021 Comments No Sex and Gender Information Value Date Recorded Sex Assigned at Female 09/11/2021 10:34 AM PST Legal Sex Female 1:04 PM PDT Gender Identity Female 09/11/2021 10:34 AM PST Sexual Orientation Straight 09/11/2021 10 :34 AM PST COVID-19 Exposure Response Date Recorded In the last 10 days, have yo u been in contact with someone who was confirmed or suspected to have Coronavirus/COVID-19? No / Unsure 02/12/2022 1:19 PM EDT documented as of this encounter Plan of Treatment Not on file documented as of this encounter Visit Diagnoses Not on filedocumented in this encounter Additional Health Concerns Assessment Noted Time PHQ-9 Depression Total Score: 14 022 3:10 PM PST documented as of this encounter Care Teams Meat Loiner Relationship Specialty Start Date End Date Wendy Wing PA-C [address] [place] [address] PCP - General FAMILY MEDICINETESSA 05/08/22 documented as of this encounter
--- OUTSIDE RECORDS SUMMARY | 2024-12-28 18:05 | XMS_ITS | Encounter Summary ---
Author Organization [facility] Address [address] [place] [address] Care Team Providers Care Software Systems Analyst Name Role Phone Wendy Wing PA-C Primary Care Provider Encounter Details Date Type Department Care Team (Late st Contact Info) Description 03/01/2022 Dental Interim Note [facility] [address] [place] [phone] Aram Merissa Y [address] [place] [address] Social History Tobacco Use Types Packs/Day Years [...] documented as of this encounter Care Teams Software Systems Analyst Relationship Specialty Start Date End Date Wendy Wing PA-C [address] [place] [address] PCP - General FAMILY MEDICINETESSA 05/08/22 documented as of this encounter
--- OUTSIDE RECORDS SUMMARY | 2024-12-28 18:05 | XMS_ITS | Encounter Summary ---
Author Organization [facility] Address [address] [place] [address] Care Team Providers Care Wanigan Clerk Name Role Phone Wendy Wing PA-C Primary Care Provider Encounter Details Date Type Department Care Team (Late st Contact Info) Description 04/05/2022 Dental Interim Note [facility] [address] [place] [address] Tania Romero, S [address] [place] [address] Social History Tobacco Use Types Packs/Day Years [...] Orientation Straight 09/11/2021 10 :34 AM PST documented as of this encounter Plan of Treatment Not on file documented as of this encounter Visit Diagnoses Not on filedocumented in this encounter Additional Health Concerns Assessment Noted Time PHQ-9 Depression Total Score: 14 022 3:10 PM PST documented as of this encounter Care Teams Wanigan Clerk Relationship Specialty Start Date End Date Wendy Wing PA-C [address] [place] [address] PCP - General FAMILY MEDICINETESSA 05/08/22 documented as of this encounter
--- OUTSIDE RECORDS SUMMARY | 2024-12-28 18:05 | XMS_ITS | Encounter Summary ---
Author Organization [facility] Address [address] [place] [address] Care Team Providers Care Import And Export Clerk Name Role Phone Wendy Wing PA-C Primary Care Provider [phone] Encounter Details Date Type Department Care Team (Late st Contact Info) Description 03/24/2022 Dental Interim Note [facility] [address] [place] [phone] Tania Romero, [facility] [address] [place] [address] Social History Tobacco Use Types Packs/Day Years [...] documented as of this encounter Care Teams Import And Export Clerk Relationship Specialty Start Date End Date Wendy Wing PA-C [address] [place] [address] PCP - General FAMILY MEDICINETESSA 05/08/22 documented as of this encounter
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
--- OUTSIDE RECORDS SUMMARY | 2024-12-28 18:05 | XMS_ITS | Clinical Summary ---
Author Organization [facility] Address [address] [place] [address] Care Team Providers Care Ssis Developer Name Role Phone Wendy Wing PA-C Primary Care Provider Source Comments PLEASE NOTE, if this patient is a minor, it may be UNLAWFUL to discuss sensitive information that is contained in these records (such as FAMILY PLANNING, MENTAL HEALTH or SUBSTANCE ABUSE) with the minor patient's parent or other person without the patient's specific authorization.[facility] Allergies Active Allergy Reactions Criticality Noted Date Comments Oxycodone-Acetaminophen 11/26/2021 Medications buPROPion HCL (WELLBUTRIN XL) 150 mg 24 hr tablet Take 150 mg by mouth once daily Active oxybutynin chloride (DITROPAN) 5 mg tablet Take 5 mg by mouth once daily 05/16/20 21 Active ibuprofen 600 mg tablet Take 1 Tablet by mouth 4 (four) times daily as needed for pain 20 Tablet 09/20/20 21 Active clotrimazole 1 % vaginal creamIndication s:Vaginal discharge Place 1 Applicator vaginally nightly at bedtime 45 g 10/14/19 22 Active cholecalciferol , vitamin D3, 10 mcg (400 unit) tabletIndicatio ns:Vitamin D deficiency Take 10 mcg by mouth 05/21/20 21 Active doxycycline hyclate [address] tablet Take by mouth A ctive ibuprofen 800 mg tabletIndicatio ns:Pain, dental Take 1 Tablet by mouth 3 (three) times daily as needed for pain 15 Tablet 02/12/20 23 Active amoxicillin (AMOXIL) 500 mg capsuleIndicati ons:Pain, dental Take 1 Capsule by mouth 3 (three) times daily 21 Capsule 02/12/20 23 Active NFDB - BORIC ACID CAPSULESIndicat ions:Lisa glabrata infection Insert vaginally nightly before bed for 14 days; PLEASE DO NOT SWALLOW, VAGINAL USE ONLY, MAY BE FATAL IF INGESTED 14 Capsule 05/22/20 23 Active sennosides-docu sate sodium (AC-COLACE) 8.6-50 mg per tabletIndicatio ns:Slow transit constipation Take 1 Tablet by mouth once daily as needed for constipation 30 Tablet 1 03/01/20 24 Active gabapentin (NEURONTIN) 300 mg capsuleIndicati ons:Fibromyalgi a Take 1 Capsule by mouth daily. 30 Capsule 2 03/01/20 24 Active famotidine (PEPCID) 40 mg tabletIndicatio ns:H/O gastric bypass Take 1 Tablet by mouth once daily 90 Tablet 1 03/01/20 24 Active clonazePAM (KLONOPIN) 0.5 mg tabletIndicatio ns:Anxiety,Anxi ety and depression Take 1 Tablet by mouth 3 (three) times daily as needed for anxiety for up to 10 days 30 Tablet 03/03/20 24 Active melatonin 3 mg tablet TAKE ONE-TWO (1-2) TABLETS BY MOUTH EVERY EVENING 11/17/19 24 Active busPIRone (BUSPAR) 5 mg tabletIndicatio ns:Anxiety and depression,Anxi ety TAKE 1 TABLET BY MOUTH TWICE A DAY 180 Tablet 1 05/20/20 24 Active levalbuterol tartrate (XOPENEX HFA) 45 mcg/actuation inhalerIndicati ons:Mild intermittent asthma without complication INHALE 1 PUFF INTO THE LUNGS EVERY 6 HOURS NEEDED FOR SHORTNESS OF BREATH OR WHEEZING 15 g 2 06/19/20 24 Active doxepin (SINEQUAN) 50 mg capsuleIndicati ons:Anxiety and depression TAKE 1 CAPSULE BY MOUTH NIGHTLY AT BEDTIME. 90 Capsule 1 12/20/19 25 Active diclofenac sodium (VOLTAREN) [address] tabletIndicatio ns:Fibromyalgia ,Rheumatoid arthritis, involving unspecified site, unspecified whether rheumatoid factor present ([facility]) TAKE 1 TABLET BY MOUTH TWICE A DAY 60 Tablet 5 12/27/19 25 Active diclofenac sodium (VOLTAREN) [address] tabletIndicatio ns:Fibromyalgia ,Rheumatoid arthritis, involving unspecified site, unspecified whether rheumatoid factor present ([facility]) Take 1 Tablet by mouth 2 (two) times daily 60 Tablet 5 03/03/20 24 2024 Discontinued doxepin (SINEQUAN) 50 mg capsuleIndicati ons:Anxiety and depression TAKE 1 CAPSULE BY MOUTH NIGHTLY AT BEDTIME. 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 05/14/2021 Immunizations Immunization Administration Dates Next Due Flu, Preservative Free 06/15/2023 Moderna COVID-19 Vaccine, re d cap blue label, 12+ Primary Series 05/21/2022,05/23/2021 PNEUMOCOCCAL CONJUGATE PCV 20 (Prevnar) 03/16/20 24 TDAP 03/16/2024,05/21/2017 Social History Tobacco Use Types Packs/Day Years Used Date Smoking Tobacco: Former Cigarettes Q uit: 2021 Smokeless Tobacco: Never Tobacco Cessation:Counseling Given: Not Answered Comments:also vapes Alcohol Use Standard Drinks/Week Comments [...] Orientation Straight 09/11/2021 10 :34 AM PST Last Filed Vital Signs Vital Sign Reading Time Taken Comments Blood Pressure 119/72 08/26/2024 10:15 AM EST Pulse 56 08/26/2024 10:15 AM EST Temperature 36.7 ??C (98 ??F) 03/16/2024 11:14 AM EDT Respiratory Rate 14 06/15/2023 11:10 AM EDT Oxygen Saturation 99% 06/15/2023 11:10 AM EDT Inhaled Oxygen Concentration - - Weight 67 kg (147 lb 9.6 oz) 03/16/2024 11:14 AM EDT Height 154.9 cm (5' 1 ) 06/15/2023 11:10 AM EDT Body Mass Index 27.89 06/15/2023 11:10 AM EDT Plan of Treatment Health Maintenance Due Date Last Done Comments Anxiety Screening 1976 HPV Screening 1976 Pap + HPV 1976 Imm-Hepatitis B (1 of 3 - 19 + 3-dose series) 1995 Cervical Cancer Screening 1997 Pap Smear 1997 Breast Cancer Screening (Mammogram) 2016 CT Colonography 2021 Colonoscopy 2021 Colorectal Cancer Screening 2021 FIT/gFOBT 2021 Fecal DNA 2021 Flexible Sigmoidoscopy 2021 Dental BW 03/18/2024 03/16/2023, 06/26/2022 Dental Examination 03/18/2024 03/16/2023, 06/26/2022 Dental Perio Charting 03/18/2024 03/16/2023 Dental Prophy 03/18/2024 03/16/2023 [id number] ( season) 2024 02/19/2024, 05/21/2022, 05/23/2021 Imm-Influenza (#1) 2024 06/15/2023 Annual Preventive Care Visit 06/15/2024 06/15/2023 Depression Monitoring 06/16/2024 03/16/2024 , 06/15/2023, 09/08/2022, Additional history exists Alcohol and Drug Screen 10/05/2024 03/16/20 24, 06/15/2023, 09/08/2022, Additional history exists Relationship Safety Screening/Counseling 03/16/2025 03/16/2024, 06/15/2023, 09/08/2022, Additional history exists Tobacco Screening 03/16/2025 03/16/2024 Hypertension Screening (#1) 08/26/2025 Diabetes Screening 06/17/2026 06/17/2023, 05/15/2021 Dental FMX/Pano 11/24/2027 11/22/2022 Lipid Screening 06/17/2028 06/17/2023, 05/15/2021 Imm-DTaP/Tdap/Td (3 - Td or Tdap) 03/16/2034 024, 05/21/2017 HIV Screening Completed 12/31/2022, 09/09/2022 Hepatitis C Screening Completed 06/17/2023 Imm-Pneumococcal Completed 03/16/2024 Cervical Ablation/Cold-Knife Conization Discontinued Cervical Cryotherapy Discontinued Colposcopy Discontinued Endometrial Biopsy Discontinued Excision/Leep Discontinued HPV Genotyping Discontinued Vaginal Pap Discontinued Vulvoscopy Discontinued Procedures Procedure Name Priority Date/Time Associated Diagnosis Comments HEALTH HISTORY SCANNED DOCUMENT 10/24/2024 3:00 AM EST REFERRAL SCANNED DOCUMENT 10/19/2024 3:00 AM EST REFERRAL SCANNED DOCUMENT 10/10/2024 3:00 AM EST HEPATITIS C AB W/RFLX HCV RNA, QT, RT PCR Routine 06/17/2023 3:18 PM EDT Exposure to potential infection Other problems related to lifestyle COMPREHENSIVE METABOLIC PANEL Routine 06/17/2023 3:18 PM EDT Rheumatoid arthritis involving multiple sites, unspecified whether rheumatoid factor present ([facility]) LIPIDS W RFLX TO DIRECT LDL Routine 06/17/2023 3:18 PM EDT Routine general medical examination at a health care facility COMP PERIODONTAL EVALUATION - NEW/EST PATIENT Routine 03/16/2023 9:40 AM EDT Encounter for dental examination BITEWINGS - FOUR RADIOGRAPHIC IMAGES Routine 03/16/2023 9:40 AM EDT Encounter for dental examination PROPHYLAXIS - ADULT Routine 03/16/2023 9 :40 AM EDT Encounter for dental examination PERIODIC ORAL EVALUATION ESTABLISHED PATIENT Routine 03/16/2023 9:40 AM EDT Encounter for dental examination HIV 1/2 AG & AB W/RFLX (4TH GEN) Routine 12/31/2022 9:11 AM EDT Possible exposure to STD PANORAMIC RADIOGRAPHIC IMAGE Routine 11/22/2022 9:00 AM EST Dental caries extending into pulp from Last 3 Months or Most Recently Relevant to Health Maintenance Results * HEALTH HISTORY SCANNED DOCUMENT (10/24/2024 3:00 AM EST) 10/24/2024 3:00 AM EST [facility] Provider Default SCAN OTHER ORDERS Final Re sult * REFERRAL SCANNED DOCUMENT (10/19/2024 3:00 AM EST) Only the most recent of2 resultswithin the time period is included. 10/19/2024 3:00 AM EST Wendy Wing PA-C SCAN REFERRAL Final Result * HEPATITIS C AB W/RFLX HCV RNA, QT, RT PCR (06/17/2023 3:18 PM EDT) HEPATITIS C ANTIBODY NON-REACT FREDDIE NON-REACT FREDDIE [email or web address] Comment: HCV antibody was non-reactive. There is no laboratory evidence of HCV infection. In most cases, no further action is required. However, if recent HCV exposure is suspected, a test for HCV RNA (test code 90599) is suggested. For additional information please refer to http://education.Photos to Photos/faq/LMC56u1 (This link is being provided for informational/ educational purposes only.) Blood Blood / Unknown 06/17/2023 3 :18 PM EDT 06/17/2023 3:26 PM EDT us Kyree Jim MD LAB - BLOOD DRAW Edited Resu lt - Final Performing Organization Address [facility] Co de Phone Number [email or web address] [address] [address], [email or web address] [address] [address] * (ABNORMAL) LIPIDS W RFLX TO DIRECT LDL (06/17/2023 3:18 PM EDT) CHOLESTEROL, TOTAL 208(H) <200 mg/dL [email or web address] HDL CHOLESTEROL 72 > OR = 50 mg/dL [email or web address] TRIGLYCERIDES 140 <150 mg/dL [email or web address] LDL-CHOLESTEROL 111(H) 99 mg/dL (calc) [email or web address] Comment: Reference range: <100 Desirable range <100 mg/dL for primary prevention; ?? <70 mg/dL for patients with CHD or diabetic patients with > or = 2 CHD risk factors. LDL-C is now calculated using the Maik-Cade calculation, which is a validated novel method providing better accuracy than the Friedewald equation in the estimation of LDL-C. Maik SS et al. IVONE. 2013;310(19): 0962-1933 (http://education.[employer]/faq/OUC372) CHOL/HDLC RATIO 2.9 <5.0 (calc) [facility] NON-HDL CHOLESTEROL 136(H) <130 mg/dL (calc) [facility] Comment: For patients with diabetes plus 1 major ASCVD risk factor, treating to a non-HDL-C goal of <100 mg/dL (LDL-C of <70 mg/dL) is considered a therapeutic option. Blood Blood / Unknown 06/17/2023 3 :18 PM EDT 06/17/2023 3:26 PM EDT us Kyree Jim MD LAB - BLOOD DRAW Final Resul t Performing Organization Address [facility]/ZIP Co de Phone Number [facility] [address] [address], [email or web address] [address] [place] [address] * (ABNORMAL) COMPREHENSIVE METABOLIC PANEL (06/17/2023 3:18 PM EDT) GLUCOSE 146(H) 65 - 99 mg/dL [facility] Comment: ?Fasting reference interval For someone without known diabetes, a glucose value >125 mg/dL indicates that they may have diabetes and this should be confirmed with a follow-up test. UREA NITROGEN (BUN) 11 7 - 25 mg/dL [facility] CREATININE (blood) 0.90 0.50 - 0.99 mg/dL [facility] EGFR 80 > OR = 60 mL/min/1. 73m2 [facility] BUN/CREATININE RATIO SEE NOTE: [facility] Comment: ?? Not Reported: BUN and Creatinine are within ?? reference range. ? SODIUM 137 135 - 146 mmol/L [facility] POTASSIUM 3.9 3.5 - 5.3 mmol/L [facility] CHLORIDE 107 98 - 110 mmol/L [facility] CARBON DIOXIDE 21 20 - 32 mmol/L [facility] CALCIUM 8.9 8.6 - 10.2 mg/dL [facility] PROTEIN, TOTAL 7.1 6.1 - 8.1 g/dL [facility] ALBUMIN 4.5 3.6 - 5.1 g/dL [facility] GLOBULIN 2.6 1.9 - 3.7 g/dL (calc) [facility] ALBUMIN/GLOBULI N RATIO 1.7 1.0 - 2.5 (calc) [facility] BILIRUBIN, TOTAL 0.3 0.2 - 1.2 mg/dL [facility] ALKALINE PHOSPHATASE 78 31 - 125 U/L [facility] AST 16 10 - 35 U/L [facility] ALT 18 6 - 29 U/L [facility] Blood Blood / Unknown 06/17/2023 3 :18 PM EDT 06/17/2023 3:26 PM EDT Kyree Jim MD LAB - BLOOD DRAW Edited Resu lt - Final Performing Organization Address [facility] de Phone Number [email or web address] [address] [address], [email or web address] [address] [address] * HIV 1/2 AG & AB W/RFLX (4TH GEN) (12/31/2022 9:11 AM EDT) HIV AG/AB, 4TH GEN NON-REAC TIVE NON-REAC TIVE [email or web address] Comment: HIV-1 antigen and HIV-1/HIV-2 antibodies were not detected. There is no laboratory evidence of HIV infection. PLEASE NOTE: This information has been disclosed to you from records whose confidentiality may be protected by state law. ??If your state requires such protection, then the state law prohibits you from making any further disclosure of the information without the specific written consent of the person to whom it pertains, or as otherwise permitted by law. A general authorization for the release of medical or other information is NOT sufficient for this purpose. ?? For additional information please refer to http://education.Photos to Photos/faq/CNH682 (This link is being provided for informational/ educational purposes only.) The performance of this assay has not been clinically validated in patients less than 2 years old. Blood Blood / Unknown 12/31/2022 9 :11 AM EDT 12/31/2022 9:11 AM EDT Jordana Torres [facility] LAB - BLOOD DRAW Final Re sult Performing Organization Address [facility] Co de Phone Number [email or web address] [address] [address], [email or web address] [address] [phone] from Last 3 Months or Most Recently Relevant to Health Maintenance [place] Care Teams Ssis Developer Relationship Specialty Start Date End Date Wendy Wing PA-C [facility] [place] [address] PCP - General FAMILY MEDICINETESSA 05/08/22
--- OUTSIDE RECORDS SUMMARY | 2024-12-28 18:05 | XMS_ITS | Encounter Summary ---
Author Organization [facility] Address [address] [place] [address] Care Team Providers Care Test Tech Name Role Phone Wendy Wing PA-C Primary Care Provider Encounter Details Date Type Department Care Team (Late st Contact Info) Description 03/28/2022 Dental Interim Note [facility] [address] [place] [address] Theresa Pardo, [facility] [address] [place] [address] Social History Tobacco Use Types Packs/Day Years [...] documented as of this encounter Care Teams Test Tech Relationship Specialty Start Date End Date Wendy Wing PA-C [address] [place] [address] PCP - General FAMILY MEDICINETESSA 05/08/22 documented as of this encounter
== END 2024-12-28 15:41 | disposition home or self-care (01) ==
LOC: HO.HBS 15:04
PROVIDERS: PCP Physician Assistant Medical; Visit Provider Physician Assistant Surgical
DX: R10.9 Unspecified abdominal pain (principal)
CPT/HCPCS: 99214; G2211

== ENCOUNTER → 2024-12-28 15:03 | Outpatient (BNVA) | payer MEDICARE, MEDICAID, SELFPAY | PROVIDERS: PCP Physician Assistant Medical; Visit Provider Physician Assistant Surgical | DX: R10.9 Unspecified abdominal pain (principal); Z98.890 Other specified postprocedural states | CPT/HCPCS: 99212 ==

== ENCOUNTER 2025-01-03 14:05 | Outpatient (AMB) | payer MEDICARE, MEDICAID, SELFPAY ==
[2025-01-03 14:07] VITALS: BP 114/75; PULSE 101; BMI 26.7
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
--- OUTSIDE RECORDS SUMMARY | 2025-01-03 16:51 | XMS_ITS | Clinical Summary ---
Author Organization [facility] Address [address] [place] [address] Care Team Providers Care Asphalt Mixing Machine Operator Name Role Phone Wendy Wing PA-C Primary Care Provider [phone] Source Comments PLEASE NOTE, if this patient [...] mcg/actuation inhalerIndicati ons:Mild intermittent asthma without complication ([facility]) INHALE 1 PUFF INTO THE LUNGS EVERY 6 HOURS NEEDED FOR SHORTNESS OF BREATH OR WHEEZING 15 g 2 06/19/20 24 Active doxepin (SINEQUAN) 50 mg capsuleIndicati ons:Anxiety and depression TAKE 1 CAPSULE BY MOUTH NIGHTLY AT BEDTIME. 90 Capsule 1 12/20/19 25 Active diclofenac sodium (VOLTAREN) [address] tabletIndicatio ns:Fibromyalgia ,Rheumatoid arthritis, involving unspecified site, unspecified whether rheumatoid factor present ([facility]) TAKE 1 TABLET BY MOUTH TWICE A DAY 60 Tablet 5 12/27/19 25 Active diclofenac sodium (VOLTAREN) [address] tabletIndicatio ns:Fibromyalgia ,Rheumatoid arthritis, involving unspecified site, unspecified whether rheumatoid factor present ([facility]) Take 1 Tablet by mouth 2 (two) [...] recurrent major depressive disorder, without psychotic features ([facility]) 12/10/2021 Other spondylosis, lumbar region 12/10/2021 Fibromyalgia [...] 06/15/2023 11:10 AM EDT Plan of Treatment Upcoming Encounters Date Type Department Care Team (Late st Contact Info) Description 02/01/2025 10:20 AM EDT Office Visit [facility] [address] [place] [address] Wendy Wing PA-C [address] [place] [address] Health Maintenance Due Date Last Done Comments [...] Charting 03/18/2024 03/16/2023 Dental Prophy 03/18/2024 03/16/2023 Imm-Influenza (#1) 2024 06/21/2024, 06/15/2023 Annual Preventive Care Visit 06/15/2024 06/15/2023 Depression Monitoring 06/16/2024 03/16/2024 , 06/15/2023, 09/08/2022, Additional history exists Alcohol and Drug Screen 10/05/2024 03/16/20 24, 06/15/2023, 09/08/2022, Additional history exists Relationship Safety Screening/Counseling 03/16/2025 03/16/2024, 06/15/2023, 09/08/2022, Additional history exists Tobacco Screening 03/16/2025 03/16/2024 Hypertension Screening (#1) 08/26/2025 Diabetes Screening 06/17/2026 06/17/2023, 0 05/15/2021, 05/15/2021, Additional history exists Dental FMX/Pano 11/24/2027 11/22/2022 Lipid Screening 06/17/2028 06/17/2023, 05/15/2021 Imm-DTaP/Tdap/Td (3 - Td or Tdap) 03/16/2034 024, 05/21/2017 HIV Screening Completed 12/31/2022, 09/09/2022 Hepatitis C Screening Completed 06/17/2023 Imm-Pneumococcal Completed 03/16/2024 [id number] Completed 06/21/2024, 02/02, 05/21/2022, Additional history exists Cervical Ablation/Cold-Knife Conization Discontinued Cervical Cryotherapy Discontinued Colposcopy Discontinued Endometrial Biopsy Discontinued Excision/Leep Discontinued HPV Genotyping Discontinued Vaginal Pap Discontinued Vulvoscopy Discontinued Procedures Procedure Name Priority Date/Time Associated Diagnosis Comments REFERRAL SCANNED DOCUMENT 12/28/2024 3:00 AM EDT HEALTH HISTORY SCANNED DOCUMENT 10/24/2024 3:00 AM EST REFERRAL SCANNED DOCUMENT 10/19/2024 3:00 AM EST REFERRAL SCANNED DOCUMENT 10/10/2024 3:00 AM EST HEPATITIS C AB W/RFLX HCV RNA, QT, RT PCR Routine 06/17/2023 3:18 PM EDT Exposure to potential infection Other problems related to lifestyle COMPREHENSIVE METABOLIC PANEL Routine 06/17/2023 3:18 PM EDT Rheumatoid arthritis involving multiple sites, unspecified whether rheumatoid factor present ([facility]) LIPIDS W RFLX TO DIRECT LDL Routine 06/17/2023 3:18 PM EDT Routine general medical examination at a [facility] COMP PERIODONTAL EVALUATION - NEW/EST PATIENT Routine [...] Recently Relevant to Health Maintenance Results * REFERRAL SCANNED DOCUMENT (12/28/2024 3:00 AM EDT) Only the most recent of3 resultswithin the time period is included. 12/28/2024 3:00 AM EDT Wendy Wing PA-C SCAN REFERRAL Final Result * HEALTH HISTORY SCANNED DOCUMENT (10/24/2024 3:00 AM EST) 10/24/2024 3:[address] [facility] Provider Default SCAN OTHER ORDERS Final Re sult * HEPATITIS C AB W/RFLX HCV RNA, QT, RT PCR (06/17/2023 3:18 PM EDT) HEPATITIS C ANTIBODY NON-REACT FREDDIE NON-REACT FREDDIE [facility] Comment: HCV antibody was non-reactive. There is no laboratory evidence of HCV infection. In most cases, no further action is required. However, if recent HCV exposure is suspected, a test for HCV RNA (test code 08862) is suggested. For additional information please refer to http://NanoVasc.Hipcricket/faq/TOB60r9 (This link is being provided for informational/ educational purposes only.) Blood Blood / Unknown 06/17/2023 3 :18 PM EDT 06/17/2023 3:26 PM EDT Kyree Jim MD LAB - BLOOD DRAW Edited Resu lt - Final [facility] [address] [address], [employer] [address] [address] * (ABNORMAL) LIPIDS W RFLX TO DIRECT LDL (06/17/2023 3:18 PM EDT) Pathologist [facility] CHOLESTEROL, TOTAL 208(H) <200 mg/dL [facility] [facility] HDL CHOLESTEROL 72 > OR = 50 mg/dL [employer] [facility] TRIGLYCERIDES 140 <150 mg/dL [facility] LDL-CHOLESTEROL 111(H) 99 mg/dL (calc) [employer] [facility] Comment: Reference range: <100 Desirable range <100 mg/dL for primary prevention; ?? <70 mg/dL for patients with CHD or diabetic patients with > or = 2 CHD risk factors. LDL-C is now calculated using the Maik-Alyssia calculation, which is a validated novel method providing better accuracy than the Friedewald equation in the estimation of LDL-C. Maik SS et al. IVONE. 2013;310(19): 4281-9609 (http://NanoVasc.hField Technologies/faq/SEZ197) CHOL/HDLC RATIO 2.9 <5.0 (calc) [employer] NON-HDL CHOLESTEROL 136(H) <130 mg/dL (calc) [employer] [facility] Comment: For patients with diabetes plus 1 major ASCVD risk factor, treating to a non-HDL-C goal of <100 mg/dL (LDL-C of <70 mg/dL) is considered a therapeutic option. Blood Blood / Unknown 06/17/2023 3 :18 PM EDT 06/17/2023 3:26 PM EDT Kyree Jim MD LAB - BLOOD DRAW Final Resul t [facility] [address] [address], [employer] [address] [place] [address] * (ABNORMAL) COMPREHENSIVE METABOLIC PANEL (06/17/2023 3:18 PM EDT) [facility] GLUCOSE 146(H) 65 - 99 mg/dL [employer] Comment: ?Fasting reference interval For someone without known diabetes, a glucose value >125 mg/dL indicates that they may have diabetes and this should be confirmed with a follow-up test. UREA NITROGEN (BUN) 11 7 - 25 mg/dL [employer] CREATININE (blood) 0.90 0.50 - 0.99 mg/dL [employer] EGFR 80 > OR = 60 mL/min/1. 73m2 [employer] BUN/CREATININE RATIO SEE NOTE: [employer] [facility] Comment: ?? Not Reported: BUN and Creatinine are within ?? reference range. ? SODIUM 137 135 - 146 mmol/L [employer] POTASSIUM 3.9 3.5 - 5.3 mmol/L [employer] [facility] CHLORIDE 107 98 - 110 mmol/L [employer] CARBON DIOXIDE 21 20 - 32 mmol/L [employer] CALCIUM 8.9 8.6 - 10.2 mg/dL [employer] PROTEIN, TOTAL 7.1 6.1 - 8.1 g/dL [employer] ALBUMIN 4.5 3.6 - 5.1 g/dL [employer] GLOBULIN 2.6 1.9 - 3.7 g/dL (calc) [employer] ALBUMIN/GLOBULI N RATIO 1.7 1.0 - 2.5 (calc) [employer] [facility] BILIRUBIN, TOTAL 0.3 0.2 - 1.2 mg/dL [facility] ALKALINE PHOSPHATASE 78 31 - 125 U/L [facility] AST 16 10 - 35 U/L [facility] ALT 18 6 - 29 U/L [facility] Blood Blood / Unknown 06/17/2023 3 :18 PM EDT 06/17/2023 3:26 PM EDT Kyree Jim MD LAB - BLOOD DRAW Edited Resu lt - Final Performing Organization Address [facility] Co de Phone Number [facility] [address] [address], [facility] [address] [address] * HIV 1/2 AG & AB W/RFLX (4TH GEN) (12/31/2022 9:11 AM EDT) HIV AG/AB, 4TH GEN NON-REAC TIVE NON-REAC TIVE [facility] Comment: HIV-1 antigen and HIV-1/HIV-2 antibodies were [...] ?? For additional information please refer to http://education.Acer.Beyond Alpha/faq/EXX328 (This link is being provided for informational/ educational purposes only.) The performance of this assay has not been clinically validated in patients less than 2 years old. Blood Blood / Unknown 12/31/2022 9 :11 AM EDT 12/31/2022 9:11 AM EDT Jordana EDENP-BC LAB - BLOOD DRAW Final Re sult [facility] [address] [address], [facility] [address] [place] [address] from Last 3 Months or Most Recently Relevant to Health Maintenance [place] Care Teams Asphalt Mixing Machine Operator Relationship Specialty Start Date End Date Wendy Wing PA-C [facility] [place] [address] PCP - General FAMILY MEDICINETESSA 05/08/22
--- OUTSIDE RECORDS SUMMARY | 2025-01-03 16:52 | XMS_ITS | Encounter Summary ---
Author Organization [facility] Address [address] [place] [address] Care Team Providers Care Custom Designer Name Role Phone Wendy Wing PA-C Primary Care Provider + [phone] Encounter Details Date Type Department Care Team (Late st Contact Info) Description 06/15/2024 Interim Notes [facility] [address] [place] [id number] Cuauhtemoc Garcia, RN [address] [place] [address] Tuberculosis screening (Primary Dx) Social History Tobacco [...] as of this encounter Plan of Treatment Upcoming Encounters Date Type Department Care Team (Late st Contact Info) Description 02/01/2025 10:20 AM EDT Office Visit [facility] [address] [place] [address] Wendy Wing PA-C [address] [place] [address] Scheduled Orders Name Type Priority Associated Diagnoses [...] documented as of this encounter Care Teams Custom Designer Relationship Specialty Start Date End Date Wendy Wing PA-C [address] [place] [address] PCP - General FAMILY MEDICINETESSA 05/08/22 documented as of this encounter
--- OUTSIDE RECORDS SUMMARY | 2025-01-03 16:52 | XMS_ITS | Encounter Summary ---
Author Organization [facility] Address [address] [place] [address] Care Team Providers Care Instructional Design Technologist Name Role Phone Wendy Wing PA-C Primary Care Provider [phone] Encounter Details Date Type Department Care Team (Late st Contact Info) Description 04/05/2022 Dental Interim Note [facility] [address] [place] [address] Tania Romero, S [address] [place] [address] Social History Tobacco Use Types Packs/Day Years [...] Description 02/01/2025 10:20 AM EDT Office Visit [facility] [address] [place] [address] Wendy Wing PA-C [address] [place] [address] documented as of this encounter Visit Diagnoses Not on filedocumented in this encounter Additional Health Concerns Assessment Noted Time PHQ-9 Depression Total Score: 14 12/10/2 022 3:10 PM PST documented as of this encounter Care Teams Instructional Design Technologist Relationship Specialty Start Date End Date Wendy Wing PA-C [address] [place] [address] PCP - General FAMILY MEDICINE, [place] 05/08/22 documented as of this encounter
--- OUTSIDE RECORDS SUMMARY | 2025-01-03 16:52 | XMS_ITS | Encounter Summary ---
Author Organization [facility] Address [address] [place] [address] Care Team Providers Care Toy Mechanic Name Role Phone Wendy Wing PA-C Primary Care Provider [phone] Encounter Details Date Type Department Care Team (Late st Contact Info) Description 03/01/2022 Dental Interim Note [facility] [address] [place] [phone] Aram Merissa Y [address] [place] [address] Social History Tobacco Use Types Packs/Day Years [...] Description 02/01/2025 10:20 AM EDT Office Visit [facility] [address] [place] [address] Wendy Wing PA-C [address] [place] [address] documented as of this encounter Visit Diagnoses Not on filedocumented in this encounter Additional Health Concerns Assessment Noted Time PHQ-9 Depression Total Score: 14 022 3:10 PM PST documented as of this encounter Care Teams Toy Mechanic Relationship Specialty Start Date End Date Wendy Wing PA-C [address] [place] [address] PCP - General FAMILY MEDICINETESSA 05/08/22 documented as of this encounter
--- OUTSIDE RECORDS SUMMARY | 2025-01-03 16:52 | XMS_ITS | Encounter Summary ---
Author Organization [facility] Address [address] [place] [address] Care Team Providers Care Veterinary Nurse Name Role Phone Wendy Wing PA-C Primary Care Provider [phone] Encounter Details Date Type Department Care Team (Late st Contact Info) Description 03/13/2022 Dental Interim Note [facility] [address] [place] [address] Tania Romero, S [address] [place] [address] Social History Tobacco Use Types Packs/Day Years [...] Description 02/01/2025 10:20 AM EDT Office Visit [facility] [address] [place] [address] Wendy Wing PA-C [address] [place] [address] documented as of this encounter Visit Diagnoses Not on filedocumented in this encounter Additional Health Concerns Assessment Noted Time PHQ-9 Depression Total Score: 14 022 3:10 PM PST documented as of this encounter Care Teams Veterinary Nurse Relationship Specialty Start Date End Date Wendy Wing PA-C [address] [place] [id number] PCP - General FAMILY MEDICINE, TESSA 05/08/22 documented as of this encounter
--- OUTSIDE RECORDS SUMMARY | 2025-01-03 16:52 | XMS_ITS | Encounter Summary ---
Author Organization [facility] Address [address] [place] [address] Care Team Providers Care Manager Of Housekeeping Name Role Phone Wendy Wing PA-C Primary Care Provider Encounter Details Date Type Department Care Team (Late st Contact Info) Description 03/28/2022 Dental Interim Note [facility] [address] [place] [address] Theresa Pardo, [facility] [address] [place] [address] Social History Tobacco Use Types Packs/Day Years [...] Description 02/01/2025 10:20 AM EDT Office Visit [facility] [address] [place] [address] Wendy Wing PA-C [address] [place] [address] documented as of this encounter Visit Diagnoses Not on filedocumented in this encounter Additional Health Concerns Assessment Noted Time PHQ-9 Depression Total Score: 14 12/10/2 022 3:10 PM PST documented as of this encounter Care Teams Manager Of Housekeeping Relationship Specialty Start Date End Date Wendy Wing PA-C [address] [place] [address] PCP - General FAMILY MEDICINE, [place] 05/08/22 documented as of this encounter
--- OUTSIDE RECORDS SUMMARY | 2025-01-03 16:52 | XMS_ITS | Encounter Summary ---
Author Organization [facility] Address [address] [place] [address] Care Team Providers Care Clinical Quality Assurance Specialist Name Role Phone Wendy Wing PA-C Primary Care Provider Encounter Details Date Type Department Care Team (Late st Contact Info) Description 03/24/2022 Dental Interim Note [facility] [address] [place] [phone] Tania Romero, [facility] [address] [place] [address] Social History Tobacco Use Types Packs/Day Years [...] Description 02/01/2025 10:20 AM EDT Office Visit [facility] [address] [place] [address] Wendy Wing PA-C [address] [place] [address] documented as of this encounter Visit Diagnoses Not on filedocumented in this encounter Additional Health Concerns Assessment Noted Time PHQ-9 Depression Total Score: 14 12/10/2 022 3:10 PM PST documented as of this encounter Care Teams Clinical Quality Assurance Specialist Relationship Specialty Start Date End Date Wendy Wing PA-C [address] [place] [address] PCP - General FAMILY MEDICINE, [place] 05/08/22 documented as of this encounter
== END 2025-01-03 15:02 | disposition home or self-care (01) ==
LOC: HO.HGI 14:05
PROVIDERS: PCP Physician Assistant Medical; Visit Provider Nurse Practitioner
DX: K59.04 Chronic idiopathic constipation (principal)
CPT/HCPCS: 99203

== ENCOUNTER → 2025-01-03 14:05 | Outpatient (BNVA) | payer MEDICARE, MEDICAID, SELFPAY | PROVIDERS: PCP Physician Assistant Medical; Visit Provider Nurse Practitioner | DX: K59.04 Chronic idiopathic constipation (principal) | CPT/HCPCS: 99202 ==

== ENCOUNTER 2025-01-17 11:13 | Outpatient (REF) | payer MEDICARE, MEDICAID, SELFPAY ==
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
--- OUTSIDE RECORDS SUMMARY | 2025-01-17 13:50 | XMS_ITS | Clinical Summary ---
Author Organization [facility] Address [address] [place] [address] Care Team Providers Care Fly Finisher Name Role Phone Wendy Wing PA-C Primary [...] asthma without complication ([facility]) INHALE 1 PUFF INTO THE LUNGS EVERY [...] unspecified site, unspecified whether rheumatoid factor present ([facility]) Take 1 Tablet by mouth 2 (two) [...] recurrent major depressive disorder, without psychotic features ([facility]) 12/10/2021 Other spondylosis, lumbar region 12/10/2021 Fibromyalgia [...] Description 02/01/2025 10:20 AM EDT Office Visit [facility] [address] [place] [address] Wendy Wing PA-C [address] [place] [address] Health Maintenance Due Date Last Done Comments [...] Charting 03/18/2024 03/16/2023 Dental Prophy 03/18/2024 03/16/2023 Annual Preventive Care Visit 06/15/2024 06/15/2023 Depression [...] C Screening Completed 06/17/2023 Imm-Pneumococcal Completed 03/16/2024 [id number] Completed 06/21/2024, 02/02, 05/21/2022, Additional history exists Imm-Influenza Completed 06/21/2024, 06/15/2023 Cervical Ablation/Cold-Knife Conization Discontinued Cervical Cryotherapy Discontinued Colposcopy Discontinued Endometrial Biopsy Discontinued Excision/Leep Discontinued HPV Genotyping Discontinued Vaginal Pap Discontinued Vulvoscopy Discontinued Procedures Procedure Name Priority Date/Time Associated Diagnosis Comments REFERRAL SCANNED DOCUMENT 01/03/2025 3:00 AM EDT REFERRAL SCANNED DOCUMENT 12/28/2024 3:00 AM EDT HEALTH HISTORY SCANNED DOCUMENT 10/24/2024 3:00 AM EST REFERRAL SCANNED DOCUMENT 10/19/2024 3:00 AM EST HEPATITIS C AB W/RFLX HCV RNA, QT, RT PCR Routine 06/17/2023 3:18 PM EDT Exposure to potential infection Other problems related to lifestyle COMPREHENSIVE METABOLIC PANEL Routine 06/17/2023 3:18 PM EDT Rheumatoid arthritis involving multiple sites, unspecified whether rheumatoid factor present ([facility]) LIPIDS W RFLX TO DIRECT LDL Routine 06/17/2023 3:18 PM EDT Routine general medical examination at a [facility] COMP PERIODONTAL EVALUATION - NEW/EST PATIENT Routine [...] Health Maintenance Results * REFERRAL SCANNED DOCUMENT (01/03/2025 3:00 AM EDT) Only the most recent of3 resultswithin the time period is included. 01/03/2025 3:00 AM EDT us Wendy Wing PA-C SCAN REFERRAL Final Result * HEALTH HISTORY SCANNED DOCUMENT (10/24/2024 3:00 AM EST) 10/24/2024 3:00 AM EST Chak Provider Default SCAN OTHER ORDERS Final Re sult * HEPATITIS C AB W/RFLX HCV RNA, QT, RT PCR (06/17/2023 3:18 PM EDT) HEPATITIS C ANTIBODY NON-REACT FREDDIE NON-REACT FREDDIE [facility] Comment: HCV antibody was non-reactive. There is no laboratory evidence of HCV infection. In most cases, no further action is required. However, if recent HCV exposure is suspected, a test for HCV RNA (test code 93769) is suggested. For additional information please refer to http://Modern Meadow.Netsket/faq/ZGG19e8 (This link is being provided for informational/ educational purposes only.) Blood Blood / Unknown 06/17/2023 3 :18 PM EDT 06/17/2023 3:26 PM EDT us Kyree Jim MD LAB - BLOOD DRAW Edited Resu lt - Final [facility] [address] [address], [facility] [address] [phone] * (ABNORMAL) LIPIDS W RFLX TO DIRECT LDL (06/17/2023 3:18 PM EDT) Pathologist [facility] CHOLESTEROL, TOTAL 208(H) <200 mg/dL [facility] HDL CHOLESTEROL 72 > OR = 50 mg/dL [facility] TRIGLYCERIDES 140 <150 mg/dL [facility] LDL-CHOLESTEROL 111(H) 99 mg/dL (calc) [facility] Comment: Reference range: <100 Desirable range <100 mg/dL for primary prevention; ?? <70 mg/dL for patients with CHD or diabetic patients with > or = 2 CHD risk factors. LDL-C is now calculated using the Maik-Alyssia calculation, which is a validated novel method providing better accuracy than the Friedewald equation in the estimation of LDL-C. Maik SS et al. IVONE. 2013;310(19): 2062-2869 (http://Modern [place]ow.LocalCircles/faq/TJR735) CHOL/HDLC RATIO 2.9 <5.0 (calc) [facility] NON-HDL CHOLESTEROL 136(H) <130 mg/dL (calc) [facility] Comment: For patients with diabetes plus 1 major ASCVD risk factor, treating to a non-HDL-C goal of <100 mg/dL (LDL-C of <70 mg/dL) is considered a therapeutic option. Blood Blood / Unknown 06/17/2023 3 :18 PM EDT 06/17/2023 3:26 PM EDT Kyree Jim MD LAB - BLOOD DRAW Final Resul t [facility] [place] [facility] [address] [address], [facility] [place] [facility] [address] [place] [address] * (ABNORMAL) COMPREHENSIVE METABOLIC PANEL (06/17/2023 3:18 PM EDT) GLUCOSE 146(H) 65 - 99 mg/dL [facility] Comment: ?Fasting reference interval For someone without known diabetes, a glucose value >125 mg/dL indicates that they may have diabetes and this should be confirmed with a follow-up test. UREA NITROGEN (BUN) 11 7 - 25 mg/dL [facility] CREATININE (blood) 0.90 0.50 - 0.99 mg/dL [facility] EGFR 80 > OR = 60 mL/min/1. 73m2 [facility] BUN/CREATININE RATIO SEE NOTE: [facility] Comment: ?? Not Reported: BUN and Creatinine are within ?? reference range. ? SODIUM 137 135 - 146 mmol/L [facility] POTASSIUM 3.9 3.5 - 5.3 mmol/L [facility] CHLORIDE 107 98 - 110 mmol/L [facility] CARBON DIOXIDE 21 20 - 32 mmol/L [facility] CALCIUM 8.9 8.6 - 10.2 mg/dL [facility] PROTEIN, TOTAL 7.1 6.1 - 8.1 g/dL [facility] ALBUMIN 4.5 3.6 - 5.1 g/dL [facility] GLOBULIN 2.6 1.9 - 3.7 g/dL (calc) [facility] ALBUMIN/GLOBULI N RATIO 1.7 1.0 - 2.5 (calc) [facility] BILIRUBIN, TOTAL 0.3 0.2 - 1.2 mg/dL [facility] ALKALINE PHOSPHATASE 78 31 - 125 U/L [facility] AST 16 10 - 35 U/L [facility] ALT 18 6 - 29 U/L [facility] Blood Blood / Unknown 06/17/2023 3 :18 PM EDT 06/17/2023 3:26 PM EDT Kyree Jim MD LAB - BLOOD DRAW Edited Resu lt - Final Performing Organization Address [facility] Co de Phone Number [facility] [address] [address], [facility] [address] [address] * HIV 1/2 AG & AB W/RFLX (4TH GEN) (12/31/2022 9:11 AM EDT) HIV AG/AB, 4TH GEN NON-REAC TIVE NON-REAC TIVE [facility] Comment: HIV-1 antigen and HIV-1/HIV-2 antibodies were [...] ?? For additional information please refer to http://education.Sensor Tower.Neo PLM/faq/OFL641 (This link is being provided for informational/ educational purposes only.) The performance of this assay has not been clinically validated in patients less than 2 years old. Blood Blood / Unknown 12/31/2022 9 :11 AM EDT 12/31/2022 9:11 AM EDT Jordana Torres ACTIVITIES SPECIALIST-BC LAB - BLOOD DRAW Final Re sult Performing Organization Address [facility]/ZIP Co de Phone Number [facility] [address] [place] [address], [facility] [address] [place] [address] from Last 3 Months or Most Recently Relevant to Health Maintenance Insurance [place] MEDICAID OR MEDICAID DENTAL Care Teams Fly Finisher Relationship Specialty Start Date End Date Wendy Wing PA-C [address] [place] [address] PCP - General FAMILY MEDICINETESSA 05/08/22
--- OUTSIDE RECORDS SUMMARY | 2025-01-17 13:50 | XMS_ITS | Encounter Summary ---
Author Organization [facility] Address [address] [place] [address] Care Team Providers Care Auricular Acupuncturist Name Role Phone Wendy Wing PA-C Primary Care Provider Encounter Details Date Type Department Care Team (Late st Contact Info) Description 03/24/2022 Dental Interim Note [facility] [address] [place] [phone] Tania Romero, [facility] [address] [place] [address] Social History Tobacco Use Types Packs/Day Years [...] Description 02/01/2025 10:20 AM EDT Office Visit [facility] [address] [place] [address] Wendy Wing PA-C [address] [place] [address] documented as of this encounter Visit Diagnoses Not on filedocumented in this encounter Additional Health Concerns Assessment Noted Time PHQ-9 Depression Total Score: 14 12/10/2 022 3:10 PM PST documented as of this encounter Care Teams Auricular Acupuncturist Relationship Specialty Start Date End Date Wendy Wing PA-C [address] [place] [address] PCP - General FAMILY MEDICINE, [place] 05/08/22 documented as of this encounter
--- OUTSIDE RECORDS SUMMARY | 2025-01-17 13:50 | XMS_ITS | Encounter Summary ---
Author Organization [facility] Address [address] [place] [address] Care Team Providers Care Mannequin Maker Name Role Phone Wendy Wing PA-C Primary Care Provider Encounter Details Date Type Department Care Team (Late st Contact Info) Description 03/13/2022 Dental Interim Note [facility] [address] [place] [address] Tania Romero, S [address] [place] [address] Social History Tobacco Use Types Packs/Day Years [...] Description 02/01/2025 10:20 AM EDT Office Visit [facility] [address] [place] [address] Wendy Wing PA-C [address] [place] [address] documented as of this encounter Visit Diagnoses Not on filedocumented in this encounter Additional Health Concerns Assessment Noted Time PHQ-9 Depression Total Score: 14 022 3:10 PM PST documented as of this encounter Care Teams Mannequin Maker Relationship Specialty Start Date End Date Wendy Wing PA-C [address] [place] [address] PCP - General FAMILY MEDICINE, [place] 05/08/22 documented as of this encounter
--- OUTSIDE RECORDS SUMMARY | 2025-01-17 13:50 | XMS_ITS | Encounter Summary ---
Author Organization [facility] Address [address] [place] [address] Care Team Providers Care Technical Lead Name Role Phone Wendy Wing PA-C Primary Care Provider [phone] Encounter Details Date Type Department Care Team (Late st Contact Info) Description 03/01/2022 Dental Interim Note [facility] [address] [place] [phone] Aram Merissa Y [address] [place] [address] Social History Tobacco Use Types Packs/Day Years [...] Description 02/01/2025 10:20 AM EDT Office Visit [facility] [address] [place] [address] Wendy Wing PA-C [address] [place] [address] documented as of this encounter Visit Diagnoses Not on filedocumented in this encounter Additional Health Concerns Assessment Noted Time PHQ-9 Depression Total Score: 14 022 3:10 PM PST documented as of this encounter Care Teams Technical Lead Relationship Specialty Start Date End Date Wendy Wing PA-C [address] [place] [address] PCP - General FAMILY MEDICINETESSA 05/08/22 documented as of this encounter
--- OUTSIDE RECORDS SUMMARY | 2025-01-17 13:50 | XMS_ITS | Encounter Summary ---
Author Organization [facility] Address [address] [place] [address] Care Team Providers Care Industrial Engineering Professor Name Role Phone Wendy Wing PA-C Primary Care Provider [phone] Encounter Details Date Type Department Care Team (Late st Contact Info) Description 04/05/2022 Dental Interim Note [facility] [address] [place] [address] Tania Romero, S [address] [place] [address] Social History Tobacco Use Types Packs/Day Years [...] Description 02/01/2025 10:20 AM EDT Office Visit [facility] [address] [place] [address] Wendy Wing PA-C [address] [place] [address] documented as of this encounter Visit Diagnoses Not on filedocumented in this encounter Additional Health Concerns Assessment Noted Time PHQ-9 Depression Total Score: 14 12/10/2 022 3:10 PM PST documented as of this encounter Care Teams Industrial Engineering Professor Relationship Specialty Start Date End Date Wendy Wing PA-C [address] [place] [address] PCP - General FAMILY MEDICINE, [place] 05/08/22 documented as of this encounter
--- OUTSIDE RECORDS SUMMARY | 2025-01-17 13:50 | XMS_ITS | Encounter Summary ---
Author Organization [facility] Address [address] [place] [address] Care Team Providers Care Production Tech Name Role Phone Wendy Wing PA-C Primary Care Provider Encounter Details Date Type Department Care Team (Late st Contact Info) Description 03/28/2022 Dental Inter[address] [facility] [address] [place] [address] Theresa Pardo, [facility] [address] [place] [address] Social History Tobacco Use Types Packs/Day Years [...] Description 02/01/2025 10:20 AM EDT Office Visit [facility] [address] [place] [address] Wendy Wing PA-C [address] [place] [address] documented as of this encounter Visit Diagnoses Not on filedocumented in this encounter Additional Health Concerns Assessment Noted Time PHQ-9 Depression Total Score: 14 12/10/2 022 3:10 PM PST documented as of this encounter Care Teams Production Tech Relationship Specialty Start Date End Date Wendy Wing PA-C [address] [place] [address] PCP - General FAMILY MEDICINE, [place] 05/08/22 documented as of this encounter
--- OUTSIDE RECORDS SUMMARY | 2025-01-17 13:50 | XMS_ITS | Encounter Summary ---
Author Organization [facility] Address [address] [place] [address] Care Team Providers Care Chief Human Resources Officer Name Role Phone Wendy Wing PA-C Primary Care Provider [phone] Encounter Details Date Type Department Care Team (Late st Contact Info) Description 06/15/2024 Interim Notes [facility] [address] [place] [phone] Cuauhtemoc Garcia, RN [address] [place] [address] Tuberculosis screening (Primary Dx) Social History Tobacco [...] Description 02/01/2025 10:20 AM EDT Office Visit [facility] [address] [place] [address] Wendy Wing PA-C [address] [place] [address] Scheduled Orders Name Type Priority Associated Diagnoses [...] documented as of this encounter Care Teams Chief Human Resources Officer Relationship Specialty Start Date End Date Wendy Wing PA-C [address] [place] [address] PCP - General FAMILY MEDICINETESSA 05/08/22 documented as of this encounter
== END 2025-01-17 11:14 | disposition home or self-care (01) ==
LOC: HO.HMGCX 11:13
PROVIDERS: Visit Provider Physician Assistant Surgical
DX: L76.34 Postprocedural seroma of skin and subcutaneous tissue following other procedure (principal); R10.9 Unspecified abdominal pain; Z98.890 Other specified postprocedural states
CPT/HCPCS: 76705

== ENCOUNTER → 2025-01-17 11:16 | Outpatient (BNV) | payer MEDICARE, MEDICAID, SELFPAY | PROVIDERS: Visit Provider Radiology Diagnostic Radiology | DX: L76.34 Postprocedural seroma of skin and subcutaneous tissue following other procedure (principal) | CPT/HCPCS: 76705 ==

== ENCOUNTER 2025-02-28 11:04 | Outpatient (AMB) | payer MEDICARE, MEDICAID, SELFPAY ==
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
[2025-02-28 11:52] VITALS: BP 136/80; PULSE 88; TEMP 36.4; O2SAT 99; BMI 26.7
--- OUTSIDE RECORDS SUMMARY | 2025-02-28 11:53 | XMS_ITS | Clinical Summary ---
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 Role Phone Wendy Wing PA-C Primary [...] Take 5 mg by mouth once daily 021 Active ibuprofen 600 mg tablet Take 1 Tablet by mouth 4 (four) times daily as needed for pain 20 Tablet 021 Active clotrimazole 1 % vaginal creamIndication s:Vaginal discharge Place 1 Applicator vaginally nightly at bedtime 45 g 022 Active cholecalciferol , vitamin D3, 10 mcg (400 unit) tabletIndicatio ns:Vitamin D deficiency Take 10 mcg by mouth 021 Active doxycycline hyclate [address] tablet Take by mouth A ctive ibuprofen 800 mg tabletIndicatio ns:Pain, dental Take 1 Tablet by mouth 3 (three) times daily as needed for pain 15 Tablet 023 Active amoxicillin (AMOXIL) 500 mg capsuleIndicati ons:Pain, dental Take 1 Capsule by mouth 3 (three) times daily 21 Capsule 023 Active NFDB - BORIC ACID CAPSULESIndicat ions:Lisa glabrata infection Insert vaginally nightly before bed for 14 days; PLEASE DO NOT SWALLOW, VAGINAL USE ONLY, MAY BE FATAL IF INGESTED 14 Capsule 023 Active sennosides-docu sate sodium (AC-COLACE) 8.6-50 mg per tabletIndicatio ns:Slow transit constipation Take 1 Tablet by mouth once daily as needed for constipation 30 Tablet 1 024 Active gabapentin (NEURONTIN) 300 mg capsuleIndicati ons:Fibromyalgi a Take 1 Capsule by mouth daily. 30 Capsule 2 024 Active famotidine (PEPCID) 40 mg tabletIndicatio ns:H/O gastric bypass Take 1 Tablet by mouth once daily 90 Tablet 1 024 Active clonazePAM (KLONOPIN) 0.5 mg tabletIndicatio ns:Anxiety,Anxi ety and depression Take 1 Tablet by mouth 3 (three) times daily as needed for anxiety for up to 10 days 30 Tablet 024 Active melatonin 3 mg tablet TAKE ONE-TWO (1-2) TABLETS BY MOUTH EVERY EVENING 024 Active busPIRone (BUSPAR) 5 mg tabletIndicatio ns:Anxiety and depression,Anxi ety TAKE 1 TABLET BY MOUTH TWICE A DAY 180 Tablet 1 024 Active doxepin (SINEQUAN) 50 mg capsuleIndicati ons:Anxiety and depression TAKE 1 CAPSULE BY MOUTH NIGHTLY AT BEDTIME. 90 Capsule 1 025 Active diclofenac sodium (VOLTAREN) [address] tabletIndicatio ns:Fibromyalgia ,Rheumatoid arthritis, involving unspecified site, unspecified whether rheumatoid factor present ([facility]) TAKE 1 TABLET BY MOUTH TWICE A DAY 60 Tablet 5 025 Active albuterol HFA 90 mcg/actuation inhalerIndicati ons:Mild intermittent asthma without complication ([facility]) Inhale 2 Puffs into the lungs every 4 (four) hours as needed for wheezing or shortness of breath 18 g 2 025 Active levalbuterol tartrate (XOPENEX HFA) 45 mcg/actuation inhalerIndicati ons:Mild intermittent asthma without complication ([facility]) INHALE 1 PUFF INTO THE LUNGS EVERY 6 HOURS NEEDED FOR SHORTNESS OF BREATH OR WHEEZING 15 g 2 024 2024 Discontinued albuterol HFA 90 mcg/actuation inhalerIndicati ons:Mild intermittent asthma without complication ([facility]) Inhale 2 Puffs into the lungs every 4 (four) hours as needed for wheezing or shortness of breath 18 g 2 025 2024 Discontinued(E rror) Active Problems Problem Noted Date Diagnosed Date Bariatric surgery status 06/15/2023 Overview (06/15/2023): William en Kenji, 2017 Severe episode of recurrent major depressive disorder, without psychotic features (HCC-CMS) 12/10/2021 Other spondylosis, lumbar region 12/10/2021 Fibromyalgia [...] Health Maintenance Due Date Last Done Comments HPV Screening 1976 Pap + HPV 1976 Medicare Annual Wellness Visit 1994 Imm-Hepatitis B (1 of 3 - 19 + 3-dose series) 1995 Cervical Cancer Screening 1997 Pap Smear 1997 Breast Cancer Screening (Mammogram) 2016 CT Colonography 2021 Colonoscopy 2021 Colorectal Cancer Screening 2021 FIT/gFOBT 2021 Fecal DNA 2021 Flexible Sigmoidoscopy 2021 Dental BW 03/18/2024 03/16/2023, 06/26/2022 Dental Examination 03/18/2024 03/16/2023, 06/26/2022 Dental Perio Charting 03/18/2024 03/16/2023 Dental Prophy 03/18/2024 03/16/2023 Annual Wellness (Adult): Indicated (All Coverage) 06/15/2024 06/15/2023 Depression Monitoring 06/16/2024 03/16/2024 , 06/15/2023, 09/08/2022, Additional history exists Alcohol and Drug Screen 10/05/2024 03/16/20 24, 06/15/2023, 09/08/2022, Additional history exists Anxiety Screening 03/16/2025 03/16/2024 Relationship Safety Screening/Counseling 03/16/2025 03/16/2024, 06/15/2023, 09/08/2022, Additional history exists Tobacco Screening 03/16/2025 03/16/2024 Hypertension Screening (#1) 08/26/2025 Diabetes Screening 06/17/2026 06/17/2023, 0 05/15/2021, 05/15/2021, Additional history exists Dental FMX/Pano 11/24/2027 11/22/2022 Lipid Screening 06/17/2028 06/17/2023, 05/15/2021 Imm-DTaP/Tdap/Td (3 - Td or Tdap) 03/16/2034 024, 05/21/2017 HIV Screening Completed 12/31/2022, 09/09/2022 Hepatitis C Screening Completed 06/17/2023 Imm-Pneumococcal Completed 03/16/2024 [id number] Completed 06/21/2024, 02/02, 05/21/2022, Additional history exists Imm-Influenza Completed 06/21/2024, 06/15/2023 Cervical Ablation/Cold-Knife Conization Discontinued Cervical Cryotherapy Discontinued Colposcopy Discontinued Endometrial Biopsy Discontinued Excision/Leep Discontinued HPV Genotyping Discontinued Vaginal Pap Discontinued Vulvoscopy Discontinued Procedures Procedure Name Priority Date/Time Associated Diagnosis Comments REFERRAL SCANNED DOCUMENT 01/03/2025 3:00 AM EDT REFERRAL SCANNED DOCUMENT 12/28/2024 3:00 AM EDT HEPATITIS C AB W/RFLX HCV RNA, QT, RT PCR Routine 06/17/2023 3:18 PM EDT Exposure to potential infection Other problems related to lifestyle COMPREHENSIVE METABOLIC PANEL Routine 06/17/2023 3:18 PM EDT Rheumatoid arthritis involving multiple sites, unspecified whether rheumatoid factor present ([facility]) LIPIDS W RFLX TO DIRECT LDL [...] 3:00 AM EDT) Only the most recent of2 resultswithin the time period is included. 01/03/2025 3:00 AM EDT Wendy Wing PA-C SCAN REFERRAL Final Result * Hep C Antibody with Reflex HCV RNA (06/17/2023 3:18 PM EDT) HEPATITIS C ANTIBODY NON-REACT FREDDIE NON-REACT FREDDIE [facility] Comment: HCV antibody was non-reactive. There is no laboratory evidence of HCV infection. In most cases, no further action is required. However, if recent HCV exposure is suspected, a test for HCV RNA (test code 43714) is suggested. For additional information please refer to http://education.CDEL/faq/GXO84i2 (This link is being provided for informational/ educational purposes only.) Blood Blood / Unknown 06/17/2023 3 :18 PM EDT 06/17/2023 3:26 PM EDT Kyree Jim MD LAB - BLOOD DRAW Edited Resu lt - Final Performing Organization Address City/[facility]/ZIP Co de Phone Number [facility] [address] [address], [facility] [address] [address] * (ABNORMAL) Lipid Panel (with Reflex Direct LDL) (06/17/2023 3:18 PM EDT) [facility] Signature CHOLESTEROL, TOTAL 208(H) <200 mg/dL [facility] HDL CHOLESTEROL 72 > OR = 50 mg/dL [facility] TRIGLYCERIDES 140 <150 mg/dL [facility] LDL-CHOLESTEROL 111(H) 99 mg/dL (calc) [facility] Comment: Reference range: <100 Desirable range <100 mg/dL for primary prevention; ?? <70 mg/dL for patients with CHD or diabetic patients with > or = 2 CHD risk factors. LDL-C is now calculated using the Maik-Alyssia calculation, which is a validated novel method providing better accuracy than the Friedewald equation in the estimation of LDL-C. Maik SS et al. IVONE. 2013;310(19): 9846-0916 (http://education.MemBlaze/faq/KYN451) CHOL/HDLC RATIO 2.9 <5.0 (calc) [facility] NON-HDL CHOLESTEROL 136(H) <130 mg/dL (calc) [facility] Comment: For patients with diabetes plus 1 major ASCVD risk factor, treating to a non-HDL-C goal of <100 mg/dL (LDL-C of <70 mg/dL) is considered a therapeutic option. Blood Blood / Unknown 06/17/2023 3 :18 PM EDT 06/17/2023 3:26 PM EDT us Kyree Jim MD LAB - BLOOD DRAW Final Resul t Performing Organization Address City/[facility]/ZIP Co de Phone Number [facility] [address] [address], [facility] [address] [phone] * (ABNORMAL) CMP (06/17/2023 3:18 PM EDT) GLUCOSE 146(H) 65 - 99 mg/dL [facility] Comment: ?Fasting reference interval For someone without known diabetes, a glucose value >125 mg/dL indicates that they may have diabetes and this should be confirmed with a follow-up test. UREA NITROGEN (BUN) 11 7 - 25 mg/dL [facility] CREATININE (blood) 0.90 0.50 - 0.99 mg/dL [employer] EGFR 80 > OR = 60 mL/min/1. 73m2 [employer] BUN/CREATININE RATIO SEE NOTE: [facility] Comment: ?? Not Reported: BUN and Creatinine are within ?? reference range. ? SODIUM 137 135 - 146 mmol/L [facility] POTASSIUM 3.9 3.5 - 5.3 mmol/L [employer] CHLORIDE 107 98 - 110 mmol/L [facility] CARBON DIOXIDE 21 20 - 32 mmol/L [facility] CALCIUM 8.9 8.6 - 10.2 mg/dL [facility] PROTEIN, TOTAL 7.1 6.1 - 8.1 g/dL [facility] ALBUMIN 4.5 3.6 - 5.1 g/dL [facility] [place] [employer] GLOBULIN 2.6 1.9 - 3.7 g/dL (calc) [facility] ALBUMIN/GLOBULI N RATIO 1.7 1.0 - 2.5 (calc) [facility] [place] [employer] BILIRUBIN, TOTAL 0.3 0.2 - 1.2 mg/dL [facility] ALKALINE PHOSPHATASE 78 31 - 125 U/L [facility] AST 16 10 - 35 U/L [employer] [facility] ALT 18 6 - 29 U/L [facility] Blood Blood / Unknown 06/17/2023 3 :18 PM EDT 06/17/2023 3:26 PM EDT us Kyree Jim MD LAB - BLOOD DRAW Edited Resu lt - Final [facility] [address] [address], [facility] [address] [place] [address] * HIV 1/2 AG & AB W/RFLX (4TH GEN) (12/31/2022 9:11 AM EDT) HIV AG/AB, 4TH GEN NON-REAC TIVE NON-REAC TIVE [facility] Comment: HIV-1 antigen and HIV-1/HIV-2 antibodies [...] ?? For additional information please refer to http://education.CDEL/faq/PBV074 (This link is being provided for informational/ educational purposes only.) The performance of this assay has not been clinically validated in patients less than 2 years old. Blood Blood / Unknown 12/31/2022 9 :11 AM EDT 12/31/2022 9:11 AM EDT Jordana Torres [facility] LAB - BLOOD DRAW Final Re sult [facility] [address] [address], [facility] [address] [place] [address] from Last 3 Months or Most Recently Relevant to Health Maintenance Insurance [employer] PREFERRED Member Subscriber Plan / Payer (Ef fective 2021-Present) Name:Ambrose ChiuAshley naik Relation to Subscriber:Self Name:Ambrose Chiu Ashley Payer ID:[id number] Group ID:Not on file Type:Medicare Address: [facility] [address] [place] [address] [place] Care Teams Electric Arc Welder Relationship Specialty Start Date End Date Wendy Wing PA-C [address] [place] [address] PCP - General FAMILY MEDICINETESSA 05/08/22
== END 2025-02-28 11:45 | disposition home or self-care (01) ==
LOC: HO.HBS 11:05
PROVIDERS: Visit Provider Physician Assistant Surgical
DX: R10.32 Left lower quadrant pain (principal); E66.3 Overweight; Z68.26 Body mass index [BMI] 26.0-26.9, adult; Z98.84 Bariatric surgery status
CPT/HCPCS: 99213; G2211

== ENCOUNTER → 2025-02-28 11:04 | Outpatient (BNVA) | payer MEDICARE, MEDICAID, SELFPAY | PROVIDERS: Visit Provider Physician Assistant Surgical | DX: Z98.84 Bariatric surgery status (principal) | CPT/HCPCS: 99212 ==